=== PATIENT | male | born 1950 | race African-American/Black ===

== ENCOUNTER 2018-01-13 11:32 | Inpatient (IN) ==
[2018-01-17 11:28] VITALS: BP 121/64
== END 2018-01-17 15:00 | disposition home health service (06) | DRG 638 ==
LOC: N.ED 11:32 → N.EDINP 14:43 → SUATTDRO 14:43 → N.3E 16:10
PROVIDERS: ATTEND Internal Medicine Infectious Disease

== ENCOUNTER 2018-01-29 15:54 | Inpatient (IN) ==
[2018-01-29 17:06] LABS: Basophils # 0.1 10*3/uL (0.0-0.2); Basophils % 0.9 % (0.0-0.8); Eosinophils # 0.1 10*3/uL (0.0-0.87); Eosinophils % 2.2 % (0.00-10.9); Hematocrit 27.9 VOL% (42.0-52.0); Immature Granulocytes % 0.2 %; Immature Granulocytes Absolute 0.01 #; Lymphocytes # 2.2 10*3/uL (1.4-4.0); Lymphocytes % 39.5 % (21.2-54.2); Mean Corpuscular HGB Conc 32.3 GM/DL (32-36); Mean Corpuscular Hemoglobin 29 PG (27-34); Mean Corpuscular Volume 90.9 FL (87-102); Mean Platelet Volume 9.9 FL (9.6-12.0); Monocytes # 0.6 10*3/uL (0.11-0.8); Monocytes % 10.9 % (1.7-12.7); Neutrophils # 2.6 10*3/uL (1.4-7.4); Neutrophils % 46.3 % (38.7-73.9); Platelet Count 301 T/CUMM (130-400); Red Blood Count 3.07 MC/CUMM (3.8-5.5); Red Cell Distribution Width 16.1 % (9.3-17.3); White Blood Count 5.5 T/CUMM (4-12)
[2018-01-29 17:32] LABS: Alanine Aminotransferase 50 U/L (16-61); Albumin 1.4 G/DL (3.4-5.0); Alkaline Phosphatase 100 U/L (45-117); Aspartate Amino Transferase 41 U/L (0-37); Bilirubin,Total < 0.39 MG/DL (0.2-1.0); Blood Urea Nitrogen 11 MG/DL (7-18); Calcium 7.8 MG/DL (8.5-10.1); Glucose 199 MG/DL (74-106); Osmolality,Calculated 277.8 MOS/KG (273-304); Potassium 4.8 MMOL/L (3.5-5.1); Sodium 137 MMOL/L (136-145); Total Protein 6.2 G/DL (6.4-8.3)
[2018-01-29 20:19] LABS: INR 1.1; PT Patient Result 11.3 SECS; Partial Thromboplastin Time 28.2 SECS (0-40)
[2018-01-29 21:15] LABS: Apearance,Urine CLEAR (Clear); Bilirubin,Urine Negative (Negative); Blood, Urine Negative (Negative); Glucose,Urine (UA) 50 mg/dL (Negative); Ketones,Urine Negative (Negative); Nitrite,Urine Negative (Negative); Protein,Urine Negative; Squamous Epithelial Cell,Urine Occasional /HPF (0-10); Urine Color Yellow (Yellow); Urine Specific Gravity 1.008 (1.001-1.035); Urine Urobilinogen < 2.0 EU/DL (0.2-1.0); WBC,Urine <1 /HPF (0-6)
[2018-01-29] MEDS ORDERED: FUROSEMIDE 40 MG/4 ML VIAL IV STA (21:52)
[2018-01-30] MEDS ORDERED: POTASSIUM CHLORIDE 20 MEQ TABLET PO PRN (00:11)
[2018-01-30] MEDS ORDERED: GLUCAGON 1 MG VIAL IM PRN (00:11)
[2018-01-30] MEDS ORDERED: DEXTROSE 50% 25 GM/50 ML VIAL IV PRN (00:11)
[2018-01-30] MEDS: MORPHINE 4 MG/1 ML VIAL IV PRN ×5 (00:54→21:10)
[2018-01-30] MEDS: INSULIN REGULAR 100 UNIT/ML SUBCUT SCH ×4 (00:54→18:20)
[2018-01-30 01:19] LABS: % Iron Saturation 53.4 % (18-50); Free T4 (Free Thyroxine) 1.03 NG/DL (0.76-1.46); Total Protein 6.7 G/DL (6.4-8.3)
[2018-01-30 01:21] LABS: Risk Ratio 1.79
[2018-01-30 01:28] LABS: Basophils # 0.1 10*3/uL (0.0-0.2); Eosinophils # 0.1 10*3/uL (0.0-0.87); Eosinophils % 2.7 % (0.00-10.9); Hemoglobin 9.3 GM/DL (14.0-18.0); Immature Granulocytes % 0.4 %; Immature Granulocytes Absolute 0.02 #; Lymphocytes % 41.5 % (21.2-54.2); Mean Corpuscular HGB Conc 32.1 GM/DL (32-36); Mean Corpuscular Hemoglobin 29 PG (27-34); Mean Corpuscular Volume 90.1 FL (87-102); Monocytes # 0.5 10*3/uL (0.11-0.8); Neutrophils # 2.1 10*3/uL (1.4-7.4); Neutrophils % 43.4 % (38.7-73.9); Platelet Count 416 T/CUMM (130-400); Red Blood Count 3.22 MC/CUMM (3.8-5.5); White Blood Count 4.9 T/CUMM (4-12)
[2018-01-30 01:55] LABS: Macrocytosis Slight; Platelet Estimate Normal; Polychromasia Slight
[2018-01-30 05:31] LABS: Folate 13.3 NG/ML (5.4-24.0); HIV Antigen/Antibody Result Nonreactive (Nonreactive); Hepatitis A Ab IgM Quant 0.17 Index; Hepatitis A Ab IgM Result Negative (Negative); Hepatitis B Core IgM Quant 0.18 Index; Hepatitis B Core IgM Result Negative (Negative); Hepatitis B Surface Ag Quant 0.72 Index; Hepatitis B Surface Ag Result Negative (Negative); Hepatitis C Virus Ab Quant 0.21 Index; Hepatitis C Virus Ab Result Negative (Negative); Vitamin B12 1192 PG/ML (211-911)
[2018-01-30 07:46] LABS: Total Protein (Chem) 6.7 G/DL (6.4-8.3)
[2018-01-30] MEDS ORDERED: metFORMIN 500 MG TABLET PO SCH (08:00)
[2018-01-30 08:23] LABS: Eosinophils 4 % (0-10); Lymphocytes 43 % (20-55); Segmented Neutrophils 46 % (50-85); Total Cells Counted 100
[2018-01-30] MEDS: GABAPENTIN 300 MG CAPSULE PO SCH ×2 (09:19→21:10)
[2018-01-30] MEDS: ASCORBIC ACID 500 MG TABLET PO SCH (09:20)
[2018-01-30] MEDS: FERROUS SULFATE 325 MG TABLET PO SCH ×2 (09:21→21:10)
[2018-01-30] MEDS: CHOLECALCIFEROL 400 UNIT TABLET PO SCH ×2 (09:21→21:10)
[2018-01-30] MEDS: ASPIRIN EC 81 MG TABLET PO SCH (09:21)
[2018-01-30] MEDS: DOCUSATE SODIUM 100 MG CAPSULE PO SCH ×2 (09:22→21:10)
[2018-01-30] MEDS: MAGNESIUM OXIDE 400 MG TABLET PO SCH (09:22)
[2018-01-30] MEDS: PANTOPRAZOLE 40 MG TABLET PO SCH (09:22)
[2018-01-30] MEDS: NEBIVOLOL 5 MG TABLET PO SCH (09:23)
[2018-01-30] MEDS: TERBINAFINE 250 MG TABLET PO SCH (09:23)
[2018-01-30] MEDS: FUROSEMIDE 40 MG/4 ML VIAL IV SCH ×2 (09:26→15:25)
[2018-01-30 10:14] LABS: Albumin (SPE) 2.1 G/DL (3.2-5.3); Albumin (SPE) Rel % 31.3 %; Alpha 1 (SPE) 0.3 G/DL (0.1-0.4); Alpha 1 (SPE) Rel % 4.5 %
[2018-01-30 10:15] LABS: Alpha 2 (SPE) Rel % 14.7 %; Beta (SPE) 0.8 G/DL (0.5-1.1); Beta (SPE) Rel % 11.6 %; Gamma (SPE) 2.5 G/DL (0.7-1.7); Gamma (SPE) Rel % 37.9 %
[2018-01-30] MEDS: LEVOTHYROXINE 100 MCG VIAL IV SCH (10:59)
[2018-01-30] MEDS: metFORMIN 500 MG TABLET PO SCH (18:20)
[2018-01-30 20:06] LABS: Basophils % 0.6 % (0.0-0.8); Eosinophils # 0.1 10*3/uL (0.0-0.87); Eosinophils % 2.5 % (0.00-10.9); Hematocrit 27.6 VOL% (42.0-52.0); Hemoglobin 8.8 GM/DL (14.0-18.0); Immature Granulocytes % 0.4 %; Immature Granulocytes Absolute 0.02 #; Lymphocytes # 1.6 10*3/uL (1.4-4.0); Lymphocytes % 34.1 % (21.2-54.2); Mean Corpuscular HGB Conc 31.9 GM/DL (32-36); Mean Corpuscular Hemoglobin 29 PG (27-34); Mean Corpuscular Volume 90.2 FL (87-102); Mean Platelet Volume 9.6 FL (9.6-12.0); Monocytes # 0.6 10*3/uL (0.11-0.8); Monocytes % 12.3 % (1.7-12.7); Neutrophils # 2.4 10*3/uL (1.4-7.4); Neutrophils % 50.1 % (38.7-73.9); Platelet Count 384 T/CUMM (130-400); Red Blood Count 3.06 MC/CUMM (3.8-5.5); Red Cell Distribution Width 16.1 % (9.3-17.3); White Blood Count 4.7 T/CUMM (4-12)
[2018-01-30 20:38] LABS: Immunoglobulin A 454 MG/DL (70-400); Immunoglobulin G 1750 MG/DL (700-1600); Immunoglobulin M 75 MG/DL (40-230)
[2018-01-31 05:15] LABS: Eosinophils 2 % (0-10); Lymphocytes 39 % (20-55); Segmented Neutrophils 53 % (50-85); Total Cells Counted 100
[2018-01-31 05:19] LABS: Macrocytosis Slight; Platelet Estimate Normal; Polychromasia Slight
[2018-01-31] MEDS: LEVOTHYROXINE 100 MCG VIAL IV SCH (06:43)
[2018-01-31] MEDS: INSULIN REGULAR 100 UNIT/ML SUBCUT SCH ×4 (06:48→18:36)
[2018-01-31] MEDS: MORPHINE 4 MG/1 ML VIAL IV PRN ×3 (07:06→18:16)
[2018-01-31 08:14] LABS: Immunoglobulin A (Chem) 454 MG/DL (70-400); Immunoglobulin G (Chem) 1750 MG/DL (700-1600); Immunoglobulin M (Chem) 75 MG/DL (40-230)
[2018-01-31] MEDS: FUROSEMIDE 40 MG/4 ML VIAL IV SCH ×2 (09:46→16:59)
[2018-01-31] MEDS: PANTOPRAZOLE 40 MG TABLET PO SCH (09:53)
[2018-01-31] MEDS: NEBIVOLOL 5 MG TABLET PO SCH (09:54)
[2018-01-31] MEDS: ASPIRIN EC 81 MG TABLET PO SCH (09:54)
[2018-01-31] MEDS: ASCORBIC ACID 500 MG TABLET PO SCH (09:54)
[2018-01-31] MEDS: FERROUS SULFATE 325 MG TABLET PO SCH ×2 (09:54→21:48)
[2018-01-31] MEDS: MAGNESIUM OXIDE 400 MG TABLET PO SCH (09:54)
[2018-01-31] MEDS: DOCUSATE SODIUM 100 MG CAPSULE PO SCH ×2 (09:55→21:48)
[2018-01-31] MEDS: CHOLECALCIFEROL 400 UNIT TABLET PO SCH ×2 (09:55→21:48)
[2018-01-31] MEDS: GABAPENTIN 300 MG CAPSULE PO SCH ×2 (09:55→21:48)
[2018-01-31] MEDS: TERBINAFINE 250 MG TABLET PO SCH (09:55)
[2018-01-31] MEDS: metFORMIN 500 MG TABLET PO SCH ×2 (09:55→17:03)
[2018-01-31] MEDS ORDERED: LIDOCAINE 1% 20 ML VIAL MISC INJ ONE (15:04)
[2018-01-31] MEDS: SKIN HEALING OINT (AQUAPHOR) 50 GM TUBE TOP SCH (17:45)
[2018-01-31] MEDS: BACITRACIN OINT 0.9 GM PACK TOP SCH (17:45)
[2018-01-31 20:41] LABS: Collection Time,Urine 24 HOURS
[2018-01-31 20:42] LABS: Total Protein 24 Hr Ur Result 148 MG/24HR (0-149.1); Total Volume,Urine 1850 ML (400-2000)
[2018-02-01] MEDS: MORPHINE 4 MG/1 ML VIAL IV PRN ×4 (02:09→20:33)
[2018-02-01 06:03] LABS: Basophils % 0.4 % (0.0-0.8); Eosinophils # 0.1 10*3/uL (0.0-0.87); Eosinophils % 2.8 % (0.00-10.9); Hematocrit 23.2 VOL% (42.0-52.0); Hemoglobin 7.7 GM/DL (14.0-18.0); Immature Granulocytes % 0.2 %; Immature Granulocytes Absolute 0.01 #; Lymphocytes # 1.6 10*3/uL (1.4-4.0); Lymphocytes % 34.1 % (21.2-54.2); Mean Corpuscular HGB Conc 33.2 GM/DL (32-36); Mean Corpuscular Hemoglobin 29 PG (27-34); Mean Corpuscular Volume 88.5 FL (87-102); Mean Platelet Volume 10.2 FL (9.6-12.0); Monocytes # 0.6 10*3/uL (0.11-0.8); Monocytes % 11.9 % (1.7-12.7); NRBC # 0.02 10*3/uL; Neutrophils # 2.4 10*3/uL (1.4-7.4); Neutrophils % 50.6 % (38.7-73.9); Platelet Count 338 T/CUMM (130-400); Red Blood Count 2.62 MC/CUMM (3.8-5.5); Red Cell Distribution Width 16.2 % (9.3-17.3); White Blood Count 4.6 T/CUMM (4-12)
[2018-02-01 06:30] LABS: Bilirubin,Total 0.4 MG/DL (0.2-1.0); Calcium 7.1 MG/DL (8.5-10.1); Total Protein 4.6 G/DL (6.4-8.3)
[2018-02-01 06:31] LABS: Potassium 4.4 MMOL/L (3.5-5.1)
[2018-02-01] MEDS: LEVOTHYROXINE 100 MCG VIAL IV SCH (06:51)
[2018-02-01] MEDS ORDERED: SODIUM CHLORIDE 0.9% 1,000 ML IV PRN (07:00)
[2018-02-01] MEDS: INSULIN REGULAR 100 UNIT/ML SUBCUT SCH ×4 (07:09→17:09)
[2018-02-01] MEDS: FUROSEMIDE 40 MG/4 ML VIAL IV SCH ×2 (09:22→15:34)
[2018-02-01] MEDS: TERBINAFINE 250 MG TABLET PO SCH (09:23)
[2018-02-01] MEDS: GABAPENTIN 300 MG CAPSULE PO SCH ×2 (09:23→20:28)
[2018-02-01] MEDS: DOCUSATE SODIUM 100 MG CAPSULE PO SCH ×2 (09:23→20:28)
[2018-02-01] MEDS: ASCORBIC ACID 500 MG TABLET PO SCH (09:23)
[2018-02-01] MEDS: MAGNESIUM OXIDE 400 MG TABLET PO SCH (09:23)
[2018-02-01] MEDS: ASPIRIN EC 81 MG TABLET PO SCH (09:23)
[2018-02-01] MEDS: PANTOPRAZOLE 40 MG TABLET PO SCH (09:23)
[2018-02-01] MEDS: metFORMIN 500 MG TABLET PO SCH ×2 (09:23→16:53)
[2018-02-01] MEDS: CHOLECALCIFEROL 400 UNIT TABLET PO SCH ×2 (09:23→20:28)
[2018-02-01] MEDS: NEBIVOLOL 5 MG TABLET PO SCH (09:24)
[2018-02-01] MEDS: FERROUS SULFATE 325 MG TABLET PO SCH ×2 (09:24→20:28)
[2018-02-01] MEDS: BACITRACIN OINT 0.9 GM PACK TOP SCH (09:27)
[2018-02-01] MEDS: SKIN HEALING OINT (AQUAPHOR) 50 GM TUBE TOP SCH (09:27)
[2018-02-01 13:53] LABS: Immuno Free Light Chain Kappa 4.94 MG/DL (0.33-1.94); Immuno Free Light Chain Lambda 7.92 MG/DL (0.57-2.63); Immuno Free Light Chain Ratio 0.62 MG/DL (0.26-1.65)
[2018-02-02] MEDS: INSULIN REGULAR 100 UNIT/ML SUBCUT SCH ×3 (00:38→14:00)
[2018-02-02] MEDS: MORPHINE 4 MG/1 ML VIAL IV PRN (05:47)
[2018-02-02 06:18] LABS: Basophils % 0.5 % (0.0-0.8); Eosinophils # 0.2 10*3/uL (0.0-0.87); Eosinophils % 3.6 % (0.00-10.9); Hematocrit 30.4 VOL% (42.0-52.0); Immature Granulocytes % 0.5 %; Immature Granulocytes Absolute 0.03 #; Lymphocytes # 1.7 10*3/uL (1.4-4.0); Lymphocytes % 31.4 % (21.2-54.2); Mean Corpuscular HGB Conc 32.9 GM/DL (32-36); Mean Corpuscular Hemoglobin 29 PG (27-34); Mean Corpuscular Volume 87.6 FL (87-102); Mean Platelet Volume 10.2 FL (9.6-12.0); Monocytes # 0.6 10*3/uL (0.11-0.8); Neutrophils # 2.9 10*3/uL (1.4-7.4); Platelet Count 315 T/CUMM (130-400); Red Blood Count 3.47 MC/CUMM (3.8-5.5); Red Cell Distribution Width 16.9 % (9.3-17.3); White Blood Count 5.5 T/CUMM (4-12)
[2018-02-02] MEDS: LEVOTHYROXINE 100 MCG VIAL IV SCH (06:20)
[2018-02-02 06:55] LABS: Albumin 1.1 G/DL (3.4-5.0); Bilirubin,Total 0.4 MG/DL (0.2-1.0); Calcium 7.5 MG/DL (8.5-10.1); Osmolality,Calculated 280.3 MOS/KG (273-304); Potassium 4.6 MMOL/L (3.5-5.1); Total Protein 5.1 G/DL (6.4-8.3)
[2018-02-02] MEDS ORDERED: MAGNESIUM SULF RIDER 4 GM in PREMIX 1 EACH IV PRN (07:08)
[2018-02-02] MEDS ORDERED: MAGNESIUM SULF RIDER 2 GM in PREMIX 1 EACH IV PRN (07:08)
[2018-02-02] MEDS: metFORMIN 500 MG TABLET PO SCH (09:06)
[2018-02-02] MEDS: FERROUS SULFATE 325 MG TABLET PO SCH (09:07)
[2018-02-02] MEDS: DOCUSATE SODIUM 100 MG CAPSULE PO SCH (09:07)
[2018-02-02] MEDS: ASPIRIN EC 81 MG TABLET PO SCH (09:07)
[2018-02-02] MEDS: NEBIVOLOL 5 MG TABLET PO SCH (09:07)
[2018-02-02] MEDS: MAGNESIUM OXIDE 400 MG TABLET PO SCH (09:08)
[2018-02-02] MEDS: GABAPENTIN 300 MG CAPSULE PO SCH (09:08)
[2018-02-02] MEDS: ASCORBIC ACID 500 MG TABLET PO SCH (09:08)
[2018-02-02] MEDS: PANTOPRAZOLE 40 MG TABLET PO SCH (09:08)
[2018-02-02] MEDS: TERBINAFINE 250 MG TABLET PO SCH (09:08)
[2018-02-02] MEDS: CHOLECALCIFEROL 400 UNIT TABLET PO SCH (09:08)
[2018-02-02] MEDS: FUROSEMIDE 40 MG/4 ML VIAL IV SCH (09:09)
[2018-02-02] MEDS: SKIN HEALING OINT (AQUAPHOR) 50 GM TUBE TOP SCH (10:40)
[2018-02-02] MEDS: BACITRACIN OINT 0.9 GM PACK TOP SCH (10:41)
[2018-02-02 11:50] VITALS: BP 102/67
== END 2018-02-02 14:40 | disposition home health service (06) | DRG 845 ==
LOC: N.ED 15:54 → N.EDINP 23:01 → N.3E 23:41
PROVIDERS: ADMIT Internal Medicine; ATTEND Internal Medicine

== ENCOUNTER 2019-10-17 19:11 | Inpatient (IN) ==
[2019-10-17] MEDS ORDERED: methylPREDNISolone SOD SUC 125 MG/2 ML VIAL IV STA (19:43)
[2019-10-17] MEDS ORDERED: FUROSEMIDE 100 MG/10 ML VIAL IV STA (19:43)
[2019-10-17] MEDS ORDERED: ONDANSETRON 4 MG/2 ML VIAL IV STA ×2 (19:43→21:38)
[2019-10-17] MEDS ORDERED: ALBUTEROL/IPRATROPIUM 3 ML NEB RESP TX STA (19:43)
[2019-10-17 20:32] LABS: Basophils % 0.2 % (0.0-0.8); Eosinophils # 0.1 10*3/uL (0.0-0.87); Eosinophils % 0.9 % (0.00-10.9); Hematocrit 36.2 VOL% (42.0-52.0); Hemoglobin 11.2 GM/DL (14.0-18.0); Immature Granulocytes % 0.4 %; Immature Granulocytes Absolute 0.02 #; Lymphocytes # 1.4 10*3/uL (1.4-4.0); Lymphocytes % 26.7 % (21.2-54.2); Mean Corpuscular HGB Conc 30.9 GM/DL (32-36); Mean Corpuscular Volume 91.2 FL (87-102); Mean Platelet Volume 10.3 FL (9.6-12.0); Monocytes % 8.5 % (1.7-12.7); Neutrophils % 63.3 % (38.7-73.9); Platelet Count 270 T/CUMM (130-400); Red Blood Count 3.97 MC/CUMM (3.8-5.5); Red Cell Distribution Width 15.9 % (9.3-17.3); White Blood Count 5.3 T/CUMM (4-12)
[2019-10-17 21:17] LABS: PT Patient Result 95.9 SECS (9.8-11.9)
[2019-10-17 21:18] LABS: INR 10.1
[2019-10-17 21:22] LABS: Apearance,Urine CLEAR (Clear); Bilirubin,Urine Negative (Negative); Blood, Urine Small mg/dL (Negative); Glucose,Urine (UA) Negative (Negative); Hyaline Casts,Urine 10 /LPF (0-3); Ketones,Urine Negative (Negative); Mucus,Urine Occasional /LPF (Occasional); Nitrite,Urine Negative (Negative); Protein,Urine Negative; RBC,Urine 1 /HPF (0-4); Squamous Epithelial Cell,Urine Occasional /HPF (0-10); Urine Color Yellow (Yellow); Urine Urobilinogen < 2.0 EU/DL (0.2-1.0); WBC,Urine 2 /HPF (0-6)
[2019-10-17] MEDS ORDERED: MORPHINE 4 MG/1 ML VIAL IV STA (21:38)
[2019-10-17 21:41] LABS: Alanine Aminotransferase 26 U/L (16-61); Albumin 1.3 G/DL (3.4-5.0); Alkaline Phosphatase 148 U/L (45-117); Aspartate Amino Transferase 28 U/L (0-37); Bilirubin,Total < 0.39 MG/DL (0.2-1.0); Blood Urea Nitrogen 10 MG/DL (7-18); Calcium 7.6 MG/DL (8.5-10.1); Estimated Glom Filtration Rate 54 ML/MIN; Glucose 65 MG/DL (74-106); Osmolality,Calculated 275.4 MOS/KG (273-304); Total Protein 5.9 G/DL (6.4-8.3)
[2019-10-17] MEDS ORDERED: DEXTROSE 50% 25 GM/50 ML VIAL IV STA (21:45)
[2019-10-17] MEDS ORDERED: PHYTONADIONE 5 MG/5 ML ORAL.SYR PO ONE (21:47)
[2019-10-17] MEDS ORDERED: DEXTROSE 50% 25 GM/50 ML SYRINGE IV ONE (22:07)
[2019-10-17] MEDS ORDERED: GLUCAGON 1 MG VIAL IM PRN (23:56)
[2019-10-17] MEDS ORDERED: DEXTROSE 50% 25 GM/50 ML SYRINGE IV PRN (23:56)
[2019-10-17] MEDS ORDERED: ONDANSETRON 4 MG/2 ML VIAL IV PRN (23:56)
[2019-10-18] MEDS: INSULIN REGULAR 100 UNIT/ML SUBCUT SCH ×4 (00:13→19:25)
[2019-10-18] MEDS: SODIUM CHLORIDE 0.9% 1,000 ML IV SCH (01:31)
[2019-10-18] MEDS: MORPHINE 4 MG/1 ML VIAL IV PRN ×3 (04:36→16:10)
[2019-10-18 05:13] LABS: Hematocrit 34.7 VOL% (42.0-52.0); Hemoglobin 10.7 GM/DL (14.0-18.0); Immature Granulocytes % 0.3 %; Immature Granulocytes Absolute 0.02 #; Lymphocytes # 0.5 10*3/uL (1.4-4.0); Lymphocytes % 8.3 % (21.2-54.2); Mean Corpuscular HGB Conc 30.8 GM/DL (32-36); Mean Corpuscular Volume 90.4 FL (87-102); Mean Platelet Volume 10.6 FL (9.6-12.0); Monocytes % 1.2 % (1.7-12.7); Neutrophils % 90.2 % (38.7-73.9); Platelet Count 243 T/CUMM (130-400); Red Blood Count 3.84 MC/CUMM (3.8-5.5); Red Cell Distribution Width 15.9 % (9.3-17.3); White Blood Count 6.5 T/CUMM (4-12)
[2019-10-18 05:39] LABS: Bilirubin,Total 0.5 MG/DL (0.2-1.0); Calcium 7.3 MG/DL (8.5-10.1); Osmolality,Calculated 276.8 MOS/KG (273-304); Total Protein 5.3 G/DL (6.4-8.3)
[2019-10-18 07:52] LABS: PT Patient Result 82.2 SECS (9.8-11.9)
[2019-10-18 07:54] LABS: INR 8.6
[2019-10-18] MEDS: DOCUSATE SODIUM 100 MG CAPSULE PO SCH ×2 (08:55→21:05)
[2019-10-18] MEDS: ROSUVASTATIN 10 MG TABLET PO SCH (08:55)
[2019-10-18] MEDS: CHOLECALCIFEROL 400 UNIT TABLET PO SCH (08:55)
[2019-10-18] MEDS: GABAPENTIN 300 MG CAPSULE PO SCH ×2 (08:55→21:06)
[2019-10-18] MEDS: ASCORBIC ACID 500 MG TABLET PO SCH (08:55)
[2019-10-18] MEDS: ASPIRIN 325 MG TABLET PO SCH (08:55)
[2019-10-18] MEDS: METOPROLOL TARTRATE 25 MG TABLET PO SCH ×2 (08:56→21:06)
[2019-10-18] MEDS: FUROSEMIDE 20 MG TABLET PO SCH ×2 (08:56→16:12)
[2019-10-18] MEDS: POTASSIUM CHLORIDE 20 MEQ TABLET PO SCH (08:56)
[2019-10-18] MEDS: FUROSEMIDE 40 MG/4 ML VIAL IV SCH ×2 (08:57→16:16)
[2019-10-18] MEDS: MAGNESIUM GLUCONATE 500 MG TABLET PO SCH (08:57)
[2019-10-18] MEDS: PANTOPRAZOLE 40 MG VIAL IV SCH (08:59)
[2019-10-18] MEDS ORDERED: INSULIN GLARGINE 100 UNIT/ML SUBCUT SCH (09:00)
[2019-10-18] MEDS: ALBUMIN 25% 25 GM in PREMIX 1 EACH IV SCH (16:31)
[2019-10-18] MEDS ORDERED: DEXTROSE 10% 250 ML BAG IV ONE (18:21)
[2019-10-18] MEDS ORDERED: DEXTROSE 10% 250 ML IV ONE (18:47)
[2019-10-18] MEDS: TAMSULOSIN 0.4 MG CAPSULE PO SCH (21:05)
[2019-10-19] MEDS: INSULIN REGULAR 100 UNIT/ML SUBCUT SCH ×4 (01:02→18:16)
[2019-10-19] MEDS: DEXTROSE 5% 1,000 ML IV SCH (01:02)
[2019-10-19] MEDS: SODIUM CHLORIDE 0.9% 1,000 ML IV SCH (09:11)
[2019-10-19 09:54] LABS: Albumin 1.5 G/DL (3.4-5.0); Bilirubin,Total 0.4 MG/DL (0.2-1.0); Calcium 7.2 MG/DL (8.5-10.1); Osmolality,Calculated 274.8 MOS/KG (273-304); Total Protein 4.4 G/DL (6.4-8.3)
[2019-10-19] MEDS: ASCORBIC ACID 500 MG TABLET PO SCH (10:12)
[2019-10-19] MEDS: METOPROLOL TARTRATE 25 MG TABLET PO SCH (10:12)
[2019-10-19] MEDS: ALBUMIN 25% 25 GM in PREMIX 1 EACH IV SCH ×2 (10:12)
[2019-10-19] MEDS: CHOLECALCIFEROL 400 UNIT TABLET PO SCH (10:12)
[2019-10-19] MEDS: POTASSIUM CHLORIDE 20 MEQ TABLET PO SCH (10:12)
[2019-10-19] MEDS: PANTOPRAZOLE 40 MG VIAL IV SCH (10:12)
[2019-10-19] MEDS: MAGNESIUM GLUCONATE 500 MG TABLET PO SCH (10:12)
[2019-10-19] MEDS: GABAPENTIN 300 MG CAPSULE PO SCH ×2 (10:12→22:34)
[2019-10-19] MEDS: ROSUVASTATIN 10 MG TABLET PO SCH (10:12)
[2019-10-19] MEDS: ASPIRIN 325 MG TABLET PO SCH (10:12)
[2019-10-19] MEDS: FUROSEMIDE 40 MG/4 ML VIAL IV SCH ×2 (10:12→17:02)
[2019-10-19] MEDS: DOCUSATE SODIUM 100 MG CAPSULE PO SCH ×2 (10:12→22:34)
[2019-10-19] MEDS: FUROSEMIDE 20 MG TABLET PO SCH (10:22)
[2019-10-19 10:30] LABS: INR 4.7
[2019-10-19 10:32] LABS: PT Patient Result 46.4 SECS (9.8-11.9)
[2019-10-19 10:40] LABS: Calcium 7.3 MG/DL (8.5-10.1); Osmolality,Calculated 271.1 MOS/KG (273-304)
[2019-10-19 10:48] LABS: Basophils % 0.1 % (0.0-0.8); Hematocrit 25.4 VOL% (42.0-52.0); Immature Granulocytes % 2.5 %; Immature Granulocytes Absolute 0.42 #; Lymphocytes # 0.9 10*3/uL (1.4-4.0); Lymphocytes % 5.5 % (21.2-54.2); Mean Corpuscular HGB Conc 31.9 GM/DL (32-36); Mean Corpuscular Volume 89.1 FL (87-102); Mean Platelet Volume 10.7 FL (9.6-12.0); Neutrophils % 85.9 % (38.7-73.9); Red Blood Count 2.85 MC/CUMM (3.8-5.5); Red Cell Distribution Width 16.2 % (9.3-17.3)
[2019-10-19 10:51] LABS: Hemoglobin 8.1 GM/DL (14.0-18.0); Platelet Count 185 T/CUMM (130-400); White Blood Count 16.8 T/CUMM (4-12)
[2019-10-19 11:18] LABS: Anisocytosis 1+; Band Neutrophils 30 % (0-10); Lymphocytes 6 % (20-55); Metamyelocytes 4 %; Myelocytes 2 %; Platelet Estimate Normal; Segmented Neutrophils 52 % (50-85); Total Cells Counted 100
[2019-10-19 11:20] LABS: Misc Morphology 8F; Smudge Cells Few
[2019-10-19] MEDS: MORPHINE 4 MG/1 ML VIAL IV PRN (12:35)
[2019-10-19] MEDS: TAMSULOSIN 0.4 MG CAPSULE PO SCH (22:34)
[2019-10-19] MEDS: METOPROLOL TARTRATE 50 MG TABLET PO SCH (22:34)
[2019-10-20 05:04] LABS: Basophils % 0.1 % (0.0-0.8); Eosinophils % 0.1 % (0.00-10.9); Hematocrit 24.4 VOL% (42.0-52.0); Hemoglobin 7.9 GM/DL (14.0-18.0); Immature Granulocytes % 0.6 %; Immature Granulocytes Absolute 0.07 #; Lymphocytes # 0.9 10*3/uL (1.4-4.0); Lymphocytes % 7.3 % (21.2-54.2); Mean Corpuscular HGB Conc 32.4 GM/DL (32-36); Mean Corpuscular Volume 86.2 FL (87-102); Mean Platelet Volume 10.7 FL (9.6-12.0); Monocytes % 4.8 % (1.7-12.7); Neutrophils % 87.1 % (38.7-73.9); Platelet Count 143 T/CUMM (130-400); Red Blood Count 2.83 MC/CUMM (3.8-5.5); Red Cell Distribution Width 15.9 % (9.3-17.3); White Blood Count 12.2 T/CUMM (4-12)
[2019-10-20 05:36] LABS: Albumin 1.5 G/DL (3.4-5.0); Bilirubin,Total 0.6 MG/DL (0.2-1.0); Calcium 7.4 MG/DL (8.5-10.1); Osmolality,Calculated 277.8 MOS/KG (273-304); Total Protein 4.2 G/DL (6.4-8.3)
[2019-10-20] MEDS: INSULIN REGULAR 100 UNIT/ML SUBCUT SCH ×5 (05:39→17:42)
[2019-10-20 05:54] LABS: INR 3.7; PT Patient Result 36.9 SECS (9.8-11.9)
[2019-10-20 06:09] LABS: Band Neutrophils 8 % (0-10); Lymphocytes 3 % (20-55); Platelet Estimate Normal; Segmented Neutrophils 88 % (50-85); Total Cells Counted 100
[2019-10-20 06:10] LABS: Anisocytosis Slight; Hypochromasia 1+; Microcytosis 2+
[2019-10-20 06:11] LABS: Target Cells Slight
[2019-10-20] MEDS: ASPIRIN 325 MG TABLET PO SCH (09:51)
[2019-10-20] MEDS: POTASSIUM CHLORIDE 20 MEQ TABLET PO SCH (09:51)
[2019-10-20] MEDS: CHOLECALCIFEROL 400 UNIT TABLET PO SCH (09:51)
[2019-10-20] MEDS: DOCUSATE SODIUM 100 MG CAPSULE PO SCH ×2 (09:51→21:25)
[2019-10-20] MEDS: ROSUVASTATIN 10 MG TABLET PO SCH (09:51)
[2019-10-20] MEDS: ASCORBIC ACID 500 MG TABLET PO SCH (09:51)
[2019-10-20] MEDS: METOPROLOL TARTRATE 50 MG TABLET PO SCH ×2 (09:51→21:23)
[2019-10-20] MEDS: FUROSEMIDE 40 MG/4 ML VIAL IV SCH ×2 (09:52→14:59)
[2019-10-20] MEDS: MAGNESIUM GLUCONATE 500 MG TABLET PO SCH (09:52)
[2019-10-20] MEDS: PANTOPRAZOLE 40 MG VIAL IV SCH (09:52)
[2019-10-20] MEDS: GABAPENTIN 300 MG CAPSULE PO SCH ×2 (09:52→21:24)
[2019-10-20] MEDS: DEXTROSE 5% 1,000 ML IV SCH (10:19)
[2019-10-20] MEDS: TAMSULOSIN 0.4 MG CAPSULE PO SCH (21:25)
[2019-10-21] MEDS: INSULIN REGULAR 100 UNIT/ML SUBCUT SCH ×5 (00:14→18:06)
[2019-10-21 06:18] LABS: Basophils % 0.1 % (0.0-0.8); Eosinophils # 0.1 10*3/uL (0.0-0.87); Eosinophils % 0.5 % (0.00-10.9); Hematocrit 27.6 VOL% (42.0-52.0); Hemoglobin 8.9 GM/DL (14.0-18.0); Immature Granulocytes % 0.3 %; Immature Granulocytes Absolute 0.04 #; Lymphocytes # 1.1 10*3/uL (1.4-4.0); Lymphocytes % 8.3 % (21.2-54.2); Mean Corpuscular HGB Conc 32.2 GM/DL (32-36); Mean Corpuscular Volume 85.7 FL (87-102); Mean Platelet Volume 11.1 FL (9.6-12.0); Neutrophils % 85.8 % (38.7-73.9); Platelet Count 146 T/CUMM (130-400); Red Blood Count 3.22 MC/CUMM (3.8-5.5); Red Cell Distribution Width 15.9 % (9.3-17.3); White Blood Count 12.9 T/CUMM (4-12)
[2019-10-21 06:31] LABS: INR 3.7; PT Patient Result 36.9 SECS (9.8-11.9)
[2019-10-21 06:46] LABS: Band Neutrophils 2 % (0-10); Eosinophils 1 % (0-10); Hypochromasia 1+; Lymphocytes 2 % (20-55); Nucleated Red Blood Cells 1 (0-5); Platelet Estimate Adequate; Segmented Neutrophils 91 % (50-85); Total Cells Counted 100
[2019-10-21 06:47] LABS: Microcytosis 1+
[2019-10-21 06:50] LABS: Calcium 7.2 MG/DL (8.5-10.1); Osmolality,Calculated 281.3 MOS/KG (273-304)
[2019-10-21] MEDS: GABAPENTIN 300 MG CAPSULE PO SCH ×2 (08:50→21:12)
[2019-10-21] MEDS: PANTOPRAZOLE 40 MG VIAL IV SCH (08:50)
[2019-10-21] MEDS: FUROSEMIDE 40 MG/4 ML VIAL IV SCH (08:50)
[2019-10-21] MEDS: MAGNESIUM GLUCONATE 500 MG TABLET PO SCH (08:51)
[2019-10-21] MEDS: POTASSIUM CHLORIDE 20 MEQ TABLET PO SCH (08:51)
[2019-10-21] MEDS: ASCORBIC ACID 500 MG TABLET PO SCH (08:51)
[2019-10-21] MEDS: ASPIRIN 325 MG TABLET PO SCH (08:51)
[2019-10-21] MEDS: ROSUVASTATIN 10 MG TABLET PO SCH (08:51)
[2019-10-21] MEDS: DOCUSATE SODIUM 100 MG CAPSULE PO SCH ×2 (08:51→21:12)
[2019-10-21] MEDS: CHOLECALCIFEROL 400 UNIT TABLET PO SCH (08:51)
[2019-10-21] MEDS: METOPROLOL TARTRATE 50 MG TABLET PO SCH (08:52)
[2019-10-21] MEDS: MORPHINE 4 MG/1 ML VIAL IV PRN (09:56)
[2019-10-21] MEDS: TAMSULOSIN 0.4 MG CAPSULE PO SCH ×2 (09:56→21:13)
[2019-10-21] MEDS: METOPROLOL SUCCINATE XL 25 MG TABLET PO SCH (11:03)
[2019-10-21] MEDS ORDERED: ALBUMIN 25% 25 GM in PREMIX 1 EACH IV ONE (17:00)
[2019-10-22] MEDS: INSULIN REGULAR 100 UNIT/ML SUBCUT SCH ×4 (01:26→17:29)
[2019-10-22 05:32] LABS: Basophils % 0.1 % (0.0-0.8); Eosinophils # 0.1 10*3/uL (0.0-0.87); Eosinophils % 1.1 % (0.00-10.9); Hematocrit 23.7 VOL% (42.0-52.0); Hemoglobin 7.7 GM/DL (14.0-18.0); Immature Granulocytes % 0.2 %; Immature Granulocytes Absolute 0.02 #; Lymphocytes % 10.3 % (21.2-54.2); Mean Corpuscular HGB Conc 32.5 GM/DL (32-36); Mean Corpuscular Volume 86.2 FL (87-102); Mean Platelet Volume 10.9 FL (9.6-12.0); Monocytes % 4.8 % (1.7-12.7); NRBC # 0.02 10*3/uL; Neutrophils % 83.5 % (38.7-73.9); Platelet Count 126 T/CUMM (130-400); Red Blood Count 2.75 MC/CUMM (3.8-5.5); Red Cell Distribution Width 15.7 % (9.3-17.3); White Blood Count 9.4 T/CUMM (4-12)
[2019-10-22 05:40] LABS: INR 3.7; PT Patient Result 36.8 SECS (9.8-11.9)
[2019-10-22 05:51] LABS: Hypochromasia 1+
[2019-10-22 05:52] LABS: Microcytosis 1+; Platelet Estimate Normal
[2019-10-22 06:00] LABS: Calcium 7.1 MG/DL (8.5-10.1); Osmolality,Calculated 280.3 MOS/KG (273-304)
[2019-10-22 06:04] LABS: Albumin 1.7 G/DL (3.4-5.0); Bilirubin,Direct 0.2 MG/DL (0.0-0.20); Bilirubin,Indirect 0.5 MG/DL (0.0-1.0); Bilirubin,Total 0.7 MG/DL (0.2-1.0); Total Protein 4.4 G/DL (6.4-8.3)
[2019-10-22] MEDS: MAGNESIUM GLUCONATE 500 MG TABLET PO SCH (08:31)
[2019-10-22] MEDS: PANTOPRAZOLE 40 MG VIAL IV SCH (08:31)
[2019-10-22] MEDS: METOPROLOL SUCCINATE XL 25 MG TABLET PO SCH ×2 (08:32→20:29)
[2019-10-22] MEDS: DOCUSATE SODIUM 100 MG CAPSULE PO SCH ×2 (08:32→20:29)
[2019-10-22] MEDS: CHOLECALCIFEROL 400 UNIT TABLET PO SCH (08:32)
[2019-10-22] MEDS: ASPIRIN 325 MG TABLET PO SCH (08:33)
[2019-10-22] MEDS: TAMSULOSIN 0.4 MG CAPSULE PO SCH ×2 (08:33→20:29)
[2019-10-22] MEDS: GABAPENTIN 300 MG CAPSULE PO SCH ×2 (08:33→20:29)
[2019-10-22] MEDS: ROSUVASTATIN 10 MG TABLET PO SCH (08:33)
[2019-10-22] MEDS: ASCORBIC ACID 500 MG TABLET PO SCH (08:33)
[2019-10-22 09:34] LABS: Hematocrit 29.7 VOL% (42.0-52.0)
[2019-10-22 09:55] LABS: Hemoglobin 9.6 GM/DL (14.0-18.0)
[2019-10-22] MEDS: POTASSIUM CHLORIDE 20 MEQ TABLET PO PRN (10:29)
[2019-10-22] MEDS ORDERED: FUROSEMIDE 20 MG/2 ML VIAL IV ONE (12:30)
[2019-10-22] MEDS ORDERED: ALBUTEROL/IPRATROPIUM 3 ML NEB RESP TX SCH (15:00)
[2019-10-22 15:06] LABS: Basophils % 0.1 % (0.0-0.8); Hematocrit 32.8 VOL% (42.0-52.0); Hemoglobin 10.1 GM/DL (14.0-18.0); Immature Granulocytes % 0.6 %; Immature Granulocytes Absolute 0.06 #; Lymphocytes # 0.7 10*3/uL (1.4-4.0); Lymphocytes % 7.7 % (21.2-54.2); Mean Corpuscular HGB Conc 30.8 GM/DL (32-36); Mean Corpuscular Volume 90.4 FL (87-102); Monocytes % 5.6 % (1.7-12.7); Platelet Count 164 T/CUMM (130-400); Red Blood Count 3.63 MC/CUMM (3.8-5.5); White Blood Count 9.4 T/CUMM (4-12)
[2019-10-22 15:23] LABS: Bilirubin,Total 0.7 MG/DL (0.2-1.0); Calcium 7.5 MG/DL (8.5-10.1); Osmolality,Calculated 280.4 MOS/KG (273-304); Total Protein 5.5 G/DL (6.4-8.3)
[2019-10-22] MEDS: PIPERACILLIN/TAZOBACTAM 3,375 MG in SODIUM CHLORIDE 0.9% 100 ML IV SCH ×2 (15:30→21:43)
[2019-10-22 15:41] LABS: ABG Base Excess 3.7 MMOL/L (-2.5-2.5); ABG HCO3 27.5 MMOL/L (20-26); ABG Oxygen Saturation 89.2 % (95-100); ABG PCO2 35.2 MM HG (35-48); ABG PH 7.492 (7.35-7.45); ABG TCO2 24.5 MMOL/L (23-27)
[2019-10-22] MEDS ORDERED: FUROSEMIDE 40 MG/4 ML VIAL IV ONE (16:14)
[2019-10-22 16:27] LABS: Lymphocytes 4 % (20-55); Segmented Neutrophils 90 % (50-85); Total Cells Counted 100
[2019-10-22 16:28] LABS: Hypochromasia 1+; Microcytosis Slight; Platelet Estimate Adequate; Target Cells Few
[2019-10-23] MEDS: INSULIN REGULAR 100 UNIT/ML SUBCUT SCH ×4 (01:13→19:12)
[2019-10-23] MEDS: PIPERACILLIN/TAZOBACTAM 3,375 MG in SODIUM CHLORIDE 0.9% 100 ML IV SCH ×3 (05:17→22:12)
[2019-10-23 06:39] LABS: INR 3.9
[2019-10-23 06:40] LABS: PT Patient Result 39.2 SECS (9.8-11.9)
[2019-10-23 06:45] LABS: Eosinophils % 0.3 % (0.00-10.9); Hematocrit 29.8 VOL% (42.0-52.0); Hemoglobin 9.9 GM/DL (14.0-18.0); Immature Granulocytes % 1.7 %; Immature Granulocytes Absolute 0.11 #; Lymphocytes # 0.9 10*3/uL (1.4-4.0); Lymphocytes % 13.2 % (21.2-54.2); Mean Corpuscular HGB Conc 33.2 GM/DL (32-36); Mean Corpuscular Volume 85.1 FL (87-102); Mean Platelet Volume 11.7 FL (9.6-12.0); Monocytes % 7.7 % (1.7-12.7); Neutrophils % 77.1 % (38.7-73.9); Platelet Count 140 T/CUMM (130-400); Red Cell Distribution Width 15.9 % (9.3-17.3); White Blood Count 6.5 T/CUMM (4-12)
[2019-10-23 07:02] LABS: Albumin 1.7 G/DL (3.4-5.0); Bilirubin,Total 0.7 MG/DL (0.2-1.0); Calcium 7.4 MG/DL (8.5-10.1); Osmolality,Calculated 286.3 MOS/KG (273-304)
[2019-10-23 07:08] LABS: Band Neutrophils 3 % (0-10); Hypochromasia 2+; Lymphocytes 12 % (20-55); Ovalocytes Slight; Platelet Estimate Adequate; Segmented Neutrophils 81 % (50-85); Total Cells Counted 100
[2019-10-23 07:09] LABS: Microcytosis Slight
[2019-10-23] MEDS: POTASSIUM CHLORIDE 20 MEQ TABLET PO PRN (09:35)
[2019-10-23] MEDS: MAGNESIUM GLUCONATE 500 MG TABLET PO SCH (09:45)
[2019-10-23] MEDS: METOPROLOL SUCCINATE XL 25 MG TABLET PO SCH ×2 (09:45→20:38)
[2019-10-23] MEDS: ASCORBIC ACID 500 MG TABLET PO SCH (09:45)
[2019-10-23] MEDS: ROSUVASTATIN 10 MG TABLET PO SCH (09:45)
[2019-10-23] MEDS: PANTOPRAZOLE 40 MG VIAL IV SCH (09:45)
[2019-10-23] MEDS: GABAPENTIN 300 MG CAPSULE PO SCH ×2 (09:45→20:38)
[2019-10-23] MEDS: TAMSULOSIN 0.4 MG CAPSULE PO SCH ×2 (09:45→20:38)
[2019-10-23] MEDS: CHOLECALCIFEROL 400 UNIT TABLET PO SCH (09:45)
[2019-10-23] MEDS ORDERED: FUROSEMIDE 20 MG/2 ML VIAL IV ONE (09:47)
[2019-10-23] MEDS: DOCUSATE SODIUM 100 MG CAPSULE PO SCH ×2 (11:42→20:38)
[2019-10-24] MEDS: INSULIN REGULAR 100 UNIT/ML SUBCUT SCH ×4 (00:50→18:15)
[2019-10-24 05:45] LABS: Basophils % 0.2 % (0.0-0.8); Eosinophils % 0.5 % (0.00-10.9); Hematocrit 32.1 VOL% (42.0-52.0); Hemoglobin 10.3 GM/DL (14.0-18.0); Immature Granulocytes % 0.6 %; Immature Granulocytes Absolute 0.04 #; Lymphocytes # 1.1 10*3/uL (1.4-4.0); Lymphocytes % 16.7 % (21.2-54.2); Mean Corpuscular HGB Conc 32.1 GM/DL (32-36); Mean Corpuscular Volume 86.5 FL (87-102); Monocytes % 5.1 % (1.7-12.7); Neutrophils % 76.9 % (38.7-73.9); Platelet Count 144 T/CUMM (130-400); Red Blood Count 3.71 MC/CUMM (3.8-5.5); Red Cell Distribution Width 15.8 % (9.3-17.3); White Blood Count 6.3 T/CUMM (4-12)
[2019-10-24 05:48] LABS: INR 2.8; PT Patient Result 28.3 SECS (9.8-11.9)
[2019-10-24 06:02] LABS: Albumin 1.6 G/DL (3.4-5.0); Calcium 7.5 MG/DL (8.5-10.1); Osmolality,Calculated 287.1 MOS/KG (273-304); Total Protein 5.3 G/DL (6.4-8.3)
[2019-10-24 06:06] LABS: Band Neutrophils 4 % (0-10); Lymphocytes 14 % (20-55); Segmented Neutrophils 77 % (50-85); Total Cells Counted 100
[2019-10-24 06:07] LABS: Anisocytosis 1+; Atypical Lymphocytes Few; Hypochromasia 1+; Microcytosis 1+; Target Cells Few
[2019-10-24 06:08] LABS: Platelet Estimate Adequate
[2019-10-24] MEDS: PIPERACILLIN/TAZOBACTAM 3,375 MG in SODIUM CHLORIDE 0.9% 100 ML IV SCH ×2 (06:25→16:31)
[2019-10-24] MEDS ORDERED: POTASSIUM CHLORIDE RIDER 10 MEQ in PREMIX 1 EACH IV PRN (07:25)
[2019-10-24] MEDS ORDERED: MAGNESIUM SULF RIDER 2 GM in PREMIX 1 EACH IV PRN (07:25)
[2019-10-24] MEDS ORDERED: MAGNESIUM SULF RIDER 4 GM in PREMIX 1 EACH IV PRN (07:25)
[2019-10-24] MEDS: DOCUSATE SODIUM 100 MG CAPSULE PO SCH ×2 (08:29→21:15)
[2019-10-24] MEDS: ROSUVASTATIN 10 MG TABLET PO SCH (08:38)
[2019-10-24] MEDS: CHOLECALCIFEROL 400 UNIT TABLET PO SCH (08:38)
[2019-10-24] MEDS: ASCORBIC ACID 500 MG TABLET PO SCH (08:38)
[2019-10-24] MEDS: TAMSULOSIN 0.4 MG CAPSULE PO SCH ×2 (08:38→20:15)
[2019-10-24] MEDS: GABAPENTIN 300 MG CAPSULE PO SCH ×2 (08:38→20:15)
[2019-10-24] MEDS: MAGNESIUM GLUCONATE 500 MG TABLET PO SCH (08:38)
[2019-10-24] MEDS: METOPROLOL SUCCINATE XL 25 MG TABLET PO SCH ×2 (08:38→20:15)
[2019-10-24] MEDS: PANTOPRAZOLE 40 MG VIAL IV SCH (08:39)
[2019-10-24] MEDS ORDERED: FUROSEMIDE 40 MG/4 ML VIAL IV SCH (09:00)
[2019-10-24] MEDS: SODIUM CHLOR 0.9% KCL 40 MEQ 40 MEQ/1,000 ML BAG IV SCH ×2 (10:09→20:15)
[2019-10-24 14:19] LABS: Apearance,Urine CLEAR (Clear); Bilirubin,Urine Negative (Negative); Blood, Urine Negative (Negative); Glucose,Urine (UA) Negative (Negative); Ketones,Urine 5 mg/dL (Negative); Nitrite,Urine Negative (Negative); Protein,Urine Negative; RBC,Urine 4 /HPF (0-4); Squamous Epithelial Cell,Urine Occasional /HPF (0-10); Urine Color Yellow (Yellow); Urine Specific Gravity 1.021 (1.001-1.035); Urine Urobilinogen < 2.0 EU/DL (0.2-1.0); WBC,Urine 5 /HPF (0-6)
[2019-10-24] MEDS: ALBUTEROL INHALER 8 GM INH SCH (20:15)
[2019-10-24] MEDS: methylPREDNISolone SOD SUC 40 MG/1 ML VIAL IV SCH (20:15)
[2019-10-24] MEDS ORDERED: AZITHROMYCIN 250 MG TABLET PO ONE (21:00)
[2019-10-25] MEDS: PIPERACILLIN/TAZOBACTAM 3,375 MG in SODIUM CHLORIDE 0.9% 100 ML IV SCH ×3 (00:13→16:14)
[2019-10-25] MEDS: ALBUTEROL INHALER 8 GM INH SCH ×4 (00:13→18:15)
[2019-10-25] MEDS: INSULIN REGULAR 100 UNIT/ML SUBCUT SCH ×4 (00:15→17:51)
[2019-10-25] MEDS: FUROSEMIDE 40 MG/4 ML VIAL IV PRN (00:43)
[2019-10-25] MEDS: methylPREDNISolone SOD SUC 40 MG/1 ML VIAL IV SCH ×3 (04:30→20:50)
[2019-10-25] MEDS: SODIUM CHLOR 0.9% KCL 40 MEQ 40 MEQ/1,000 ML BAG IV SCH (05:01)
[2019-10-25 08:07] LABS: Basophils % 0.1 % (0.0-0.8); Hematocrit 28.7 VOL% (42.0-52.0); Hemoglobin 9.3 GM/DL (14.0-18.0); Immature Granulocytes % 0.4 %; Immature Granulocytes Absolute 0.03 #; Lymphocytes # 0.7 10*3/uL (1.4-4.0); Lymphocytes % 8.8 % (21.2-54.2); Mean Corpuscular HGB Conc 32.4 GM/DL (32-36); Mean Corpuscular Volume 84.9 FL (87-102); Mean Platelet Volume 11.6 FL (9.6-12.0); Monocytes % 2.2 % (1.7-12.7); Neutrophils % 88.5 % (38.7-73.9); Platelet Count 125 T/CUMM (130-400); Red Blood Count 3.38 MC/CUMM (3.8-5.5); Red Cell Distribution Width 15.9 % (9.3-17.3); White Blood Count 7.9 T/CUMM (4-12)
[2019-10-25 08:26] LABS: Band Neutrophils 3 % (0-10); Hypochromasia 1+; Lymphocytes 4 % (20-55); Segmented Neutrophils 92 % (50-85); Total Cells Counted 100
[2019-10-25 08:27] LABS: Albumin 1.5 G/DL (3.4-5.0); Bilirubin,Total 0.6 MG/DL (0.2-1.0); Calcium 7.3 MG/DL (8.5-10.1); Microcytosis 1+; Osmolality,Calculated 287.7 MOS/KG (273-304); Platelet Estimate Normal
[2019-10-25] MEDS: DOCUSATE SODIUM 100 MG CAPSULE PO SCH ×2 (09:39→20:50)
[2019-10-25] MEDS: GABAPENTIN 300 MG CAPSULE PO SCH ×2 (09:39→20:50)
[2019-10-25] MEDS: METOPROLOL SUCCINATE XL 25 MG TABLET PO SCH ×2 (09:39→20:50)
[2019-10-25] MEDS: ROSUVASTATIN 10 MG TABLET PO SCH (09:39)
[2019-10-25] MEDS: TAMSULOSIN 0.4 MG CAPSULE PO SCH ×2 (09:39→20:50)
[2019-10-25] MEDS: PANTOPRAZOLE 40 MG VIAL IV SCH (09:39)
[2019-10-25] MEDS: CHOLECALCIFEROL 400 UNIT TABLET PO SCH (09:40)
[2019-10-25] MEDS: POTASSIUM CHLORIDE 20 MEQ TABLET PO PRN ×4 (09:40→16:13)
[2019-10-25] MEDS: ASCORBIC ACID 500 MG TABLET PO SCH (09:40)
[2019-10-25] MEDS: MAGNESIUM GLUCONATE 500 MG TABLET PO SCH (09:56)
[2019-10-25] MEDS: SPIRONOLACTONE 25 MG TABLET PO SCH (14:36)
[2019-10-25] MEDS ORDERED: ALBUMIN 25% 25 GM in PREMIX 1 EACH IV ONE (17:13)
[2019-10-25] MEDS: AZITHROMYCIN 250 MG TABLET PO SCH (21:23)
[2019-10-26] MEDS: INSULIN REGULAR 100 UNIT/ML SUBCUT SCH ×4 (00:25→18:32)
[2019-10-26] MEDS: ALBUTEROL INHALER 8 GM INH SCH ×4 (00:25→18:33)
[2019-10-26] MEDS: PIPERACILLIN/TAZOBACTAM 3,375 MG in SODIUM CHLORIDE 0.9% 100 ML IV SCH ×3 (02:10→15:24)
[2019-10-26] MEDS: methylPREDNISolone SOD SUC 40 MG/1 ML VIAL IV SCH ×3 (05:35→21:17)
[2019-10-26 07:11] LABS: Basophils % 0.1 % (0.0-0.8); Eosinophils % 0.1 % (0.00-10.9); Hematocrit 27.1 VOL% (42.0-52.0); Hemoglobin 8.3 GM/DL (14.0-18.0); Immature Granulocytes % 0.5 %; Immature Granulocytes Absolute 0.05 #; Lymphocytes # 0.9 10*3/uL (1.4-4.0); Lymphocytes % 8.2 % (21.2-54.2); Mean Corpuscular HGB Conc 30.6 GM/DL (32-36); Mean Corpuscular Volume 90.6 FL (87-102); Mean Platelet Volume 11.6 FL (9.6-12.0); Monocytes % 1.6 % (1.7-12.7); Neutrophils % 89.5 % (38.7-73.9); Platelet Count 115 T/CUMM (130-400); Red Blood Count 2.99 MC/CUMM (3.8-5.5); White Blood Count 10.4 T/CUMM (4-12)
[2019-10-26 07:22] LABS: INR 2.6
[2019-10-26 07:25] LABS: PT Patient Result 26.6 SECS (9.8-11.9)
[2019-10-26] MEDS: PANTOPRAZOLE 40 MG VIAL IV SCH (08:30)
[2019-10-26] MEDS: FUROSEMIDE 40 MG/4 ML VIAL IV PRN (08:32)
[2019-10-26] MEDS: CHOLECALCIFEROL 400 UNIT TABLET PO SCH (09:42)
[2019-10-26] MEDS: MAGNESIUM GLUCONATE 500 MG TABLET PO SCH (09:43)
[2019-10-26] MEDS: TAMSULOSIN 0.4 MG CAPSULE PO SCH ×2 (09:43→21:16)
[2019-10-26] MEDS: GABAPENTIN 300 MG CAPSULE PO SCH ×2 (09:43→21:17)
[2019-10-26] MEDS: ROSUVASTATIN 10 MG TABLET PO SCH (09:43)
[2019-10-26] MEDS: ASCORBIC ACID 500 MG TABLET PO SCH (09:43)
[2019-10-26] MEDS: DOCUSATE SODIUM 100 MG CAPSULE PO SCH (09:44)
[2019-10-26] MEDS: SPIRONOLACTONE 25 MG TABLET PO SCH (09:44)
[2019-10-26] MEDS: METOPROLOL SUCCINATE XL 25 MG TABLET PO SCH ×2 (09:44→21:17)
[2019-10-26] MEDS ORDERED: DOCUSATE SODIUM 100 MG CAPSULE PO PRN (18:34)
[2019-10-26] MEDS: AZITHROMYCIN 250 MG TABLET PO SCH (21:17)
[2019-10-27] MEDS: ALBUTEROL INHALER 8 GM INH SCH ×4 (00:30→19:36)
[2019-10-27] MEDS: INSULIN REGULAR 100 UNIT/ML SUBCUT SCH ×4 (00:30→18:58)
[2019-10-27] MEDS: PIPERACILLIN/TAZOBACTAM 3,375 MG in SODIUM CHLORIDE 0.9% 100 ML IV SCH ×3 (00:32→16:31)
[2019-10-27 05:06] LABS: Basophils % 0.1 % (0.0-0.8); Hematocrit 24.8 VOL% (42.0-52.0); Hemoglobin 7.9 GM/DL (14.0-18.0); Immature Granulocytes % 0.8 %; Immature Granulocytes Absolute 0.12 #; Lymphocytes # 0.6 10*3/uL (1.4-4.0); Lymphocytes % 4.5 % (21.2-54.2); Mean Corpuscular HGB Conc 31.9 GM/DL (32-36); Mean Corpuscular Volume 87.9 FL (87-102); Mean Platelet Volume 11.6 FL (9.6-12.0); Monocytes % 1.3 % (1.7-12.7); Neutrophils % 93.3 % (38.7-73.9); Platelet Count 116 T/CUMM (130-400); Red Blood Count 2.82 MC/CUMM (3.8-5.5); Red Cell Distribution Width 15.9 % (9.3-17.3); White Blood Count 14.2 T/CUMM (4-12)
[2019-10-27 05:18] LABS: Albumin 1.5 G/DL (3.4-5.0); Bilirubin,Total 0.4 MG/DL (0.2-1.0); Calcium 7.5 MG/DL (8.5-10.1); Total Protein 4.8 G/DL (6.4-8.3)
[2019-10-27] MEDS: methylPREDNISolone SOD SUC 40 MG/1 ML VIAL IV SCH ×3 (05:55→20:39)
[2019-10-27] MEDS: POTASSIUM CHLORIDE 20 MEQ TABLET PO PRN ×4 (05:56→16:32)
[2019-10-27 08:19] LABS: Hypochromasia 2+; Lymphocytes 2 % (20-55); Platelet Estimate Decreased; Segmented Neutrophils 95 % (50-85); Total Cells Counted 100
[2019-10-27] MEDS: PANTOPRAZOLE 40 MG VIAL IV SCH (09:02)
[2019-10-27] MEDS: GABAPENTIN 300 MG CAPSULE PO SCH ×2 (09:04→20:39)
[2019-10-27] MEDS: FUROSEMIDE 40 MG TABLET PO SCH (09:05)
[2019-10-27] MEDS: ROSUVASTATIN 10 MG TABLET PO SCH (09:05)
[2019-10-27] MEDS: TAMSULOSIN 0.4 MG CAPSULE PO SCH ×2 (09:05→20:39)
[2019-10-27] MEDS: CHOLECALCIFEROL 400 UNIT TABLET PO SCH (09:05)
[2019-10-27] MEDS: MAGNESIUM GLUCONATE 500 MG TABLET PO SCH (09:05)
[2019-10-27] MEDS: ASCORBIC ACID 500 MG TABLET PO SCH (09:05)
[2019-10-27] MEDS: METOPROLOL SUCCINATE XL 25 MG TABLET PO SCH ×2 (09:06→20:39)
[2019-10-27] MEDS: SPIRONOLACTONE 25 MG TABLET PO SCH (09:06)
[2019-10-27] MEDS ORDERED: LOPERAMIDE 2 MG CAPSULE PO PRN (13:28)
[2019-10-27] MEDS: AZITHROMYCIN 250 MG TABLET PO SCH (20:39)
[2019-10-28] MEDS: PIPERACILLIN/TAZOBACTAM 3,375 MG in SODIUM CHLORIDE 0.9% 100 ML IV SCH ×3 (00:14→15:42)
[2019-10-28] MEDS: ALBUTEROL INHALER 8 GM INH SCH ×4 (00:15→18:06)
[2019-10-28] MEDS: INSULIN REGULAR 100 UNIT/ML SUBCUT SCH ×4 (00:47→18:06)
[2019-10-28 05:39] LABS: Basophils % 0.1 % (0.0-0.8); Hematocrit 27.4 VOL% (42.0-52.0); Hemoglobin 8.8 GM/DL (14.0-18.0); Immature Granulocytes % 0.9 %; Lymphocytes # 0.6 10*3/uL (1.4-4.0); Mean Corpuscular HGB Conc 32.1 GM/DL (32-36); Mean Corpuscular Volume 87.5 FL (87-102); Mean Platelet Volume 10.7 FL (9.6-12.0); Monocytes % 1.4 % (1.7-12.7); Neutrophils % 92.6 % (38.7-73.9); Platelet Count 111 T/CUMM (130-400); Red Blood Count 3.13 MC/CUMM (3.8-5.5); Red Cell Distribution Width 15.9 % (9.3-17.3); White Blood Count 11.8 T/CUMM (4-12)
[2019-10-28] MEDS: methylPREDNISolone SOD SUC 40 MG/1 ML VIAL IV SCH ×2 (05:55→12:06)
[2019-10-28 05:56] LABS: Alanine Aminotransferase 50 U/L (16-61); Albumin 1.6 G/DL (3.4-5.0); Alkaline Phosphatase 113 U/L (45-117); Aspartate Amino Transferase 57 U/L (0-37); Bilirubin,Total < 0.39 MG/DL (0.2-1.0); Blood Urea Nitrogen 22 MG/DL (7-18); Calcium 7.9 MG/DL (8.5-10.1); Estimated Glom Filtration Rate 85 ML/MIN; Glucose 218 MG/DL (74-106); Osmolality,Calculated 288.4 MOS/KG (273-304); Total Protein 5.5 G/DL (6.4-8.3)
[2019-10-28 06:08] LABS: Anisocytosis 1+; Band Neutrophils 7 % (0-10); Lymphocytes 3 % (20-55); Macrocytosis Slight; Platelet Estimate Adequate; Segmented Neutrophils 90 % (50-85); Target Cells Few; Total Cells Counted 100
[2019-10-28] MEDS: POTASSIUM CHLORIDE 20 MEQ TABLET PO PRN (06:20)
[2019-10-28] MEDS: PANTOPRAZOLE 40 MG VIAL IV SCH (08:01)
[2019-10-28] MEDS: METOPROLOL SUCCINATE XL 25 MG TABLET PO SCH (08:02)
[2019-10-28] MEDS: ROSUVASTATIN 10 MG TABLET PO SCH (08:02)
[2019-10-28] MEDS: GABAPENTIN 300 MG CAPSULE PO SCH ×2 (08:02→21:22)
[2019-10-28] MEDS: FUROSEMIDE 40 MG TABLET PO SCH (08:02)
[2019-10-28] MEDS: SPIRONOLACTONE 25 MG TABLET PO SCH (08:02)
[2019-10-28] MEDS: TAMSULOSIN 0.4 MG CAPSULE PO SCH ×2 (08:02→21:23)
[2019-10-28] MEDS: MAGNESIUM GLUCONATE 500 MG TABLET PO SCH (08:02)
[2019-10-28] MEDS: ASCORBIC ACID 500 MG TABLET PO SCH (08:04)
[2019-10-28] MEDS: CHOLECALCIFEROL 400 UNIT TABLET PO SCH (08:05)
[2019-10-28] MEDS ORDERED: POTASSIUM CHLORIDE 20 MEQ TABLET PO ONE (09:17)
[2019-10-28 10:55] LABS: PT Patient Result 20.8 SECS (9.8-11.9)
[2019-10-28] MEDS: ENOXAPARIN 40 MG/0.4 ML SYRINGE SUBCUT SCH (12:06)
[2019-10-28] MEDS: traMADol 50 MG TABLET PO PRN (13:05)
[2019-10-28] MEDS ORDERED: methylPREDNISolone SOD SUC 40 MG/1 ML VIAL IV SCH (14:30)
[2019-10-28] MEDS: methylPREDNISolone SOD SUC 125 MG/2 ML VIAL IV SCH ×2 (14:33→21:34)
[2019-10-28] MEDS: AZITHROMYCIN 250 MG TABLET PO SCH (21:22)
[2019-10-29] MEDS: INSULIN REGULAR 100 UNIT/ML SUBCUT SCH ×4 (00:53→17:31)
[2019-10-29] MEDS: PIPERACILLIN/TAZOBACTAM 3,375 MG in SODIUM CHLORIDE 0.9% 100 ML IV SCH ×3 (00:54→16:48)
[2019-10-29 03:48] LABS: Hematocrit 27.1 VOL% (42.0-52.0); Hemoglobin 8.4 GM/DL (14.0-18.0); Immature Granulocytes % 0.6 %; Immature Granulocytes Absolute 0.05 #; Lymphocytes # 0.4 10*3/uL (1.4-4.0); Lymphocytes % 5.4 % (21.2-54.2); Mean Corpuscular Volume 89.1 FL (87-102); Mean Platelet Volume 11.8 FL (9.6-12.0); Monocytes % 1.2 % (1.7-12.7); Neutrophils % 92.8 % (38.7-73.9); Red Blood Count 3.04 MC/CUMM (3.8-5.5); Red Cell Distribution Width 16.1 % (9.3-17.3); White Blood Count 7.8 T/CUMM (4-12)
[2019-10-29 04:02] LABS: Calcium 7.9 MG/DL (8.5-10.1); Osmolality,Calculated 289.1 MOS/KG (273-304)
[2019-10-29 04:06] LABS: Albumin 1.5 G/DL (3.4-5.0); Bilirubin,Total 0.5 MG/DL (0.2-1.0); Calcium 7.6 MG/DL (8.5-10.1); Total Protein 5.2 G/DL (6.4-8.3)
[2019-10-29 04:18] LABS: Platelet Count 89 T/CUMM (130-400)
[2019-10-29 04:23] LABS: Hypochromasia 1+; Lymphocytes 4 % (20-55); Ovalocytes Slight; Platelet Estimate Decreased; Segmented Neutrophils 96 % (50-85); Total Cells Counted 100
[2019-10-29 04:27] LABS: INR 1.6; PT Patient Result 16.8 SECS (9.8-11.9)
[2019-10-29] MEDS: ALBUTEROL INHALER 8 GM INH SCH ×4 (04:46→20:18)
[2019-10-29] MEDS: traMADol 50 MG TABLET PO PRN (06:20)
[2019-10-29] MEDS: methylPREDNISolone SOD SUC 125 MG/2 ML VIAL IV SCH ×3 (06:44→23:38)
[2019-10-29] MEDS: PANTOPRAZOLE 40 MG VIAL IV SCH (08:09)
[2019-10-29] MEDS: GABAPENTIN 300 MG CAPSULE PO SCH ×2 (08:10→20:19)
[2019-10-29] MEDS: SPIRONOLACTONE 25 MG TABLET PO SCH (08:10)
[2019-10-29] MEDS: ASCORBIC ACID 500 MG TABLET PO SCH (08:10)
[2019-10-29] MEDS: FUROSEMIDE 40 MG TABLET PO SCH (08:10)
[2019-10-29] MEDS: CHOLECALCIFEROL 400 UNIT TABLET PO SCH (08:11)
[2019-10-29] MEDS: METOPROLOL SUCCINATE XL 25 MG TABLET PO SCH (08:11)
[2019-10-29] MEDS: ROSUVASTATIN 10 MG TABLET PO SCH (08:11)
[2019-10-29] MEDS: MAGNESIUM GLUCONATE 500 MG TABLET PO SCH (08:11)
[2019-10-29] MEDS: TAMSULOSIN 0.4 MG CAPSULE PO SCH ×2 (08:11→20:19)
[2019-10-29] MEDS: ENOXAPARIN 40 MG/0.4 ML SYRINGE SUBCUT SCH (12:01)
[2019-10-29] MEDS ORDERED: ALBUMIN 25% 12.5 GM in PREMIX 1 EACH IV ONE (15:50)
[2019-10-29] MEDS: APIXABAN 2.5 MG TABLET PO SCH (20:19)
[2019-10-29] MEDS: ACETAMINOPHEN 325 MG TABLET PO PRN (20:20)
[2019-10-30] MEDS: INSULIN REGULAR 100 UNIT/ML SUBCUT SCH ×5 (00:44→23:49)
[2019-10-30] MEDS: traMADol 50 MG TABLET PO PRN (00:55)
[2019-10-30] MEDS: PIPERACILLIN/TAZOBACTAM 3,375 MG in SODIUM CHLORIDE 0.9% 100 ML IV SCH ×3 (01:05→17:15)
[2019-10-30] MEDS: ALBUTEROL INHALER 8 GM INH SCH ×4 (01:06→18:31)
[2019-10-30 04:46] LABS: Hematocrit 25.1 VOL% (42.0-52.0); Immature Granulocytes % 0.4 %; Immature Granulocytes Absolute 0.03 #; Lymphocytes # 0.4 10*3/uL (1.4-4.0); Lymphocytes % 5.7 % (21.2-54.2); Mean Corpuscular HGB Conc 31.9 GM/DL (32-36); Mean Corpuscular Volume 86.9 FL (87-102); Mean Platelet Volume 12.4 FL (9.6-12.0); Monocytes % 1.7 % (1.7-12.7); Neutrophils % 92.2 % (38.7-73.9); Platelet Count 110 T/CUMM (130-400); Red Blood Count 2.89 MC/CUMM (3.8-5.5); Red Cell Distribution Width 15.9 % (9.3-17.3); White Blood Count 6.9 T/CUMM (4-12)
[2019-10-30 05:05] LABS: Calcium 8.1 MG/DL (8.5-10.1)
[2019-10-30 05:08] LABS: INR 1.6; PT Patient Result 16.5 SECS (9.8-11.9)
[2019-10-30 05:10] LABS: Hypochromasia 1+; Lymphocytes 6 % (20-55); Ovalocytes Slight; Platelet Estimate Decreased; Segmented Neutrophils 93 % (50-85); Total Cells Counted 100
[2019-10-30] MEDS: methylPREDNISolone SOD SUC 125 MG/2 ML VIAL IV SCH ×3 (06:15→22:46)
[2019-10-30] MEDS: SPIRONOLACTONE 25 MG TABLET PO SCH (09:57)
[2019-10-30] MEDS: ROSUVASTATIN 10 MG TABLET PO SCH (09:57)
[2019-10-30] MEDS: APIXABAN 2.5 MG TABLET PO SCH ×2 (09:57→20:59)
[2019-10-30] MEDS: ASCORBIC ACID 500 MG TABLET PO SCH (09:58)
[2019-10-30] MEDS: GABAPENTIN 300 MG CAPSULE PO SCH ×2 (09:58→21:00)
[2019-10-30] MEDS: CHOLECALCIFEROL 400 UNIT TABLET PO SCH (09:58)
[2019-10-30] MEDS: FUROSEMIDE 40 MG TABLET PO SCH (09:58)
[2019-10-30] MEDS: TAMSULOSIN 0.4 MG CAPSULE PO SCH ×2 (09:58→21:00)
[2019-10-30] MEDS: PANTOPRAZOLE 40 MG VIAL IV SCH (09:58)
[2019-10-30] MEDS: MAGNESIUM GLUCONATE 500 MG TABLET PO SCH (09:58)
[2019-10-30] MEDS: METOPROLOL SUCCINATE XL 25 MG TABLET PO SCH (09:58)
[2019-10-30] MEDS ORDERED: SPIRONOLACTONE 25 MG TABLET PO ONE (10:08)
[2019-10-30 11:08] LABS: ABG Base Excess 1.8 MMOL/L (-2.5-2.5); ABG HCO3 25.9 MMOL/L (20-26); ABG Oxygen Saturation 87.7 % (95-100); ABG PCO2 32.8 MM HG (35-48); ABG PH 7.488 (7.35-7.45); ABG TCO2 23.1 MMOL/L (23-27); Pt O2 Delivery Device Venturi Mask
[2019-10-30] MEDS: POTASSIUM CHLORIDE 20 MEQ TABLET PO PRN ×5 (12:44→23:52)
[2019-10-30] MEDS: NEOMYCIN/POLYMYXIN/BACITRACIN OINT 28.4 GM TUBE TOP SCH (16:32)
[2019-10-30] MEDS: SILVER SULFADIAZINE 1% CREAM 400 GM JAR TOP SCH (16:32)
[2019-10-31] MEDS: PIPERACILLIN/TAZOBACTAM 3,375 MG in SODIUM CHLORIDE 0.9% 100 ML IV SCH ×4 (00:06→23:47)
[2019-10-31] MEDS: ALBUTEROL INHALER 8 GM INH SCH ×4 (01:40→18:28)
[2019-10-31] MEDS: POTASSIUM CHLORIDE 20 MEQ TABLET PO PRN ×4 (02:00→13:54)
[2019-10-31] MEDS: INSULIN REGULAR 100 UNIT/ML SUBCUT SCH ×4 (06:17→23:46)
[2019-10-31] MEDS: methylPREDNISolone SOD SUC 125 MG/2 ML VIAL IV SCH ×3 (06:17→22:15)
[2019-10-31] MEDS: GABAPENTIN 300 MG CAPSULE PO SCH ×2 (08:55→21:16)
[2019-10-31] MEDS: APIXABAN 2.5 MG TABLET PO SCH ×2 (08:56→21:16)
[2019-10-31] MEDS: ASCORBIC ACID 500 MG TABLET PO SCH (08:56)
[2019-10-31] MEDS: ROSUVASTATIN 10 MG TABLET PO SCH (08:56)
[2019-10-31] MEDS: CHOLECALCIFEROL 400 UNIT TABLET PO SCH (08:57)
[2019-10-31] MEDS: FUROSEMIDE 40 MG TABLET PO SCH (08:58)
[2019-10-31] MEDS: SPIRONOLACTONE 25 MG TABLET PO SCH (08:58)
[2019-10-31] MEDS: METOPROLOL SUCCINATE XL 25 MG TABLET PO SCH (08:58)
[2019-10-31] MEDS: MAGNESIUM GLUCONATE 500 MG TABLET PO SCH (08:58)
[2019-10-31] MEDS: TAMSULOSIN 0.4 MG CAPSULE PO SCH ×2 (08:58→21:16)
[2019-10-31] MEDS: PANTOPRAZOLE 40 MG VIAL IV SCH (09:00)
[2019-10-31] MEDS: traMADol 50 MG TABLET PO PRN (09:23)
[2019-10-31] MEDS: NEOMYCIN/POLYMYXIN/BACITRACIN OINT 28.4 GM TUBE TOP SCH (10:20)
[2019-10-31] MEDS: SILVER SULFADIAZINE 1% CREAM 400 GM JAR TOP SCH (10:20)
[2019-10-31] MEDS ORDERED: ALBUTEROL/IPRATROPIUM 3 ML NEB RESP TX ONE (13:48)
[2019-10-31] MEDS ORDERED: ALBUTEROL/IPRATROPIUM 3 ML NEB RESP TX PRN (13:48)
[2019-11-01] MEDS: ALBUTEROL INHALER 8 GM INH SCH ×4 (01:46→20:13)
[2019-11-01 04:25] LABS: Hematocrit 25.1 VOL% (42.0-52.0); Hemoglobin 7.9 GM/DL (14.0-18.0); Immature Granulocytes % 1.1 %; Immature Granulocytes Absolute 0.08 #; Lymphocytes # 0.3 10*3/uL (1.4-4.0); Lymphocytes % 3.6 % (21.2-54.2); Mean Corpuscular HGB Conc 31.5 GM/DL (32-36); Mean Corpuscular Volume 88.1 FL (87-102); Mean Platelet Volume 12.4 FL (9.6-12.0); Monocytes % 2.1 % (1.7-12.7); NRBC # 0.03 10*3/uL; Neutrophils % 93.2 % (38.7-73.9); Platelet Count 127 T/CUMM (130-400); Red Blood Count 2.85 MC/CUMM (3.8-5.5); Red Cell Distribution Width 15.9 % (9.3-17.3); White Blood Count 7.5 T/CUMM (4-12)
[2019-11-01 04:53] LABS: Alanine Aminotransferase 400 U/L (16-61); Albumin 1.9 G/DL (3.4-5.0); Alkaline Phosphatase 142 U/L (45-117); Aspartate Amino Transferase 227 U/L (0-37); Bilirubin,Total < 0.39 MG/DL (0.2-1.0); Blood Urea Nitrogen 19 MG/DL (7-18); Calcium 7.8 MG/DL (8.5-10.1); Estimated Glom Filtration Rate 86 ML/MIN; Glucose 191 MG/DL (74-106); Total Protein 5.4 G/DL (6.4-8.3)
[2019-11-01 05:04] LABS: Lymphocytes 7 % (20-55); Nucleated Red Blood Cells 2 (0-5); Segmented Neutrophils 91 % (50-85); Total Cells Counted 100
[2019-11-01 05:05] LABS: Anisocytosis 1+; Hypochromasia 1+; Platelet Estimate Normal; Target Cells 1+
[2019-11-01] MEDS: INSULIN REGULAR 100 UNIT/ML SUBCUT SCH ×4 (05:52→23:51)
[2019-11-01] MEDS: POTASSIUM CHLORIDE 20 MEQ TABLET PO PRN ×3 (06:30→10:58)
[2019-11-01] MEDS: methylPREDNISolone SOD SUC 125 MG/2 ML VIAL IV SCH ×3 (06:30→22:54)
[2019-11-01] MEDS: PIPERACILLIN/TAZOBACTAM 3,375 MG in SODIUM CHLORIDE 0.9% 100 ML IV SCH ×2 (08:15→18:07)
[2019-11-01] MEDS: PANTOPRAZOLE 40 MG VIAL IV SCH (08:46)
[2019-11-01] MEDS: CHOLECALCIFEROL 400 UNIT TABLET PO SCH (08:47)
[2019-11-01] MEDS: FUROSEMIDE 40 MG TABLET PO SCH (08:47)
[2019-11-01] MEDS: ROSUVASTATIN 10 MG TABLET PO SCH (08:47)
[2019-11-01] MEDS: TAMSULOSIN 0.4 MG CAPSULE PO SCH ×2 (08:47→20:54)
[2019-11-01] MEDS: APIXABAN 2.5 MG TABLET PO SCH ×2 (08:47→20:57)
[2019-11-01] MEDS: GABAPENTIN 300 MG CAPSULE PO SCH ×2 (08:47→20:54)
[2019-11-01] MEDS: MAGNESIUM GLUCONATE 500 MG TABLET PO SCH (08:47)
[2019-11-01] MEDS: METOPROLOL SUCCINATE XL 25 MG TABLET PO SCH (08:47)
[2019-11-01] MEDS: ASCORBIC ACID 500 MG TABLET PO SCH (08:48)
[2019-11-01] MEDS: SPIRONOLACTONE 25 MG TABLET PO SCH (08:48)
[2019-11-01] MEDS: SILVER SULFADIAZINE 1% CREAM 400 GM JAR TOP SCH (09:35)
[2019-11-01] MEDS: NEOMYCIN/POLYMYXIN/BACITRACIN OINT 28.4 GM TUBE TOP SCH (09:35)
[2019-11-01] MEDS: traMADol 50 MG TABLET PO PRN (09:58)
[2019-11-01] MEDS ORDERED: SODIUM CHLORIDE 0.9% 1,000 ML IV PRN (13:50)
[2019-11-02] MEDS: PIPERACILLIN/TAZOBACTAM 3,375 MG in SODIUM CHLORIDE 0.9% 100 ML IV SCH ×3 (01:33→15:45)
[2019-11-02] MEDS: ALBUTEROL INHALER 8 GM INH SCH ×2 (05:34→07:26)
[2019-11-02] MEDS: INSULIN REGULAR 100 UNIT/ML SUBCUT SCH ×4 (05:49→23:56)
[2019-11-02 06:11] LABS: Basophils % 0.1 % (0.0-0.8); Hemoglobin 9.4 GM/DL (14.0-18.0); Immature Granulocytes % 0.5 %; Immature Granulocytes Absolute 0.05 #; Lymphocytes # 0.3 10*3/uL (1.4-4.0); Lymphocytes % 2.4 % (21.2-54.2); Mean Corpuscular HGB Conc 32.4 GM/DL (32-36); Mean Corpuscular Volume 86.1 FL (87-102); Monocytes % 2.4 % (1.7-12.7); NRBC # 0.04 10*3/uL; Neutrophils % 94.6 % (38.7-73.9); Platelet Count 125 T/CUMM (130-400); Red Blood Count 3.37 MC/CUMM (3.8-5.5); Red Cell Distribution Width 15.7 % (9.3-17.3); White Blood Count 10.6 T/CUMM (4-12)
[2019-11-02] MEDS: methylPREDNISolone SOD SUC 125 MG/2 ML VIAL IV SCH ×3 (06:18→22:08)
[2019-11-02 07:15] LABS: Calcium 7.9 MG/DL (8.5-10.1); Osmolality,Calculated 288.8 MOS/KG (273-304)
[2019-11-02 07:17] LABS: Albumin 1.9 G/DL (3.4-5.0); Bilirubin,Direct 0.15 MG/DL (0.0-0.20); Bilirubin,Indirect 0.4 MG/DL (0.0-1.0); Bilirubin,Total 0.5 MG/DL (0.2-1.0); Total Protein 5.3 G/DL (6.4-8.3)
[2019-11-02] MEDS: POTASSIUM CHLORIDE 20 MEQ TABLET PO PRN ×3 (07:50→12:28)
[2019-11-02 08:06] LABS: Hepatitis B Core IgM Quant 0.14 Index; Hepatitis B Surface Ag Quant 0.28 Index; Hepatitis B Surface Ag Result Negative (Negative); Hepatitis C Virus Ab Quant 0.17 Index; Hepatitis C Virus Ab Result Negative (Negative)
[2019-11-02] MEDS: SPIRONOLACTONE 25 MG TABLET PO SCH (08:50)
[2019-11-02] MEDS: APIXABAN 2.5 MG TABLET PO SCH ×2 (08:51→20:57)
[2019-11-02] MEDS: ROSUVASTATIN 10 MG TABLET PO SCH (08:51)
[2019-11-02 08:52] LABS: Lymphocytes 3 % (20-55); Platelet Estimate Adequate; Polychromasia Slight; Segmented Neutrophils 96 % (50-85); Total Cells Counted 100
[2019-11-02] MEDS: TAMSULOSIN 0.4 MG CAPSULE PO SCH ×2 (08:52→20:57)
[2019-11-02] MEDS: MAGNESIUM GLUCONATE 500 MG TABLET PO SCH (08:52)
[2019-11-02] MEDS: METOPROLOL SUCCINATE XL 25 MG TABLET PO SCH (08:54)
[2019-11-02] MEDS: ASCORBIC ACID 500 MG TABLET PO SCH (08:54)
[2019-11-02] MEDS: PANTOPRAZOLE 40 MG VIAL IV SCH (08:54)
[2019-11-02] MEDS: GABAPENTIN 300 MG CAPSULE PO SCH ×2 (08:55→20:57)
[2019-11-02] MEDS: CHOLECALCIFEROL 400 UNIT TABLET PO SCH (08:55)
[2019-11-02] MEDS: FUROSEMIDE 40 MG TABLET PO SCH (08:56)
[2019-11-02] MEDS: SILVER SULFADIAZINE 1% CREAM 400 GM JAR TOP SCH (11:51)
[2019-11-02] MEDS: NEOMYCIN/POLYMYXIN/BACITRACIN OINT 28.4 GM TUBE TOP SCH (11:51)
[2019-11-02] MEDS: ALBUTEROL/IPRATROPIUM 3 ML NEB RESP TX SCH ×2 (14:30→19:52)
[2019-11-03] MEDS: PIPERACILLIN/TAZOBACTAM 3,375 MG in SODIUM CHLORIDE 0.9% 100 ML IV SCH ×3 (00:01→16:50)
[2019-11-03 05:51] LABS: Basophils % 0.1 % (0.0-0.8); Hematocrit 29.5 VOL% (42.0-52.0); Hemoglobin 9.5 GM/DL (14.0-18.0); Immature Granulocytes % 0.7 %; Immature Granulocytes Absolute 0.07 #; Lymphocytes # 0.2 10*3/uL (1.4-4.0); Lymphocytes % 2.4 % (21.2-54.2); Mean Corpuscular HGB Conc 32.2 GM/DL (32-36); Mean Corpuscular Volume 86.3 FL (87-102); Mean Platelet Volume 11.5 FL (9.6-12.0); Monocytes % 3.3 % (1.7-12.7); NRBC # 0.02 10*3/uL; Neutrophils % 93.5 % (38.7-73.9); Platelet Count 148 T/CUMM (130-400); Red Blood Count 3.42 MC/CUMM (3.8-5.5); Red Cell Distribution Width 15.2 % (9.3-17.3); White Blood Count 10.2 T/CUMM (4-12)
[2019-11-03] MEDS: methylPREDNISolone SOD SUC 125 MG/2 ML VIAL IV SCH ×3 (06:05→22:17)
[2019-11-03] MEDS: INSULIN REGULAR 100 UNIT/ML SUBCUT SCH ×3 (06:38→18:28)
[2019-11-03] MEDS: ALBUTEROL/IPRATROPIUM 3 ML NEB RESP TX SCH ×3 (07:33→19:25)
[2019-11-03 08:03] LABS: Band Neutrophils 1 % (0-10); Hypochromasia 3+; Lymphocytes 1 % (20-55); Nucleated Red Blood Cells 1 (0-5); Polychromasia Few; Segmented Neutrophils 94 % (50-85); Target Cells Few; Total Cells Counted 100
[2019-11-03 08:04] LABS: Microcytosis 1+; Platelet Estimate Adequate; Spherocytes Few
[2019-11-03] MEDS: ASCORBIC ACID 500 MG TABLET PO SCH (09:39)
[2019-11-03] MEDS: TAMSULOSIN 0.4 MG CAPSULE PO SCH ×2 (09:41→20:50)
[2019-11-03] MEDS: GABAPENTIN 300 MG CAPSULE PO SCH ×2 (09:41→20:50)
[2019-11-03] MEDS: MAGNESIUM GLUCONATE 500 MG TABLET PO SCH (09:41)
[2019-11-03] MEDS: ROSUVASTATIN 10 MG TABLET PO SCH (09:41)
[2019-11-03] MEDS: SPIRONOLACTONE 25 MG TABLET PO SCH (09:42)
[2019-11-03] MEDS: FUROSEMIDE 40 MG TABLET PO SCH (09:42)
[2019-11-03] MEDS: CHOLECALCIFEROL 400 UNIT TABLET PO SCH (09:42)
[2019-11-03] MEDS: APIXABAN 2.5 MG TABLET PO SCH ×2 (09:42→20:50)
[2019-11-03] MEDS: METOPROLOL SUCCINATE XL 25 MG TABLET PO SCH (09:42)
[2019-11-03] MEDS: PANTOPRAZOLE 40 MG VIAL IV SCH (09:43)
[2019-11-03] MEDS: SILVER SULFADIAZINE 1% CREAM 400 GM JAR TOP SCH (10:50)
[2019-11-03] MEDS: NEOMYCIN/POLYMYXIN/BACITRACIN OINT 28.4 GM TUBE TOP SCH (10:50)
[2019-11-03 12:27] LABS: Albumin 1.9 G/DL (3.4-5.0); Bilirubin,Total 0.4 MG/DL (0.2-1.0); Calcium 7.7 MG/DL (8.5-10.1); Total Protein 5.2 G/DL (6.4-8.3)
[2019-11-03 12:28] LABS: Osmolality,Calculated 283.3 MOS/KG (273-304)
[2019-11-03] MEDS: POTASSIUM CHLORIDE 20 MEQ TABLET PO PRN (20:50)
[2019-11-04] MEDS: INSULIN REGULAR 100 UNIT/ML SUBCUT SCH ×6 (00:52→23:40)
[2019-11-04] MEDS: PIPERACILLIN/TAZOBACTAM 3,375 MG in SODIUM CHLORIDE 0.9% 100 ML IV SCH ×4 (00:53→23:41)
[2019-11-04] MEDS: POTASSIUM CHLORIDE 20 MEQ TABLET PO PRN ×3 (01:20→07:19)
[2019-11-04] MEDS: methylPREDNISolone SOD SUC 125 MG/2 ML VIAL IV SCH ×3 (06:10→22:10)
[2019-11-04] MEDS: ALBUTEROL/IPRATROPIUM 3 ML NEB RESP TX SCH ×3 (07:26→20:48)
[2019-11-04 07:43] LABS: Hematocrit 27.3 VOL% (42.0-52.0); Hemoglobin 8.8 GM/DL (14.0-18.0); Immature Granulocytes % 0.4 %; Immature Granulocytes Absolute 0.04 #; Lymphocytes # 0.3 10*3/uL (1.4-4.0); Mean Corpuscular HGB Conc 32.2 GM/DL (32-36); Mean Corpuscular Volume 86.1 FL (87-102); Monocytes % 4.6 % (1.7-12.7); Platelet Count 144 T/CUMM (130-400); Red Blood Count 3.17 MC/CUMM (3.8-5.5); Red Cell Distribution Width 15.6 % (9.3-17.3); White Blood Count 9.4 T/CUMM (4-12)
[2019-11-04 07:53] LABS: Calcium 7.7 MG/DL (8.5-10.1); Osmolality,Calculated 285.1 MOS/KG (273-304)
[2019-11-04 08:11] LABS: Lymphocytes 2 % (20-55); Platelet Estimate Adequate; Segmented Neutrophils 92 % (50-85); Total Cells Counted 100
[2019-11-04 08:12] LABS: Hypochromasia 1+; Microcytosis Slight
[2019-11-04] MEDS: GABAPENTIN 300 MG CAPSULE PO SCH ×2 (08:22→22:05)
[2019-11-04] MEDS: FUROSEMIDE 40 MG TABLET PO SCH (08:22)
[2019-11-04] MEDS: ASCORBIC ACID 500 MG TABLET PO SCH (08:22)
[2019-11-04] MEDS: APIXABAN 2.5 MG TABLET PO SCH ×2 (08:22→22:05)
[2019-11-04] MEDS: TAMSULOSIN 0.4 MG CAPSULE PO SCH ×2 (08:22→22:05)
[2019-11-04] MEDS: CHOLECALCIFEROL 400 UNIT TABLET PO SCH (08:22)
[2019-11-04] MEDS: METOPROLOL SUCCINATE XL 25 MG TABLET PO SCH (08:22)
[2019-11-04] MEDS: SPIRONOLACTONE 25 MG TABLET PO SCH (08:22)
[2019-11-04] MEDS: ROSUVASTATIN 10 MG TABLET PO SCH (08:22)
[2019-11-04] MEDS: PANTOPRAZOLE 40 MG VIAL IV SCH (08:23)
[2019-11-04] MEDS: SILVER SULFADIAZINE 1% CREAM 400 GM JAR TOP SCH (08:23)
[2019-11-04] MEDS: NEOMYCIN/POLYMYXIN/BACITRACIN OINT 28.4 GM TUBE TOP SCH (08:26)
[2019-11-04] MEDS: MAGNESIUM GLUCONATE 500 MG TABLET PO SCH (08:26)
[2019-11-05] MEDS: INSULIN REGULAR 100 UNIT/ML SUBCUT SCH ×4 (05:32→21:06)
[2019-11-05] MEDS: methylPREDNISolone SOD SUC 125 MG/2 ML VIAL IV SCH (05:33)
[2019-11-05 06:21] LABS: Albumin 1.7 G/DL (3.4-5.0); Bilirubin,Direct 0.19 MG/DL (0.0-0.20); Bilirubin,Indirect 0.3 MG/DL (0.0-1.0); Bilirubin,Total 0.5 MG/DL (0.2-1.0); Total Protein 4.8 G/DL (6.4-8.3)
[2019-11-05] MEDS: ALBUTEROL/IPRATROPIUM 3 ML NEB RESP TX SCH ×3 (07:54→19:29)
[2019-11-05] MEDS: PANTOPRAZOLE 40 MG VIAL IV SCH (09:38)
[2019-11-05] MEDS: FUROSEMIDE 40 MG TABLET PO SCH (09:39)
[2019-11-05] MEDS: CHOLECALCIFEROL 400 UNIT TABLET PO SCH (09:39)
[2019-11-05] MEDS: ROSUVASTATIN 10 MG TABLET PO SCH (09:39)
[2019-11-05] MEDS: METOPROLOL SUCCINATE XL 25 MG TABLET PO SCH (09:39)
[2019-11-05] MEDS: MAGNESIUM GLUCONATE 500 MG TABLET PO SCH (09:39)
[2019-11-05] MEDS: ASCORBIC ACID 500 MG TABLET PO SCH (09:40)
[2019-11-05] MEDS: GABAPENTIN 300 MG CAPSULE PO SCH ×2 (09:40→20:59)
[2019-11-05] MEDS: SPIRONOLACTONE 25 MG TABLET PO SCH (09:40)
[2019-11-05] MEDS: TAMSULOSIN 0.4 MG CAPSULE PO SCH ×2 (09:40→20:59)
[2019-11-05] MEDS: APIXABAN 2.5 MG TABLET PO SCH ×2 (09:40→20:59)
[2019-11-05] MEDS: SILVER SULFADIAZINE 1% CREAM 400 GM JAR TOP SCH (09:41)
[2019-11-05] MEDS: NEOMYCIN/POLYMYXIN/BACITRACIN OINT 28.4 GM TUBE TOP SCH (09:41)
[2019-11-05] MEDS: PIPERACILLIN/TAZOBACTAM 3,375 MG in SODIUM CHLORIDE 0.9% 100 ML IV SCH (09:42)
[2019-11-05 09:47] LABS: Hematocrit 30.3 VOL% (42.0-52.0); Hemoglobin 9.7 GM/DL (14.0-18.0)
[2019-11-05] MEDS: predniSONE 20 MG TABLET PO SCH (09:52)
[2019-11-05] MEDS: ACETAMINOPHEN 325 MG TABLET PO PRN (09:55)
[2019-11-06] MEDS: INSULIN REGULAR 100 UNIT/ML SUBCUT SCH ×2 (00:35→05:28)
[2019-11-06] MEDS: ALBUTEROL/IPRATROPIUM 3 ML NEB RESP TX SCH (07:28)
[2019-11-06 09:01] VITALS: BP 132/79
[2019-11-06] MEDS: PANTOPRAZOLE 40 MG VIAL IV SCH (09:05)
[2019-11-06] MEDS: SPIRONOLACTONE 25 MG TABLET PO SCH (09:42)
[2019-11-06] MEDS: ASCORBIC ACID 500 MG TABLET PO SCH (09:42)
[2019-11-06] MEDS: predniSONE 20 MG TABLET PO SCH (09:42)
[2019-11-06] MEDS: CHOLECALCIFEROL 400 UNIT TABLET PO SCH (09:42)
[2019-11-06] MEDS: TAMSULOSIN 0.4 MG CAPSULE PO SCH (09:42)
[2019-11-06] MEDS: METOPROLOL SUCCINATE XL 25 MG TABLET PO SCH (09:42)
[2019-11-06] MEDS: APIXABAN 2.5 MG TABLET PO SCH (09:42)
[2019-11-06] MEDS: GABAPENTIN 300 MG CAPSULE PO SCH (09:42)
[2019-11-06] MEDS: MAGNESIUM GLUCONATE 500 MG TABLET PO SCH (09:42)
[2019-11-06] MEDS: NEOMYCIN/POLYMYXIN/BACITRACIN OINT 28.4 GM TUBE TOP SCH (09:43)
[2019-11-06] MEDS: SILVER SULFADIAZINE 1% CREAM 400 GM JAR TOP SCH (09:43)
[2019-11-06] MEDS: FUROSEMIDE 40 MG TABLET PO SCH (09:43)
[2019-11-06] MEDS: ROSUVASTATIN 10 MG TABLET PO SCH (09:48)
== END 2019-11-06 13:15 | disposition home health service (06) | DRG 291 ==
LOC: N.ED 19:11 → N.EDINP 22:34 → N.TELEN 23:04 → N.ICU 10-22 12:57 → N.CLINP 10-29 19:36 → N.TELEN 11-03 15:00
PROVIDERS: ADMIT Family Medicine; ATTEND Family Medicine

== ENCOUNTER 2019-11-25 11:57 | Inpatient (IN) ==
[2019-11-25 13:11] LABS: Basophils % 0.1 % (0.0-0.8); Hematocrit 28.2 VOL% (42.0-52.0); Hemoglobin 9.1 GM/DL (14.0-18.0); Immature Granulocytes % 0.8 %; Immature Granulocytes Absolute 0.08 #; Lymphocytes # 0.6 10*3/uL (1.4-4.0); Lymphocytes % 5.5 % (21.2-54.2); Mean Corpuscular HGB Conc 32.3 GM/DL (32-36); Mean Corpuscular Volume 86.5 FL (87-102); Mean Platelet Volume 11.8 FL (9.6-12.0); Monocytes % 5.4 % (1.7-12.7); Neutrophils % 88.2 % (38.7-73.9); Platelet Count 207 T/CUMM (130-400); Red Blood Count 3.26 MC/CUMM (3.8-5.5); Red Cell Distribution Width 18.6 % (9.3-17.3); White Blood Count 10.2 T/CUMM (4-12)
[2019-11-25 13:30] LABS: Alanine Aminotransferase 30 U/L (16-61); Albumin 1.1 G/DL (3.4-5.0); Alkaline Phosphatase 189 U/L (45-117); Aspartate Amino Transferase 23 U/L (0-37); Blood Urea Nitrogen 36 MG/DL (7-18); Calcium 7.2 MG/DL (8.5-10.1); Estimated Glom Filtration Rate 0 ML/MIN; Glucose 288 MG/DL (74-106); Osmolality,Calculated 284.4 MOS/KG (273-304); Total Protein 5.1 G/DL (6.4-8.3); Troponin I 0.019 NG/ML (0.00-0.045)
[2019-11-25 15:08] LABS: Anisocytosis 1+; Burr Cells 1+; Eosinophils 1 % (0-10); Hypochromasia 1+; Lymphocytes 1 % (20-55); Platelet Estimate Normal; Segmented Neutrophils 98 % (50-85); Total Cells Counted 100
[2019-11-25] MEDS ORDERED: SODIUM CHLORIDE 0.9% 1,000 ML IV STA (21:10)
[2019-11-25] MEDS ORDERED: hydrALAZINE 20 MG/1 ML VIAL IV PRN (22:47)
[2019-11-25] MEDS ORDERED: DEXTROSE 10% 250 ML BAG IV PRN (22:47)
[2019-11-25] MEDS ORDERED: GLUCAGON 1 MG VIAL IM PRN (22:47)
[2019-11-25] MEDS ORDERED: MAGNESIUM SULF RIDER 4 GM in PREMIX 1 EACH IV PRN (22:47)
[2019-11-25] MEDS ORDERED: ONDANSETRON 4 MG/2 ML VIAL IV PRN (22:47)
[2019-11-25] MEDS ORDERED: PIPERACILLIN/TAZOBACTAM 3,375 MG in SODIUM CHLORIDE 0.9% 100 ML IV STA (23:21)
[2019-11-25] MEDS ORDERED: VANCOMYCIN INJ 1,000 MG in SODIUM CHLORIDE 0.9% 250 ML IV STA (23:25)
[2019-11-26] MEDS: SODIUM CHLORIDE 0.9% 1,000 ML IV SCH (00:15)
[2019-11-26] MEDS: PANTOPRAZOLE 40 MG TABLET PO SCH ×2 (00:15→09:36)
[2019-11-26] MEDS: DOCUSATE SODIUM 100 MG CAPSULE PO SCH ×3 (00:15→20:21)
[2019-11-26] MEDS: INSULIN REGULAR 100 UNIT/ML SUBCUT SCH ×5 (01:15→20:54)
[2019-11-26] MEDS: ALBUMIN 25% 25 GM in PREMIX 1 EACH IV SCH ×3 (03:00→16:40)
[2019-11-26 06:27] LABS: Basophils % 0.1 % (0.0-0.8); Eosinophils % 0.4 % (0.00-10.9); Hematocrit 24.6 VOL% (42.0-52.0); Hemoglobin 7.8 GM/DL (14.0-18.0); Immature Granulocytes % 0.7 %; Immature Granulocytes Absolute 0.06 #; Lymphocytes # 1.4 10*3/uL (1.4-4.0); Lymphocytes % 16.9 % (21.2-54.2); Mean Corpuscular HGB Conc 31.7 GM/DL (32-36); Mean Corpuscular Volume 89.1 FL (87-102); Mean Platelet Volume 11.6 FL (9.6-12.0); Monocytes % 8.1 % (1.7-12.7); Neutrophils % 73.8 % (38.7-73.9); Platelet Count 182 T/CUMM (130-400); Red Blood Count 2.76 MC/CUMM (3.8-5.5); Red Cell Distribution Width 18.6 % (9.3-17.3); White Blood Count 8.5 T/CUMM (4-12)
[2019-11-26 06:40] LABS: Lymphocytes 20 % (20-55); Platelet Estimate Adequate; Segmented Neutrophils 74 % (50-85); Total Cells Counted 100
[2019-11-26 06:41] LABS: Hypochromasia 1+; Microcytosis Slight; Target Cells Few
[2019-11-26 06:46] LABS: Calcium 7.4 MG/DL (8.5-10.1); Osmolality,Calculated 278.1 MOS/KG (273-304)
[2019-11-26] MEDS: FUROSEMIDE 20 MG/2 ML VIAL IV SCH (09:35)
[2019-11-26] MEDS: POTASSIUM CHLORIDE 20 MEQ TABLET PO SCH (09:36)
[2019-11-26] MEDS: ROSUVASTATIN 10 MG TABLET PO SCH (09:36)
[2019-11-26] MEDS: SILVER SULFADIAZINE 1% CREAM 25 GM TUBE TOP SCH ×2 (09:36→23:07)
[2019-11-26] MEDS: APIXABAN 2.5 MG TABLET PO SCH ×2 (09:36→20:21)
[2019-11-26] MEDS: METOPROLOL SUCCINATE XL 25 MG TABLET PO SCH (09:36)
[2019-11-26] MEDS: TAMSULOSIN 0.4 MG CAPSULE PO SCH ×2 (09:36→20:21)
[2019-11-26] MEDS ORDERED: TUBERCULIN SKIN TEST 0.1 ML SYRINGE INTRADERM ONE ×2 (09:46→14:00)
[2019-11-26] MEDS: PIPERACILLIN/TAZOBACTAM 3,375 MG in SODIUM CHLORIDE 0.9% 100 ML IV SCH ×2 (10:43→17:41)
[2019-11-26] MEDS: MAGNESIUM SULF RIDER 2 GM in PREMIX 1 EACH IV PRN (20:20)
[2019-11-27] MEDS: ALBUMIN 25% 25 GM in PREMIX 1 EACH IV SCH ×3 (01:52→16:59)
[2019-11-27] MEDS: VANCOMYCIN INJ 1,000 MG in SODIUM CHLORIDE 0.9% 250 ML IV SCH (02:58)
[2019-11-27 04:35] LABS: Eosinophils # 0.1 10*3/uL (0.0-0.87); Eosinophils % 1.5 % (0.00-10.9); Hematocrit 18.5 VOL% (42.0-52.0); Immature Granulocytes % 0.3 %; Immature Granulocytes Absolute 0.01 #; Lymphocytes % 25.8 % (21.2-54.2); Mean Corpuscular HGB Conc 31.9 GM/DL (32-36); Mean Corpuscular Volume 85.6 FL (87-102); Mean Platelet Volume 11.4 FL (9.6-12.0); Monocytes % 10.2 % (1.7-12.7); Neutrophils % 62.2 % (38.7-73.9); Platelet Count 131 T/CUMM (130-400); Red Blood Count 2.16 MC/CUMM (3.8-5.5); Red Cell Distribution Width 18.6 % (9.3-17.3); White Blood Count 3.9 T/CUMM (4-12)
[2019-11-27 04:43] LABS: Hemoglobin 5.9 GM/DL (14.0-18.0)
[2019-11-27 04:54] LABS: Hypochromasia 2+; Microcytosis Slight; Platelet Estimate Adequate
[2019-11-27 04:55] LABS: Ovalocytes Slight
[2019-11-27 04:59] LABS: Albumin 2.2 G/DL (3.4-5.0); Bilirubin,Direct 0.26 MG/DL (0.0-0.20); Bilirubin,Indirect 0.4 MG/DL (0.0-1.0); Bilirubin,Total 0.7 MG/DL (0.2-1.0); Calcium 7.8 MG/DL (8.5-10.1); Osmolality,Calculated 280.4 MOS/KG (273-304); Total Protein 4.7 G/DL (6.4-8.3)
[2019-11-27] MEDS: PIPERACILLIN/TAZOBACTAM 3,375 MG in SODIUM CHLORIDE 0.9% 100 ML IV SCH ×3 (05:06→22:18)
[2019-11-27] MEDS ORDERED: SODIUM CHLORIDE 0.9% 1,000 ML IV PRN (05:17)
[2019-11-27] MEDS: SODIUM CHLORIDE 0.9% 1,000 ML IV SCH ×2 (07:09→14:14)
[2019-11-27] MEDS: PANTOPRAZOLE 40 MG TABLET PO SCH (08:25)
[2019-11-27] MEDS: METOPROLOL SUCCINATE XL 25 MG TABLET PO SCH (08:25)
[2019-11-27] MEDS: INSULIN REGULAR 100 UNIT/ML SUBCUT SCH ×3 (08:25→16:19)
[2019-11-27] MEDS: TAMSULOSIN 0.4 MG CAPSULE PO SCH ×2 (08:25→20:06)
[2019-11-27] MEDS: POTASSIUM CHLORIDE 20 MEQ TABLET PO SCH (08:25)
[2019-11-27] MEDS: SILVER SULFADIAZINE 1% CREAM 25 GM TUBE TOP SCH ×2 (08:25→20:06)
[2019-11-27] MEDS: DOCUSATE SODIUM 100 MG CAPSULE PO SCH ×2 (08:25→20:06)
[2019-11-27] MEDS: APIXABAN 2.5 MG TABLET PO SCH (08:25)
[2019-11-27] MEDS: FUROSEMIDE 20 MG/2 ML VIAL IV SCH (08:25)
[2019-11-27] MEDS: ROSUVASTATIN 10 MG TABLET PO SCH (08:25)
[2019-11-28] MEDS ORDERED: SODIUM CHLORIDE 0.9% 0 ML IV ONE (00:51)
[2019-11-28] MEDS: INSULIN REGULAR 100 UNIT/ML SUBCUT SCH ×5 (05:56→20:56)
[2019-11-28 06:10] LABS: Basophils % 0.2 % (0.0-0.8); Eosinophils % 0.5 % (0.00-10.9); Hematocrit 27.9 VOL% (42.0-52.0); Hemoglobin 8.8 GM/DL (14.0-18.0); Immature Granulocytes % 0.7 %; Immature Granulocytes Absolute 0.04 #; Lymphocytes # 1.3 10*3/uL (1.4-4.0); Lymphocytes % 21.7 % (21.2-54.2); Mean Corpuscular HGB Conc 31.5 GM/DL (32-36); Mean Corpuscular Volume 87.2 FL (87-102); Mean Platelet Volume 11.8 FL (9.6-12.0); Neutrophils % 67.9 % (38.7-73.9); Platelet Count 131 T/CUMM (130-400); Red Cell Distribution Width 20.6 % (9.3-17.3)
[2019-11-28 06:41] LABS: Anisocytosis 2+; Macrocytosis 1+; Platelet Estimate Adequate; Target Cells Few
[2019-11-28 06:42] LABS: Burr Cells Few; Poikilocytosis Slight
[2019-11-28] MEDS: PIPERACILLIN/TAZOBACTAM 3,375 MG in SODIUM CHLORIDE 0.9% 100 ML IV SCH ×3 (06:54→23:15)
[2019-11-28 07:36] LABS: Albumin 2.5 G/DL (3.4-5.0); Bilirubin,Direct 0.13 MG/DL (0.0-0.20); Bilirubin,Indirect 1.4 MG/DL (0.0-1.0); Bilirubin,Total 1.5 MG/DL (0.2-1.0); Calcium 8.1 MG/DL (8.5-10.1); Osmolality,Calculated 279.3 MOS/KG (273-304); Total Protein 4.9 G/DL (6.4-8.3)
[2019-11-28] MEDS ORDERED: GLUCAGON 1 MG VIAL IM PRN (08:33)
[2019-11-28] MEDS ORDERED: DEXTROSE 50% 25 GM/50 ML VIAL IV PRN (08:33)
[2019-11-28] MEDS: FUROSEMIDE 20 MG/2 ML VIAL IV SCH (09:45)
[2019-11-28] MEDS: POTASSIUM CHLORIDE 20 MEQ TABLET PO SCH (09:45)
[2019-11-28] MEDS: DOCUSATE SODIUM 100 MG CAPSULE PO SCH ×2 (09:45→20:54)
[2019-11-28] MEDS: ROSUVASTATIN 10 MG TABLET PO SCH (09:45)
[2019-11-28] MEDS: PANTOPRAZOLE 40 MG TABLET PO SCH (09:45)
[2019-11-28] MEDS: TAMSULOSIN 0.4 MG CAPSULE PO SCH ×2 (09:45→20:54)
[2019-11-28] MEDS: METOPROLOL SUCCINATE XL 25 MG TABLET PO SCH (09:45)
[2019-11-28] MEDS: SODIUM CHLORIDE 0.9% 1,000 ML IV SCH (12:27)
[2019-11-28] MEDS: SILVER SULFADIAZINE 1% CREAM 25 GM TUBE TOP SCH ×2 (12:27→20:56)
[2019-11-28] MEDS: VANCOMYCIN INJ 1,000 MG in SODIUM CHLORIDE 0.9% 250 ML IV SCH ×2 (22:04)
[2019-11-29] MEDS: DEXTROSE 5% NACL 0.45% 1,000 ML IV SCH ×2 (03:48→17:28)
[2019-11-29 05:52] LABS: Basophils % 0.1 % (0.0-0.8); Hematocrit 28.3 VOL% (42.0-52.0); Hemoglobin 9.2 GM/DL (14.0-18.0); Immature Granulocytes % 0.6 %; Immature Granulocytes Absolute 0.04 #; Lymphocytes # 0.9 10*3/uL (1.4-4.0); Lymphocytes % 12.1 % (21.2-54.2); Mean Corpuscular HGB Conc 32.5 GM/DL (32-36); Mean Corpuscular Volume 84.5 FL (87-102); Mean Platelet Volume 11.6 FL (9.6-12.0); Monocytes % 8.1 % (1.7-12.7); Neutrophils % 79.1 % (38.7-73.9); Platelet Count 155 T/CUMM (130-400); Red Blood Count 3.35 MC/CUMM (3.8-5.5)
[2019-11-29 06:08] LABS: Bilirubin,Direct 0.23 MG/DL (0.0-0.20); Bilirubin,Indirect 0.9 MG/DL (0.0-1.0); Bilirubin,Total 1.1 MG/DL (0.2-1.0); Calcium 7.7 MG/DL (8.5-10.1); Osmolality,Calculated 281.1 MOS/KG (273-304); Total Protein 4.7 G/DL (6.4-8.3)
[2019-11-29] MEDS: PIPERACILLIN/TAZOBACTAM 3,375 MG in SODIUM CHLORIDE 0.9% 100 ML IV SCH ×3 (06:58→22:56)
[2019-11-29] MEDS: POTASSIUM CHLORIDE RIDER 10 MEQ in PREMIX 1 EACH IV PRN (07:30)
[2019-11-29] MEDS: SODIUM CHLORIDE 0.9% 1,000 ML IV SCH (08:02)
[2019-11-29] MEDS: SILVER SULFADIAZINE 1% CREAM 25 GM TUBE TOP SCH ×2 (08:05→22:55)
[2019-11-29] MEDS: FUROSEMIDE 20 MG/2 ML VIAL IV SCH (08:23)
[2019-11-29] MEDS ORDERED: LIDOCAINE 2% 5 ML VIAL ONE (09:00)
[2019-11-29] MEDS ORDERED: ETOMIDATE 20 MG/10 ML VIAL IV ONE (09:00)
[2019-11-29] MEDS ORDERED: propofoL 200 MG/20 ML VIAL IV ONE (09:00)
[2019-11-29] MEDS: ROSUVASTATIN 10 MG TABLET PO SCH (15:40)
[2019-11-29] MEDS: PANTOPRAZOLE 40 MG TABLET PO SCH (15:40)
[2019-11-29] MEDS: POTASSIUM CHLORIDE 20 MEQ TABLET PO SCH (15:40)
[2019-11-29] MEDS: METOPROLOL SUCCINATE XL 25 MG TABLET PO SCH (15:40)
[2019-11-29] MEDS: INSULIN REGULAR 100 UNIT/ML SUBCUT SCH ×4 (16:09→22:28)
[2019-11-29] MEDS: DOCUSATE SODIUM 100 MG CAPSULE PO SCH ×2 (16:12→21:48)
[2019-11-29] MEDS: TAMSULOSIN 0.4 MG CAPSULE PO SCH ×2 (16:12→21:48)
[2019-11-29] MEDS ORDERED: SERTRALINE 25 MG TABLET PO ONE (17:41)
[2019-11-29] MEDS: ACETAMINOPHEN 325 MG TABLET PO PRN (21:49)
[2019-11-30] MEDS: DEXTROSE 5% NACL 0.45% 1,000 ML IV SCH ×4 (00:45→22:51)
[2019-11-30] MEDS: PIPERACILLIN/TAZOBACTAM 3,375 MG in SODIUM CHLORIDE 0.9% 100 ML IV SCH ×3 (05:43→22:46)
[2019-11-30 06:38] LABS: Basophils % 0.4 % (0.0-0.8); Eosinophils % 0.5 % (0.00-10.9); Hematocrit 25.3 VOL% (42.0-52.0); Hemoglobin 8.2 GM/DL (14.0-18.0); Immature Granulocytes % 0.7 %; Immature Granulocytes Absolute 0.04 #; Lymphocytes # 1.6 10*3/uL (1.4-4.0); Lymphocytes % 29.1 % (21.2-54.2); Mean Corpuscular HGB Conc 32.4 GM/DL (32-36); Mean Corpuscular Volume 85.8 FL (87-102); Mean Platelet Volume 11.6 FL (9.6-12.0); Monocytes % 9.1 % (1.7-12.7); Neutrophils % 60.2 % (38.7-73.9); Platelet Count 146 T/CUMM (130-400); Red Blood Count 2.95 MC/CUMM (3.8-5.5); Red Cell Distribution Width 20.6 % (9.3-17.3); White Blood Count 5.6 T/CUMM (4-12)
[2019-11-30 07:06] LABS: Albumin 1.6 G/DL (3.4-5.0); Bilirubin,Direct 0.13 MG/DL (0.0-0.20); Bilirubin,Indirect 0.9 MG/DL (0.0-1.0); Calcium 7.2 MG/DL (8.5-10.1); Osmolality,Calculated 286.7 MOS/KG (273-304); Total Protein 4.1 G/DL (6.4-8.3)
[2019-11-30] MEDS: POTASSIUM CHLORIDE 20 MEQ TABLET PO SCH (09:36)
[2019-11-30] MEDS: METOPROLOL SUCCINATE XL 25 MG TABLET PO SCH (09:36)
[2019-11-30] MEDS: SERTRALINE 25 MG TABLET PO SCH (09:37)
[2019-11-30] MEDS: ROSUVASTATIN 10 MG TABLET PO SCH (09:37)
[2019-11-30] MEDS: DOCUSATE SODIUM 100 MG CAPSULE PO SCH ×2 (09:37→20:07)
[2019-11-30] MEDS: TAMSULOSIN 0.4 MG CAPSULE PO SCH ×2 (09:37→20:07)
[2019-11-30] MEDS: FUROSEMIDE 20 MG/2 ML VIAL IV SCH (09:37)
[2019-11-30] MEDS: PANTOPRAZOLE 40 MG TABLET PO SCH (09:39)
[2019-11-30] MEDS: SILVER SULFADIAZINE 1% CREAM 25 GM TUBE TOP SCH ×2 (10:31→20:15)
[2019-11-30] MEDS: INSULIN REGULAR 100 UNIT/ML SUBCUT SCH ×4 (11:48→22:45)
[2019-11-30] MEDS: POTASSIUM CHLORIDE 20 MEQ TABLET PO PRN ×2 (20:07→22:45)
[2019-11-30] MEDS: MAGNESIUM SULF RIDER 2 GM in PREMIX 1 EACH IV PRN (20:08)
[2019-11-30] MEDS: SODIUM CHLORIDE 0.9% 1,000 ML IV SCH (22:51)
[2019-12-01] MEDS: POTASSIUM CHLORIDE 20 MEQ TABLET PO PRN ×2 (00:48→02:55)
[2019-12-01] MEDS: PIPERACILLIN/TAZOBACTAM 3,375 MG in SODIUM CHLORIDE 0.9% 100 ML IV SCH ×3 (06:19→21:24)
[2019-12-01] MEDS: DEXTROSE 5% NACL 0.45% 1,000 ML IV SCH (06:19)
[2019-12-01 06:58] LABS: Basophils % 0.3 % (0.0-0.8); Eosinophils % 0.3 % (0.00-10.9); Hematocrit 29.9 VOL% (42.0-52.0); Hemoglobin 9.6 GM/DL (14.0-18.0); Immature Granulocytes % 0.8 %; Immature Granulocytes Absolute 0.07 #; Lymphocytes # 2.3 10*3/uL (1.4-4.0); Lymphocytes % 24.7 % (21.2-54.2); Mean Corpuscular HGB Conc 32.1 GM/DL (32-36); Mean Corpuscular Volume 86.7 FL (87-102); Mean Platelet Volume 10.5 FL (9.6-12.0); Monocytes % 5.4 % (1.7-12.7); Neutrophils % 68.5 % (38.7-73.9); Platelet Count 169 T/CUMM (130-400); Red Blood Count 3.45 MC/CUMM (3.8-5.5); Red Cell Distribution Width 21.4 % (9.3-17.3); White Blood Count 9.2 T/CUMM (4-12)
[2019-12-01 07:26] LABS: Bilirubin,Direct 0.25 MG/DL (0.0-0.20); Bilirubin,Indirect 1.8 MG/DL (0.0-1.0); Calcium 7.3 MG/DL (8.5-10.1)
[2019-12-01 07:27] LABS: Albumin 1.9 G/DL (3.4-5.0)
[2019-12-01] MEDS: INSULIN REGULAR 100 UNIT/ML SUBCUT SCH ×4 (08:43→22:28)
[2019-12-01] MEDS: SODIUM CHLORIDE 0.9% 1,000 ML IV SCH (08:43)
[2019-12-01] MEDS: FUROSEMIDE 20 MG/2 ML VIAL IV SCH (08:58)
[2019-12-01] MEDS: DOCUSATE SODIUM 100 MG CAPSULE PO SCH ×2 (08:58→21:21)
[2019-12-01] MEDS: ROSUVASTATIN 10 MG TABLET PO SCH (08:58)
[2019-12-01] MEDS: POTASSIUM CHLORIDE 20 MEQ TABLET PO SCH (08:58)
[2019-12-01] MEDS: TAMSULOSIN 0.4 MG CAPSULE PO SCH ×2 (08:58→21:21)
[2019-12-01] MEDS: PANTOPRAZOLE 40 MG TABLET PO SCH (08:58)
[2019-12-01] MEDS: METOPROLOL SUCCINATE XL 25 MG TABLET PO SCH (08:58)
[2019-12-01] MEDS: SILVER SULFADIAZINE 1% CREAM 25 GM TUBE TOP SCH ×2 (08:58→21:30)
[2019-12-01] MEDS: SERTRALINE 25 MG TABLET PO SCH (08:58)
[2019-12-01] MEDS: ACETAMINOPHEN 325 MG TABLET PO PRN (17:56)
[2019-12-02 06:01] LABS: Basophils % 0.3 % (0.0-0.8); Eosinophils # 0.1 10*3/uL (0.0-0.87); Eosinophils % 0.6 % (0.00-10.9); Hematocrit 27.7 VOL% (42.0-52.0); Hemoglobin 9.1 GM/DL (14.0-18.0); Immature Granulocytes % 0.6 %; Immature Granulocytes Absolute 0.05 #; Lymphocytes # 1.7 10*3/uL (1.4-4.0); Lymphocytes % 19.5 % (21.2-54.2); Mean Corpuscular HGB Conc 32.9 GM/DL (32-36); Monocytes % 5.5 % (1.7-12.7); Neutrophils % 73.5 % (38.7-73.9); Platelet Count 165 T/CUMM (130-400); Red Blood Count 3.26 MC/CUMM (3.8-5.5); Red Cell Distribution Width 21.2 % (9.3-17.3); White Blood Count 8.9 T/CUMM (4-12)
[2019-12-02] MEDS: PIPERACILLIN/TAZOBACTAM 3,375 MG in SODIUM CHLORIDE 0.9% 100 ML IV SCH ×3 (06:20→21:59)
[2019-12-02 06:31] LABS: Albumin 1.6 G/DL (3.4-5.0); Bilirubin,Direct 0.24 MG/DL (0.0-0.20); Bilirubin,Indirect 1.3 MG/DL (0.0-1.0); Bilirubin,Total 1.5 MG/DL (0.2-1.0); Calcium 7.4 MG/DL (8.5-10.1); Osmolality,Calculated 275.4 MOS/KG (273-304); Total Protein 4.9 G/DL (6.4-8.3)
[2019-12-02] MEDS: INSULIN REGULAR 100 UNIT/ML SUBCUT SCH ×4 (08:04→22:00)
[2019-12-02] MEDS: SODIUM CHLORIDE 0.9% 1,000 ML IV SCH (08:12)
[2019-12-02] MEDS: ROSUVASTATIN 10 MG TABLET PO SCH (08:49)
[2019-12-02] MEDS: TAMSULOSIN 0.4 MG CAPSULE PO SCH ×2 (08:49→21:58)
[2019-12-02] MEDS: SERTRALINE 25 MG TABLET PO SCH (08:49)
[2019-12-02] MEDS: METOPROLOL SUCCINATE XL 25 MG TABLET PO SCH (08:50)
[2019-12-02] MEDS: POTASSIUM CHLORIDE 20 MEQ TABLET PO SCH (08:50)
[2019-12-02] MEDS: DOCUSATE SODIUM 100 MG CAPSULE PO SCH ×2 (08:50→23:10)
[2019-12-02] MEDS: FUROSEMIDE 20 MG/2 ML VIAL IV SCH (08:50)
[2019-12-02] MEDS: PANTOPRAZOLE 40 MG TABLET PO SCH (08:50)
[2019-12-02] MEDS: DEXTROSE 5% NACL 0.45% 1,000 ML IV SCH ×2 (10:00→14:31)
[2019-12-02] MEDS: POTASSIUM CHLORIDE 20 MEQ TABLET PO PRN ×4 (10:57→19:03)
[2019-12-02] MEDS: SILVER SULFADIAZINE 1% CREAM 25 GM TUBE TOP SCH ×2 (13:00→22:02)
[2019-12-02] MEDS: ACETAMINOPHEN 325 MG TABLET PO PRN (16:35)
[2019-12-03 01:18] LABS: Apearance,Urine Slightly Hazy (Clear); Bilirubin,Urine Negative (Negative); Blood, Urine Negative (Negative); Glucose,Urine (UA) Negative (Negative); Hyaline Casts,Urine 1 /LPF (0-3); Ketones,Urine Negative (Negative); Mucus,Urine Occasional /LPF (Occasional); Nitrite,Urine Negative (Negative); Protein,Urine Negative; RBC,Urine 4 /HPF (0-4); Squamous Epithelial Cell,Urine Occasional /HPF (0-10); Urine Color Amber (Yellow); Urine Specific Gravity 1.026 (1.001-1.035); Urine Urobilinogen < 2.0 EU/DL (0.2-1.0); WBC,Urine 2 /HPF (0-6)
[2019-12-03] MEDS: PIPERACILLIN/TAZOBACTAM 3,375 MG in SODIUM CHLORIDE 0.9% 100 ML IV SCH ×2 (06:15→13:05)
[2019-12-03] MEDS ORDERED: FUROSEMIDE 20 MG/2 ML VIAL IM ONE (06:38)
[2019-12-03] MEDS ORDERED: FUROSEMIDE 20 MG/2 ML VIAL IV ONE (07:11)
[2019-12-03] MEDS: SODIUM CHLORIDE 0.9% 1,000 ML IV SCH (08:08)
[2019-12-03] MEDS: PANTOPRAZOLE 40 MG TABLET PO SCH (09:51)
[2019-12-03] MEDS: DOCUSATE SODIUM 100 MG CAPSULE PO SCH ×2 (09:51→21:30)
[2019-12-03] MEDS: TAMSULOSIN 0.4 MG CAPSULE PO SCH ×2 (09:51→21:30)
[2019-12-03] MEDS: METOPROLOL SUCCINATE XL 25 MG TABLET PO SCH (09:51)
[2019-12-03] MEDS: POTASSIUM CHLORIDE 20 MEQ TABLET PO SCH (09:51)
[2019-12-03] MEDS: SERTRALINE 25 MG TABLET PO SCH (09:51)
[2019-12-03] MEDS: FUROSEMIDE 20 MG/2 ML VIAL IV SCH (09:51)
[2019-12-03] MEDS: ROSUVASTATIN 10 MG TABLET PO SCH (09:51)
[2019-12-03] MEDS: INSULIN REGULAR 100 UNIT/ML SUBCUT SCH ×4 (09:52→21:30)
[2019-12-03] MEDS: SILVER SULFADIAZINE 1% CREAM 25 GM TUBE TOP SCH ×2 (09:52→21:30)
[2019-12-03] MEDS: DEXTROSE 5% NACL 0.45% 1,000 ML IV SCH (10:34)
[2019-12-03] MEDS: SUCRALFATE 1 GM/10 ML UDCUP PO SCH ×2 (16:35→21:30)
[2019-12-03] MEDS: APIXABAN 2.5 MG TABLET PO SCH (21:30)
[2019-12-03] MEDS ORDERED: FUROSEMIDE 20 MG/2 ML VIAL IV SCH (22:04)
[2019-12-04 05:29] LABS: Basophils % 0.2 % (0.0-0.8); Eosinophils % 0.2 % (0.00-10.9); Hemoglobin 9.8 GM/DL (14.0-18.0); Immature Granulocytes % 0.6 %; Immature Granulocytes Absolute 0.08 #; Lymphocytes # 1.5 10*3/uL (1.4-4.0); Lymphocytes % 12.4 % (21.2-54.2); Mean Corpuscular HGB Conc 32.7 GM/DL (32-36); Monocytes % 4.8 % (1.7-12.7); Neutrophils % 81.8 % (38.7-73.9); Platelet Count 216 T/CUMM (130-400); Red Blood Count 3.49 MC/CUMM (3.8-5.5); Red Cell Distribution Width 21.9 % (9.3-17.3); White Blood Count 12.3 T/CUMM (4-12)
[2019-12-04 05:34] LABS: Albumin 1.6 G/DL (3.4-5.0); Bilirubin,Direct 0.33 MG/DL (0.0-0.20); Bilirubin,Indirect 0.5 MG/DL (0.0-1.0); Bilirubin,Total 0.8 MG/DL (0.2-1.0); Calcium 7.3 MG/DL (8.5-10.1); Osmolality,Calculated 287.6 MOS/KG (273-304); Total Protein 4.8 G/DL (6.4-8.3)
[2019-12-04] MEDS: METOPROLOL SUCCINATE XL 25 MG TABLET PO SCH (08:20)
[2019-12-04] MEDS: ROSUVASTATIN 10 MG TABLET PO SCH (08:20)
[2019-12-04] MEDS: PANTOPRAZOLE 40 MG TABLET PO SCH (08:20)
[2019-12-04] MEDS: DOCUSATE SODIUM 100 MG CAPSULE PO SCH ×2 (08:20→22:22)
[2019-12-04] MEDS: MULTIVITAMIN (CENTRUM) TABLET PO SCH (08:20)
[2019-12-04] MEDS: POTASSIUM CHLORIDE 20 MEQ TABLET PO PRN ×4 (08:20→15:33)
[2019-12-04] MEDS: POTASSIUM CHLORIDE 20 MEQ TABLET PO SCH (08:20)
[2019-12-04] MEDS: SERTRALINE 25 MG TABLET PO SCH (08:20)
[2019-12-04] MEDS: APIXABAN 2.5 MG TABLET PO SCH ×2 (08:20→22:36)
[2019-12-04] MEDS: TAMSULOSIN 0.4 MG CAPSULE PO SCH ×2 (08:20→22:36)
[2019-12-04] MEDS: MAGNESIUM SULF RIDER 2 GM in PREMIX 1 EACH IV PRN (08:21)
[2019-12-04] MEDS: SUCRALFATE 1 GM/10 ML UDCUP PO SCH ×4 (08:21→22:36)
[2019-12-04] MEDS: SILVER SULFADIAZINE 1% CREAM 25 GM TUBE TOP SCH ×2 (08:22→22:37)
[2019-12-04] MEDS: SODIUM CHLORIDE 0.9% 1,000 ML IV SCH (08:23)
[2019-12-04] MEDS: INSULIN REGULAR 100 UNIT/ML SUBCUT SCH ×4 (08:32→23:27)
[2019-12-04] MEDS: FUROSEMIDE 40 MG/4 ML VIAL IV SCH (15:31)
[2019-12-04] MEDS: ALBUMIN 25% 25 GM in PREMIX 1 EACH IV SCH (17:55)
[2019-12-04] MEDS ORDERED: ETOMIDATE 20 MG/10 ML VIAL IV ONE ×2 (21:03→21:08)
[2019-12-04] MEDS ORDERED: SUCCINYLCHOLINE 200 MG/10 ML VIAL ONE (21:04)
[2019-12-04] MEDS ORDERED: SUCCINYLCHOLINE 200 MG/10 ML VIAL IV ONE (21:09)
[2019-12-04] MEDS ORDERED: PIPERACILLIN/TAZOBACTAM 3,375 MG in SODIUM CHLORIDE 0.9% 100 ML IV SCH (21:30)
[2019-12-04] MEDS ORDERED: DILTIAZEM 50 MG/10 ML VIAL IV ONE (22:00)
[2019-12-04 22:07] LABS: Basophils % 0.2 % (0.0-0.8); Eosinophils # 0.1 10*3/uL (0.0-0.87); Eosinophils % 0.4 % (0.00-10.9); Hematocrit 30.9 VOL% (42.0-52.0); Hemoglobin 9.7 GM/DL (14.0-18.0); Immature Granulocytes % 0.7 %; Immature Granulocytes Absolute 0.14 #; Lymphocytes # 3.9 10*3/uL (1.4-4.0); Lymphocytes % 20.2 % (21.2-54.2); Mean Corpuscular HGB Conc 31.4 GM/DL (32-36); Mean Corpuscular Volume 88.8 FL (87-102); Mean Platelet Volume 10.7 FL (9.6-12.0); Monocytes % 2.8 % (1.7-12.7); Neutrophils % 75.7 % (38.7-73.9); Platelet Count 234 T/CUMM (130-400); Red Blood Count 3.48 MC/CUMM (3.8-5.5); Red Cell Distribution Width 22.6 % (9.3-17.3); White Blood Count 19.4 T/CUMM (4-12)
[2019-12-04] MEDS: dilTIAZem Drip 125 MG/125 ML PREMIX IV SCH (22:15)
[2019-12-04 22:19] LABS: Partial Thromboplastin Time 45.5 SECS (23.9-33.8)
[2019-12-04] MEDS: PANTOPRAZOLE 40 MG VIAL IV SCH (22:35)
[2019-12-04] MEDS: PIPERACILLIN/TAZOBACTAM 3,375 MG in SODIUM CHLORIDE 0.9% 100 ML IV SCH (22:37)
[2019-12-04 22:38] LABS: Alanine Aminotransferase 13 U/L (16-61); Albumin 2.3 G/DL (3.4-5.0); Alkaline Phosphatase 92 U/L (45-117); Aspartate Amino Transferase 24 U/L (0-37); Blood Urea Nitrogen 8 MG/DL (7-18); Calcium 7.7 MG/DL (8.5-10.1); Estimated Glom Filtration Rate 93 ML/MIN; Glucose 151 MG/DL (74-106); Total Protein 5.8 G/DL (6.4-8.3)
[2019-12-04 22:39] LABS: Troponin I 0.198 NG/ML (0.00-0.045)
[2019-12-04] MEDS: VANCOMYCIN INJ 1,000 MG in SODIUM CHLORIDE 0.9% 250 ML IV SCH (22:43)
[2019-12-04 22:56] LABS: ABG Base Excess -7.4 MMOL/L (-2.5-2.5); ABG HCO3 18.3 MMOL/L (20-26); ABG Oxygen Saturation 97.2 % (95-100); ABG PCO2 58.7 MM HG (35-48); ABG TCO2 20.4 MMOL/L (23-27); Allen Test Positive; Pt O2 Delivery Device Ventilator
[2019-12-04 22:57] LABS: ABG PH 7.173 (7.35-7.45)
[2019-12-04] MEDS: FLUCONAZOLE INJ 100 MG in IV BAG 1 EACH IV SCH (23:26)
[2019-12-05] MEDS: VANCOMYCIN INJ 1,000 MG in SODIUM CHLORIDE 0.9% 250 ML IV SCH ×2 (01:44→14:48)
[2019-12-05] MEDS: ALBUMIN 25% 25 GM in PREMIX 1 EACH IV SCH ×3 (01:44→20:05)
[2019-12-05 04:34] LABS: ABG HCO3 19.6 MMOL/L (20-26); ABG Oxygen Saturation 97.7 % (95-100); ABG PCO2 39.1 MM HG (35-48); ABG PH 7.318 (7.35-7.45); ABG PO2 204.4 MM HG (80-95); ABG TCO2 20.8 MMOL/L (23-27); Allen Test Positive; Pt O2 Delivery Device Ventilator
[2019-12-05 04:49] LABS: Basophils % 0.1 % (0.0-0.8); Eosinophils % 0.1 % (0.00-10.9); Hematocrit 24.6 VOL% (42.0-52.0); Hemoglobin 7.7 GM/DL (14.0-18.0); Immature Granulocytes Absolute 0.15 #; Lymphocytes # 1.1 10*3/uL (1.4-4.0); Lymphocytes % 7.2 % (21.2-54.2); Mean Corpuscular HGB Conc 31.3 GM/DL (32-36); Mean Corpuscular Volume 89.1 FL (87-102); Mean Platelet Volume 11.2 FL (9.6-12.0); Monocytes % 2.8 % (1.7-12.7); Neutrophils % 88.8 % (38.7-73.9); Platelet Count 180 T/CUMM (130-400); Red Blood Count 2.76 MC/CUMM (3.8-5.5); Red Cell Distribution Width 22.7 % (9.3-17.3); White Blood Count 14.8 T/CUMM (4-12)
[2019-12-05 04:59] LABS: PT Patient Result 20.7 SECS (9.8-11.9); Partial Thromboplastin Time 55.3 SECS (23.9-33.8)
[2019-12-05 05:19] LABS: Acanthocytes Few; Hypochromasia 1+; Microcytosis 1+; Polychromasia Slight; Target Cells Few
[2019-12-05 05:20] LABS: Burr Cells Slight; Platelet Estimate Adequate
[2019-12-05] MEDS ORDERED: MIDAZOLAM 100 MG in SODIUM CHLORIDE 0.9% 80 ML IV PRN (05:27)
[2019-12-05 05:28] LABS: Alanine Aminotransferase 9 U/L (16-61); Albumin 2.2 G/DL (3.4-5.0); Alkaline Phosphatase 66 U/L (45-117); Aspartate Amino Transferase 17 U/L (0-37); Blood Urea Nitrogen 9 MG/DL (7-18); Calcium 7.8 MG/DL (8.5-10.1); Estimated Glom Filtration Rate 111 ML/MIN; Glucose 179 MG/DL (74-106); Osmolality,Calculated 290.7 MOS/KG (273-304); Total Protein 5.1 G/DL (6.4-8.3)
[2019-12-05 05:33] LABS: Troponin I 0.218 NG/ML (0.00-0.045)
[2019-12-05] MEDS: POTASSIUM CHLORIDE 20 MEQ TABLET PO PRN (06:01)
[2019-12-05] MEDS: MAGNESIUM SULF RIDER 2 GM in PREMIX 1 EACH IV PRN (06:02)
[2019-12-05] MEDS: PIPERACILLIN/TAZOBACTAM 3,375 MG in SODIUM CHLORIDE 0.9% 100 ML IV SCH ×3 (06:21→23:14)
[2019-12-05] MEDS: SUCRALFATE 1 GM/10 ML UDCUP PO SCH ×4 (08:27→20:07)
[2019-12-05] MEDS: DOCUSATE SODIUM 100 MG CAPSULE PO SCH ×2 (08:28→20:07)
[2019-12-05] MEDS: MULTIVITAMIN (CENTRUM) TABLET PO SCH (08:28)
[2019-12-05] MEDS: APIXABAN 2.5 MG TABLET PO SCH ×2 (08:28→20:07)
[2019-12-05] MEDS: SERTRALINE 25 MG TABLET PO SCH (08:28)
[2019-12-05] MEDS: ROSUVASTATIN 10 MG TABLET PO SCH (08:28)
[2019-12-05] MEDS: TAMSULOSIN 0.4 MG CAPSULE PO SCH ×2 (08:28→20:08)
[2019-12-05] MEDS: PANTOPRAZOLE 40 MG VIAL IV SCH ×2 (08:29→20:11)
[2019-12-05] MEDS: FUROSEMIDE 40 MG/4 ML VIAL IV SCH ×2 (08:29→17:20)
[2019-12-05] MEDS: METOPROLOL SUCCINATE XL 25 MG TABLET PO SCH (08:30)
[2019-12-05] MEDS: SILVER SULFADIAZINE 1% CREAM 25 GM TUBE TOP SCH ×2 (08:32→20:24)
[2019-12-05] MEDS: POTASSIUM CHLORIDE 20 MEQ TABLET PO SCH (08:32)
[2019-12-05] MEDS: POTASSIUM CHLORIDE RIDER 10 MEQ in PREMIX 1 EACH IV PRN ×2 (08:33→09:40)
[2019-12-05] MEDS ORDERED: MAGNESIUM SULF RIDER 2 GM in PREMIX 1 EACH IV ONE (09:08)
[2019-12-05] MEDS: INSULIN REGULAR 100 UNIT/ML SUBCUT SCH ×4 (09:27→20:24)
[2019-12-05] MEDS: methylPREDNISolone SOD SUC 40 MG/1 ML VIAL IV SCH ×2 (10:12→17:43)
[2019-12-05] MEDS ORDERED: PHENYLEPHRINE DRIP 40 MG/250 ML PREMIX IV PRN (10:51)
[2019-12-05] MEDS: POTASSIUM CHLORIDE 20 MEQ/15 ML UDCUP PER TUBE SCH ×3 (11:00→17:20)
[2019-12-05] MEDS ORDERED: SKIN HEALING OINT (AQUAPHOR) 50 GM TUBE TOP PRN (14:01)
[2019-12-05] MEDS: MENTHOL/ZINC OXIDE OINT 71 GM JAR TOP SCH (16:27)
[2019-12-05] MEDS: FLUCONAZOLE INJ 100 MG in IV BAG 1 EACH IV SCH (21:15)
[2019-12-05] MEDS: dilTIAZem Drip 125 MG/125 ML PREMIX IV SCH (21:55)
[2019-12-06] MEDS ORDERED: ROCURONIUM 100 MG/10 ML VIAL IV ONE (00:16)
[2019-12-06] MEDS ORDERED: ETOMIDATE 20 MG/10 ML VIAL IV ONE (00:16)
[2019-12-06] MEDS: methylPREDNISolone SOD SUC 40 MG/1 ML VIAL IV SCH ×3 (02:40→17:40)
[2019-12-06] MEDS: ALBUMIN 25% 25 GM in PREMIX 1 EACH IV SCH (02:42)
[2019-12-06 04:21] LABS: ABG Base Excess -1.9 MMOL/L (-2.5-2.5); ABG HCO3 22.8 MMOL/L (20-26); ABG Oxygen Saturation 98.7 % (95-100); ABG PCO2 36.6 MM HG (35-48); ABG PH 7.398 (7.35-7.45); Allen Test Positive; Pt O2 Delivery Device Ventilator
[2019-12-06 04:46] LABS: Basophils % 0.1 % (0.0-0.8); Hematocrit 24.9 VOL% (42.0-52.0); Hemoglobin 8.3 GM/DL (14.0-18.0); Immature Granulocytes % 0.5 %; Immature Granulocytes Absolute 0.05 #; Lymphocytes # 1.1 10*3/uL (1.4-4.0); Lymphocytes % 10.7 % (21.2-54.2); Mean Corpuscular HGB Conc 33.3 GM/DL (32-36); Mean Corpuscular Volume 84.1 FL (87-102); Mean Platelet Volume 11.3 FL (9.6-12.0); Monocytes % 1.2 % (1.7-12.7); Neutrophils % 87.5 % (38.7-73.9); Platelet Count 174 T/CUMM (130-400); Red Blood Count 2.96 MC/CUMM (3.8-5.5); Red Cell Distribution Width 22.2 % (9.3-17.3); White Blood Count 9.9 T/CUMM (4-12)
[2019-12-06 05:01] LABS: Calcium 8.4 MG/DL (8.5-10.1); Osmolality,Calculated 292.4 MOS/KG (273-304)
[2019-12-06] MEDS: POTASSIUM CHLORIDE RIDER 10 MEQ in PREMIX 1 EACH IV PRN ×2 (05:10→06:25)
[2019-12-06 06:10] LABS: Platelet Estimate Normal
[2019-12-06 06:11] LABS: Anisocytosis 1+; Burr Cells Few; Poikilocytosis Slight; Target Cells Few
[2019-12-06] MEDS: PIPERACILLIN/TAZOBACTAM 3,375 MG in SODIUM CHLORIDE 0.9% 100 ML IV SCH ×3 (06:24→22:08)
[2019-12-06] MEDS: TAMSULOSIN 0.4 MG CAPSULE PO SCH ×2 (08:33→20:48)
[2019-12-06] MEDS: MENTHOL/ZINC OXIDE OINT 71 GM JAR TOP SCH (08:34)
[2019-12-06] MEDS: METOPROLOL SUCCINATE XL 25 MG TABLET PO SCH (08:34)
[2019-12-06] MEDS: POTASSIUM CHLORIDE 20 MEQ TABLET PO SCH (08:36)
[2019-12-06] MEDS: SERTRALINE 25 MG TABLET PO SCH (08:36)
[2019-12-06] MEDS: APIXABAN 2.5 MG TABLET PO SCH ×2 (08:37→20:48)
[2019-12-06] MEDS: SUCRALFATE 1 GM/10 ML UDCUP PO SCH ×4 (08:37→20:47)
[2019-12-06] MEDS: MULTIVITAMIN (CENTRUM) TABLET PO SCH (08:37)
[2019-12-06] MEDS: PANTOPRAZOLE 40 MG VIAL IV SCH ×2 (08:37→20:45)
[2019-12-06] MEDS: ROSUVASTATIN 10 MG TABLET PO SCH (08:37)
[2019-12-06] MEDS: DOCUSATE SODIUM 100 MG CAPSULE PO SCH ×2 (08:42→20:47)
[2019-12-06] MEDS: VANCOMYCIN INJ 1,000 MG in SODIUM CHLORIDE 0.9% 250 ML IV SCH ×2 (08:45→23:44)
[2019-12-06] MEDS: FUROSEMIDE 40 MG/4 ML VIAL IV SCH (08:46)
[2019-12-06] MEDS: INSULIN REGULAR 100 UNIT/ML SUBCUT SCH ×3 (09:39→17:40)
[2019-12-06] MEDS: POTASSIUM CHLORIDE 20 MEQ/15 ML UDCUP PER TUBE SCH ×4 (09:41→20:48)
[2019-12-06] MEDS: SILVER SULFADIAZINE 1% CREAM 25 GM TUBE TOP SCH ×2 (10:50→20:51)
[2019-12-06] MEDS: FLUCONAZOLE INJ 100 MG in IV BAG 1 EACH IV SCH (20:48)
[2019-12-06 22:09] LABS: ABG Base Excess -0.1 MMOL/L (-2.5-2.5); ABG HCO3 24.4 MMOL/L (20-26); ABG PCO2 38.1 MM HG (35-48); ABG PH 7.413 (7.35-7.45); ABG TCO2 22.4 MMOL/L (23-27); Allen Test Positive
[2019-12-07] MEDS: INSULIN REGULAR 100 UNIT/ML SUBCUT SCH ×4 (00:28→17:52)
[2019-12-07] MEDS: methylPREDNISolone SOD SUC 40 MG/1 ML VIAL IV SCH ×3 (02:07→21:23)
[2019-12-07 03:57] LABS: Hematocrit 26.7 VOL% (42.0-52.0); Hemoglobin 8.5 GM/DL (14.0-18.0); Immature Granulocytes % 0.7 %; Immature Granulocytes Absolute 0.09 #; Lymphocytes # 0.9 10*3/uL (1.4-4.0); Mean Corpuscular HGB Conc 31.8 GM/DL (32-36); Mean Corpuscular Volume 86.7 FL (87-102); Mean Platelet Volume 11.4 FL (9.6-12.0); Monocytes % 2.3 % (1.7-12.7); Platelet Count 174 T/CUMM (130-400); Red Blood Count 3.08 MC/CUMM (3.8-5.5); Red Cell Distribution Width 22.9 % (9.3-17.3); White Blood Count 13.3 T/CUMM (4-12)
[2019-12-07 04:11] LABS: ABG HCO3 22.7 MMOL/L (20-26); ABG Oxygen Saturation 98.8 % (95-100); ABG PCO2 39.1 MM HG (35-48); ABG PH 7.376 (7.35-7.45); ABG TCO2 21.1 MMOL/L (23-27)
[2019-12-07 04:36] LABS: Calcium 8.4 MG/DL (8.5-10.1)
[2019-12-07] MEDS: PIPERACILLIN/TAZOBACTAM 3,375 MG in SODIUM CHLORIDE 0.9% 100 ML IV SCH ×3 (06:28→21:24)
[2019-12-07] MEDS: POTASSIUM CHLORIDE RIDER 10 MEQ in PREMIX 1 EACH IV PRN ×3 (09:02→11:10)
[2019-12-07] MEDS: PANTOPRAZOLE 40 MG VIAL IV SCH ×2 (09:06→21:20)
[2019-12-07] MEDS: FUROSEMIDE 40 MG/4 ML VIAL IV SCH (09:06)
[2019-12-07] MEDS: VANCOMYCIN INJ 1,000 MG in SODIUM CHLORIDE 0.9% 250 ML IV SCH (09:07)
[2019-12-07] MEDS: SERTRALINE 25 MG TABLET PO SCH (09:18)
[2019-12-07] MEDS: METOPROLOL SUCCINATE XL 25 MG TABLET PO SCH (09:18)
[2019-12-07] MEDS: TAMSULOSIN 0.4 MG CAPSULE PO SCH ×2 (09:18→21:20)
[2019-12-07] MEDS: ROSUVASTATIN 10 MG TABLET PO SCH (09:19)
[2019-12-07] MEDS: MENTHOL/ZINC OXIDE OINT 71 GM JAR TOP SCH (09:19)
[2019-12-07] MEDS: SUCRALFATE 1 GM/10 ML UDCUP PO SCH ×4 (09:19→21:12)
[2019-12-07] MEDS: DOCUSATE SODIUM 100 MG CAPSULE PO SCH ×2 (09:19→21:12)
[2019-12-07] MEDS: APIXABAN 2.5 MG TABLET PO SCH ×2 (09:19→21:20)
[2019-12-07] MEDS: MULTIVITAMIN (CENTRUM) TABLET PO SCH (09:19)
[2019-12-07] MEDS: SODIUM CHLORIDE 0.45% 1,000 ML IV SCH (10:55)
[2019-12-07] MEDS: SILVER SULFADIAZINE 1% CREAM 25 GM TUBE TOP SCH ×2 (15:09→21:23)
[2019-12-07] MEDS: FLUCONAZOLE INJ 100 MG in IV BAG 1 EACH IV SCH (21:18)
[2019-12-08] MEDS: INSULIN REGULAR 100 UNIT/ML SUBCUT SCH ×4 (00:55→18:26)
[2019-12-08] MEDS: SODIUM CHLORIDE 0.45% 1,000 ML IV SCH (00:55)
[2019-12-08 06:23] LABS: Basophils % 0.1 % (0.0-0.8); Hematocrit 27.9 VOL% (42.0-52.0); Immature Granulocytes % 0.6 %; Immature Granulocytes Absolute 0.07 #; Lymphocytes # 0.9 10*3/uL (1.4-4.0); Lymphocytes % 7.1 % (21.2-54.2); Mean Corpuscular HGB Conc 32.3 GM/DL (32-36); Mean Corpuscular Volume 85.3 FL (87-102); Mean Platelet Volume 10.9 FL (9.6-12.0); Monocytes % 4.8 % (1.7-12.7); Neutrophils % 87.4 % (38.7-73.9); Platelet Count 154 T/CUMM (130-400); Red Blood Count 3.27 MC/CUMM (3.8-5.5); Red Cell Distribution Width 23.1 % (9.3-17.3); White Blood Count 12.5 T/CUMM (4-12)
[2019-12-08] MEDS: PIPERACILLIN/TAZOBACTAM 3,375 MG in SODIUM CHLORIDE 0.9% 100 ML IV SCH ×3 (06:44→23:57)
[2019-12-08 06:49] LABS: Hypochromasia 1+; Osmolality,Calculated 298.1 MOS/KG (273-304)
[2019-12-08] MEDS: DOCUSATE SODIUM 100 MG CAPSULE PO SCH ×2 (08:35→20:31)
[2019-12-08] MEDS: MULTIVITAMIN (CENTRUM) TABLET PO SCH (08:35)
[2019-12-08] MEDS: MENTHOL/ZINC OXIDE OINT 71 GM JAR TOP SCH (08:35)
[2019-12-08] MEDS: ROSUVASTATIN 10 MG TABLET PO SCH (08:35)
[2019-12-08] MEDS: TAMSULOSIN 0.4 MG CAPSULE PO SCH ×2 (08:35→20:31)
[2019-12-08] MEDS: SUCRALFATE 1 GM/10 ML UDCUP PO SCH ×4 (08:35→20:31)
[2019-12-08] MEDS: APIXABAN 2.5 MG TABLET PO SCH ×2 (08:35→20:31)
[2019-12-08] MEDS: SILVER SULFADIAZINE 1% CREAM 25 GM TUBE TOP SCH ×2 (08:36→20:31)
[2019-12-08] MEDS: METOPROLOL SUCCINATE XL 25 MG TABLET PO SCH (08:37)
[2019-12-08] MEDS: SERTRALINE 25 MG TABLET PO SCH (08:37)
[2019-12-08] MEDS: FUROSEMIDE 40 MG/4 ML VIAL IV SCH (08:39)
[2019-12-08] MEDS: PANTOPRAZOLE 40 MG VIAL IV SCH ×2 (08:42→20:31)
[2019-12-08] MEDS: methylPREDNISolone SOD SUC 40 MG/1 ML VIAL IV SCH ×2 (08:43→20:31)
[2019-12-08] MEDS: VANCOMYCIN INJ 1,000 MG in SODIUM CHLORIDE 0.9% 250 ML IV SCH (08:59)
[2019-12-08] MEDS: POTASSIUM CHLORIDE RIDER 10 MEQ in PREMIX 1 EACH IV PRN ×6 (09:01→18:26)
[2019-12-08] MEDS: FLUCONAZOLE INJ 100 MG in IV BAG 1 EACH IV SCH (20:31)
[2019-12-09] MEDS: INSULIN REGULAR 100 UNIT/ML SUBCUT SCH ×4 (00:40→17:55)
[2019-12-09] MEDS: POTASSIUM CHLORIDE RIDER 10 MEQ in PREMIX 1 EACH IV PRN ×5 (00:51→06:47)
[2019-12-09 04:39] LABS: Basophils % 0.1 % (0.0-0.8); Eosinophils % 0.1 % (0.00-10.9); Hematocrit 25.2 VOL% (42.0-52.0); Hemoglobin 8.3 GM/DL (14.0-18.0); Immature Granulocytes % 0.7 %; Immature Granulocytes Absolute 0.08 #; Lymphocytes # 0.9 10*3/uL (1.4-4.0); Lymphocytes % 8.6 % (21.2-54.2); Mean Corpuscular HGB Conc 32.9 GM/DL (32-36); Mean Corpuscular Volume 83.7 FL (87-102); Mean Platelet Volume 12.1 FL (9.6-12.0); Monocytes % 3.4 % (1.7-12.7); Neutrophils % 87.1 % (38.7-73.9); Platelet Count 150 T/CUMM (130-400); Red Blood Count 3.01 MC/CUMM (3.8-5.5); Red Cell Distribution Width 22.8 % (9.3-17.3); White Blood Count 10.8 T/CUMM (4-12)
[2019-12-09 05:03] LABS: Calcium 8.3 MG/DL (8.5-10.1); Osmolality,Calculated 296.3 MOS/KG (273-304)
[2019-12-09 05:07] LABS: Target Cells Few
[2019-12-09 05:08] LABS: Hypochromasia 1+; Microcytosis 1+; Ovalocytes Slight
[2019-12-09 05:09] LABS: Acanthocytes Few; Pappenheimer Bodies Slight; Platelet Estimate Adequate
[2019-12-09] MEDS: PIPERACILLIN/TAZOBACTAM 3,375 MG in SODIUM CHLORIDE 0.9% 100 ML IV SCH (05:49)
[2019-12-09] MEDS: SUCRALFATE 1 GM/10 ML UDCUP PO SCH ×4 (08:52→20:52)
[2019-12-09] MEDS: methylPREDNISolone SOD SUC 40 MG/1 ML VIAL IV SCH ×2 (08:52→20:52)
[2019-12-09] MEDS: FUROSEMIDE 40 MG/4 ML VIAL IV SCH (08:52)
[2019-12-09] MEDS: PANTOPRAZOLE 40 MG VIAL IV SCH ×2 (08:52→20:50)
[2019-12-09] MEDS: APIXABAN 2.5 MG TABLET PO SCH ×2 (08:53→20:52)
[2019-12-09] MEDS: DOCUSATE SODIUM 100 MG CAPSULE PO SCH ×2 (08:53→20:52)
[2019-12-09] MEDS: MULTIVITAMIN (CENTRUM) TABLET PO SCH (08:53)
[2019-12-09] MEDS: METOPROLOL SUCCINATE XL 25 MG TABLET PO SCH (08:53)
[2019-12-09] MEDS: SERTRALINE 25 MG TABLET PO SCH (08:53)
[2019-12-09] MEDS: ROSUVASTATIN 10 MG TABLET PO SCH (08:53)
[2019-12-09] MEDS: TAMSULOSIN 0.4 MG CAPSULE PO SCH ×2 (08:53→20:52)
[2019-12-09] MEDS: MENTHOL/ZINC OXIDE OINT 71 GM JAR TOP SCH (08:53)
[2019-12-09] MEDS: SILVER SULFADIAZINE 1% CREAM 25 GM TUBE TOP SCH ×2 (08:54→20:52)
[2019-12-09] MEDS: SODIUM CHLORIDE 0.9% IV SCH ×2 (11:43→21:31)
[2019-12-09] MEDS: GANCICLOVIR IV SCH ×2 (11:43→21:31)
[2019-12-09 17:55] LABS: HIV Antigen/Antibody Result Nonreactive (Nonreactive)
[2019-12-09] MEDS: FLUCONAZOLE INJ 100 MG in IV BAG 1 EACH IV SCH (20:55)
[2019-12-10] MEDS: INSULIN REGULAR 100 UNIT/ML SUBCUT SCH ×6 (00:10→21:56)
[2019-12-10 06:35] LABS: Calcium 8.3 MG/DL (8.5-10.1); Osmolality,Calculated 294.4 MOS/KG (273-304)
[2019-12-10] MEDS: POTASSIUM CHLORIDE RIDER 10 MEQ in PREMIX 1 EACH IV PRN ×4 (07:11→12:08)
[2019-12-10] MEDS: SUCRALFATE 1 GM/10 ML UDCUP PO SCH ×4 (08:35→21:28)
[2019-12-10] MEDS: MENTHOL/ZINC OXIDE OINT 71 GM JAR TOP SCH (08:42)
[2019-12-10] MEDS: DOCUSATE SODIUM 100 MG CAPSULE PO SCH ×2 (08:42→21:28)
[2019-12-10] MEDS: MULTIVITAMIN (CENTRUM) TABLET PO SCH (08:42)
[2019-12-10] MEDS: ROSUVASTATIN 10 MG TABLET PO SCH (08:42)
[2019-12-10] MEDS: APIXABAN 2.5 MG TABLET PO SCH ×2 (08:42→21:28)
[2019-12-10] MEDS: PANTOPRAZOLE 40 MG VIAL IV SCH ×2 (08:43→21:34)
[2019-12-10] MEDS: FUROSEMIDE 40 MG/4 ML VIAL IV SCH (08:43)
[2019-12-10] MEDS: SILVER SULFADIAZINE 1% CREAM 25 GM TUBE TOP SCH ×2 (08:43→22:09)
[2019-12-10] MEDS: TAMSULOSIN 0.4 MG CAPSULE PO SCH ×2 (08:43→21:29)
[2019-12-10] MEDS: methylPREDNISolone SOD SUC 40 MG/1 ML VIAL IV SCH ×2 (08:43→21:31)
[2019-12-10] MEDS: SERTRALINE 25 MG TABLET PO SCH (08:49)
[2019-12-10] MEDS: METOPROLOL SUCCINATE XL 25 MG TABLET PO SCH (08:49)
[2019-12-10] MEDS: GANCICLOVIR IV SCH ×2 (10:03→22:08)
[2019-12-10] MEDS: SODIUM CHLORIDE 0.9% IV SCH ×2 (10:03→22:08)
[2019-12-10] MEDS: FLUCONAZOLE INJ 100 MG in IV BAG 1 EACH IV SCH (21:39)
[2019-12-11 07:17] LABS: Hematocrit 25.5 VOL% (42.0-52.0); Hemoglobin 8.3 GM/DL (14.0-18.0); Lymphocytes # 0.8 10*3/uL (1.4-4.0); Mean Corpuscular HGB Conc 32.5 GM/DL (32-36); Mean Corpuscular Volume 85.3 FL (87-102); Mean Platelet Volume 11.4 FL (9.6-12.0); Monocytes % 3.2 % (1.7-12.7); Neutrophils % 87.8 % (38.7-73.9); Platelet Count 131 T/CUMM (130-400); Red Blood Count 2.99 MC/CUMM (3.8-5.5); Red Cell Distribution Width 23.5 % (9.3-17.3); White Blood Count 9.7 T/CUMM (4-12)
[2019-12-11 07:33] LABS: Osmolality,Calculated 299.4 MOS/KG (273-304)
[2019-12-11 07:36] LABS: Hypochromasia 2+; Platelet Estimate Adequate
[2019-12-11] MEDS: PANTOPRAZOLE 40 MG VIAL IV SCH ×2 (08:21→22:10)
[2019-12-11] MEDS: INSULIN REGULAR 100 UNIT/ML SUBCUT SCH ×4 (08:22→22:10)
[2019-12-11] MEDS: FUROSEMIDE 40 MG/4 ML VIAL IV SCH (08:22)
[2019-12-11] MEDS: SERTRALINE 25 MG TABLET PO SCH (08:22)
[2019-12-11] MEDS: DOCUSATE SODIUM 100 MG CAPSULE PO SCH ×2 (08:22→22:10)
[2019-12-11] MEDS: SUCRALFATE 1 GM/10 ML UDCUP PO SCH ×4 (08:22→22:10)
[2019-12-11] MEDS: TAMSULOSIN 0.4 MG CAPSULE PO SCH ×2 (08:23→22:10)
[2019-12-11] MEDS: APIXABAN 2.5 MG TABLET PO SCH ×2 (08:23→22:10)
[2019-12-11] MEDS: SILVER SULFADIAZINE 1% CREAM 25 GM TUBE TOP SCH ×2 (08:23→22:12)
[2019-12-11] MEDS: MENTHOL/ZINC OXIDE OINT 71 GM JAR TOP SCH (08:23)
[2019-12-11] MEDS: ROSUVASTATIN 10 MG TABLET PO SCH (08:23)
[2019-12-11] MEDS: MULTIVITAMIN (CENTRUM) TABLET PO SCH (08:23)
[2019-12-11] MEDS: METOPROLOL SUCCINATE XL 25 MG TABLET PO SCH (08:27)
[2019-12-11] MEDS: methylPREDNISolone SOD SUC 40 MG/1 ML VIAL IV SCH ×2 (08:27→22:11)
[2019-12-11] MEDS: SODIUM CHLORIDE 0.9% IV SCH ×2 (08:30→23:37)
[2019-12-11] MEDS: GANCICLOVIR IV SCH ×2 (08:30→23:37)
[2019-12-11] MEDS: ACETAMINOPHEN 325 MG TABLET PO PRN (09:15)
[2019-12-11 14:21] LABS: Fungitell Quantitative Value < 31 pg/mL (<60 pg/mL)
[2019-12-11] MEDS: FLUCONAZOLE INJ 100 MG in IV BAG 1 EACH IV SCH (22:24)
[2019-12-12 05:48] LABS: Hematocrit 24.1 VOL% (42.0-52.0); Immature Granulocytes % 0.5 %; Immature Granulocytes Absolute 0.05 #; Lymphocytes # 0.7 10*3/uL (1.4-4.0); Lymphocytes % 7.3 % (21.2-54.2); Mean Corpuscular HGB Conc 33.2 GM/DL (32-36); Mean Corpuscular Volume 83.1 FL (87-102); Mean Platelet Volume 12.4 FL (9.6-12.0); Neutrophils % 90.2 % (38.7-73.9); Platelet Count 131 T/CUMM (130-400); Red Cell Distribution Width 23.2 % (9.3-17.3); White Blood Count 9.7 T/CUMM (4-12)
[2019-12-12 06:10] LABS: Bilirubin,Direct 0.27 MG/DL (0.0-0.20); Bilirubin,Indirect 0.5 MG/DL (0.0-1.0); Bilirubin,Total 0.8 MG/DL (0.2-1.0); Calcium 8.2 MG/DL (8.5-10.1); Osmolality,Calculated 290.8 MOS/KG (273-304); Total Protein 5.1 G/DL (6.4-8.3)
[2019-12-12 06:45] LABS: Hypochromasia 2+; Platelet Estimate Normal; Target Cells 1+
[2019-12-12] MEDS: SUCRALFATE 1 GM/10 ML UDCUP PO SCH ×4 (07:51→21:39)
[2019-12-12] MEDS: INSULIN REGULAR 100 UNIT/ML SUBCUT SCH ×4 (07:58→21:45)
[2019-12-12] MEDS: APIXABAN 2.5 MG TABLET PO SCH ×2 (09:33→21:39)
[2019-12-12] MEDS: MULTIVITAMIN (CENTRUM) TABLET PO SCH (09:34)
[2019-12-12] MEDS: ROSUVASTATIN 10 MG TABLET PO SCH (09:34)
[2019-12-12] MEDS: TAMSULOSIN 0.4 MG CAPSULE PO SCH ×2 (09:34→21:39)
[2019-12-12] MEDS: SERTRALINE 25 MG TABLET PO SCH (09:34)
[2019-12-12] MEDS: DOCUSATE SODIUM 100 MG CAPSULE PO SCH ×2 (09:35→21:39)
[2019-12-12] MEDS: POTASSIUM CHLORIDE 20 MEQ/15 ML UDCUP PER TUBE PRN ×4 (09:35→18:30)
[2019-12-12] MEDS: METOPROLOL SUCCINATE XL 25 MG TABLET PO SCH (09:35)
[2019-12-12] MEDS: FUROSEMIDE 40 MG/4 ML VIAL IV SCH (09:36)
[2019-12-12] MEDS: methylPREDNISolone SOD SUC 40 MG/1 ML VIAL IV SCH ×2 (09:37→21:46)
[2019-12-12] MEDS: SODIUM CHLORIDE 0.9% IV SCH ×2 (09:38→21:48)
[2019-12-12] MEDS: GANCICLOVIR IV SCH ×2 (09:38→21:48)
[2019-12-12] MEDS: PANTOPRAZOLE 40 MG VIAL IV SCH ×2 (09:38→21:40)
[2019-12-12] MEDS: MENTHOL/ZINC OXIDE OINT 71 GM JAR TOP SCH (09:49)
[2019-12-12] MEDS: SILVER SULFADIAZINE 1% CREAM 25 GM TUBE TOP SCH ×2 (09:49→21:43)
[2019-12-12] MEDS ORDERED: methylPREDNISolone SOD SUC 40 MG/1 ML VIAL IV SCH (14:35)
[2019-12-13] MEDS: APIXABAN 2.5 MG TABLET PO SCH ×2 (09:23→21:04)
[2019-12-13] MEDS: ROSUVASTATIN 10 MG TABLET PO SCH (09:23)
[2019-12-13] MEDS: TAMSULOSIN 0.4 MG CAPSULE PO SCH ×2 (09:23→21:04)
[2019-12-13] MEDS: METOPROLOL SUCCINATE XL 25 MG TABLET PO SCH (09:23)
[2019-12-13] MEDS: SUCRALFATE 1 GM/10 ML UDCUP PO SCH ×4 (09:23→21:03)
[2019-12-13] MEDS: MULTIVITAMIN (CENTRUM) TABLET PO SCH (09:23)
[2019-12-13] MEDS: SERTRALINE 25 MG TABLET PO SCH (09:23)
[2019-12-13] MEDS: FUROSEMIDE 40 MG/4 ML VIAL IV SCH (09:24)
[2019-12-13] MEDS: INSULIN REGULAR 100 UNIT/ML SUBCUT SCH ×4 (09:24→21:03)
[2019-12-13] MEDS: PANTOPRAZOLE 40 MG VIAL IV SCH ×2 (09:24→21:03)
[2019-12-13] MEDS: methylPREDNISolone SOD SUC 40 MG/1 ML VIAL IV SCH (09:25)
[2019-12-13] MEDS: SODIUM CHLORIDE 0.9% IV SCH ×2 (09:25→21:12)
[2019-12-13] MEDS: GANCICLOVIR IV SCH ×2 (09:25→21:12)
[2019-12-13] MEDS: DOCUSATE SODIUM 100 MG CAPSULE PO SCH ×2 (09:26→21:04)
[2019-12-13] MEDS: MENTHOL/ZINC OXIDE OINT 71 GM JAR TOP SCH (09:26)
[2019-12-13] MEDS: SILVER SULFADIAZINE 1% CREAM 25 GM TUBE TOP SCH ×2 (09:26→21:11)
[2019-12-13] MEDS: predniSONE 20 MG TABLET PO SCH (11:55)
[2019-12-14] MEDS: SUCRALFATE 1 GM/10 ML UDCUP PO SCH ×4 (10:17→20:54)
[2019-12-14] MEDS: MULTIVITAMIN (CENTRUM) TABLET PO SCH (10:17)
[2019-12-14] MEDS: predniSONE 20 MG TABLET PO SCH (10:17)
[2019-12-14] MEDS: DOCUSATE SODIUM 100 MG CAPSULE PO SCH ×2 (10:17→20:54)
[2019-12-14] MEDS: INSULIN REGULAR 100 UNIT/ML SUBCUT SCH ×4 (10:17→20:53)
[2019-12-14] MEDS: APIXABAN 2.5 MG TABLET PO SCH ×2 (10:18→20:54)
[2019-12-14] MEDS: SERTRALINE 25 MG TABLET PO SCH (10:18)
[2019-12-14] MEDS: TAMSULOSIN 0.4 MG CAPSULE PO SCH ×2 (10:18→20:54)
[2019-12-14] MEDS: METOPROLOL SUCCINATE XL 25 MG TABLET PO SCH (10:18)
[2019-12-14] MEDS: PANTOPRAZOLE 40 MG VIAL IV SCH ×2 (10:19→20:48)
[2019-12-14] MEDS: ROSUVASTATIN 10 MG TABLET PO SCH (10:19)
[2019-12-14] MEDS: FUROSEMIDE 40 MG/4 ML VIAL IV SCH (10:19)
[2019-12-14] MEDS: GANCICLOVIR IV SCH ×2 (10:20→20:52)
[2019-12-14] MEDS: MENTHOL/ZINC OXIDE OINT 71 GM JAR TOP SCH (10:20)
[2019-12-14] MEDS: SODIUM CHLORIDE 0.9% IV SCH ×2 (10:20→20:52)
[2019-12-14] MEDS: SILVER SULFADIAZINE 1% CREAM 25 GM TUBE TOP SCH ×2 (10:20→21:01)
[2019-12-15 05:52] LABS: Hematocrit 24.1 VOL% (42.0-52.0); Hemoglobin 7.6 GM/DL (14.0-18.0); Immature Granulocytes % 0.7 %; Immature Granulocytes Absolute 0.05 #; Lymphocytes % 13.5 % (21.2-54.2); Mean Corpuscular HGB Conc 31.5 GM/DL (32-36); Mean Corpuscular Volume 89.3 FL (87-102); Monocytes % 3.2 % (1.7-12.7); Neutrophils % 82.6 % (38.7-73.9); Platelet Count 102 T/CUMM (130-400); Red Cell Distribution Width 23.9 % (9.3-17.3); White Blood Count 7.2 T/CUMM (4-12)
[2019-12-15 06:14] LABS: Calcium 7.9 MG/DL (8.5-10.1); Osmolality,Calculated 291.8 MOS/KG (273-304)
[2019-12-15 07:56] LABS: Anisocytosis 1+; Macrocytosis 1+; Platelet Estimate Adequate; Target Cells Few
[2019-12-15] MEDS ORDERED: POTASSIUM CHLORIDE RIDER 10 MEQ in PREMIX 1 EACH IV PRN (08:38)
[2019-12-15] MEDS: GANCICLOVIR IV SCH ×2 (09:24→21:08)
[2019-12-15] MEDS: SODIUM CHLORIDE 0.9% IV SCH ×2 (09:24→21:08)
[2019-12-15] MEDS: TAMSULOSIN 0.4 MG CAPSULE PO SCH ×2 (09:24→21:11)
[2019-12-15] MEDS: SERTRALINE 25 MG TABLET PO SCH (09:25)
[2019-12-15] MEDS: APIXABAN 2.5 MG TABLET PO SCH ×2 (09:25→21:11)
[2019-12-15] MEDS: ROSUVASTATIN 10 MG TABLET PO SCH (09:25)
[2019-12-15] MEDS: POTASSIUM CHLORIDE 20 MEQ/15 ML UDCUP PER TUBE PRN ×3 (09:25→15:56)
[2019-12-15] MEDS: MULTIVITAMIN (CENTRUM) TABLET PO SCH (09:25)
[2019-12-15] MEDS: predniSONE 20 MG TABLET PO SCH (09:25)
[2019-12-15] MEDS: METOPROLOL SUCCINATE XL 25 MG TABLET PO SCH (09:25)
[2019-12-15] MEDS: DOCUSATE SODIUM 100 MG CAPSULE PO SCH ×2 (09:25→21:11)
[2019-12-15] MEDS: INSULIN REGULAR 100 UNIT/ML SUBCUT SCH ×4 (09:26→21:10)
[2019-12-15] MEDS: SUCRALFATE 1 GM/10 ML UDCUP PO SCH ×4 (09:26→21:11)
[2019-12-15] MEDS: FUROSEMIDE 40 MG/4 ML VIAL IV SCH (09:26)
[2019-12-15] MEDS: PANTOPRAZOLE 40 MG VIAL IV SCH ×2 (09:26→21:06)
[2019-12-15] MEDS: MENTHOL/ZINC OXIDE OINT 71 GM JAR TOP SCH (09:26)
[2019-12-15] MEDS: SILVER SULFADIAZINE 1% CREAM 25 GM TUBE TOP SCH (09:27)
[2019-12-15 22:44] LABS: Hematocrit 24.5 VOL% (42.0-52.0); Hemoglobin 7.7 GM/DL (14.0-18.0)
[2019-12-16 04:18] LABS: Basophils % 0.1 % (0.0-0.8); Eosinophils % 0.5 % (0.00-10.9); Hematocrit 24.3 VOL% (42.0-52.0); Hemoglobin 7.7 GM/DL (14.0-18.0); Immature Granulocytes % 0.6 %; Immature Granulocytes Absolute 0.05 #; Lymphocytes # 1.6 10*3/uL (1.4-4.0); Lymphocytes % 19.1 % (21.2-54.2); Mean Corpuscular HGB Conc 31.7 GM/DL (32-36); Mean Corpuscular Volume 88.4 FL (87-102); Monocytes % 4.7 % (1.7-12.7); Platelet Count 145 T/CUMM (130-400); Red Blood Count 2.75 MC/CUMM (3.8-5.5); Red Cell Distribution Width 24.4 % (9.3-17.3); White Blood Count 8.3 T/CUMM (4-12)
[2019-12-16 04:44] LABS: Bilirubin,Total 0.5 MG/DL (0.2-1.0); Calcium 7.9 MG/DL (8.5-10.1); Osmolality,Calculated 286.4 MOS/KG (273-304); Total Protein 4.9 G/DL (6.4-8.3)
[2019-12-16] MEDS: INSULIN REGULAR 100 UNIT/ML SUBCUT SCH ×4 (08:59→20:59)
[2019-12-16] MEDS: FUROSEMIDE 40 MG/4 ML VIAL IV SCH (09:01)
[2019-12-16] MEDS: PANTOPRAZOLE 40 MG VIAL IV SCH ×2 (09:01→20:59)
[2019-12-16] MEDS: METOPROLOL SUCCINATE XL 25 MG TABLET PO SCH (09:01)
[2019-12-16] MEDS: predniSONE 20 MG TABLET PO SCH (09:02)
[2019-12-16] MEDS: SUCRALFATE 1 GM/10 ML UDCUP PO SCH ×4 (09:02→20:58)
[2019-12-16] MEDS: MULTIVITAMIN (CENTRUM) TABLET PO SCH (09:02)
[2019-12-16] MEDS: TAMSULOSIN 0.4 MG CAPSULE PO SCH ×2 (09:02→20:58)
[2019-12-16] MEDS: APIXABAN 2.5 MG TABLET PO SCH ×2 (09:02→20:59)
[2019-12-16] MEDS: ROSUVASTATIN 10 MG TABLET PO SCH (09:02)
[2019-12-16] MEDS: DOCUSATE SODIUM 100 MG CAPSULE PO SCH ×2 (09:03→20:59)
[2019-12-16] MEDS: GANCICLOVIR IV SCH ×2 (09:03→20:58)
[2019-12-16] MEDS: SERTRALINE 25 MG TABLET PO SCH (09:03)
[2019-12-16] MEDS: SODIUM CHLORIDE 0.9% IV SCH ×2 (09:03→20:58)
[2019-12-16] MEDS: MENTHOL/ZINC OXIDE OINT 71 GM JAR TOP SCH (09:04)
[2019-12-17] MEDS: FUROSEMIDE 40 MG/4 ML VIAL IV SCH (08:26)
[2019-12-17] MEDS: SUCRALFATE 1 GM/10 ML UDCUP PO SCH ×4 (08:27→21:03)
[2019-12-17] MEDS: DOCUSATE SODIUM 100 MG CAPSULE PO SCH ×2 (08:27→21:04)
[2019-12-17] MEDS: predniSONE 20 MG TABLET PO SCH (08:27)
[2019-12-17] MEDS: MULTIVITAMIN (CENTRUM) TABLET PO SCH (08:27)
[2019-12-17] MEDS: TAMSULOSIN 0.4 MG CAPSULE PO SCH ×2 (08:27→21:04)
[2019-12-17] MEDS: ROSUVASTATIN 10 MG TABLET PO SCH (08:27)
[2019-12-17] MEDS: SERTRALINE 25 MG TABLET PO SCH (08:28)
[2019-12-17] MEDS: APIXABAN 2.5 MG TABLET PO SCH ×2 (08:28→21:03)
[2019-12-17] MEDS: ACETAMINOPHEN 325 MG TABLET PO PRN (08:28)
[2019-12-17] MEDS: PANTOPRAZOLE 40 MG VIAL IV SCH ×2 (08:28→21:05)
[2019-12-17] MEDS: METOPROLOL SUCCINATE XL 25 MG TABLET PO SCH (08:29)
[2019-12-17] MEDS: INSULIN REGULAR 100 UNIT/ML SUBCUT SCH ×4 (11:17→21:04)
[2019-12-17] MEDS: GANCICLOVIR IV SCH (11:27)
[2019-12-17] MEDS: SODIUM CHLORIDE 0.9% IV SCH (11:27)
[2019-12-17] MEDS: MENTHOL/ZINC OXIDE OINT 71 GM JAR TOP SCH (18:36)
[2019-12-18 03:10] LABS: Basophils % 0.1 % (0.0-0.8); Eosinophils % 0.2 % (0.00-10.9); Hematocrit 23.7 VOL% (42.0-52.0); Hemoglobin 7.8 GM/DL (14.0-18.0); Immature Granulocytes % 1.2 %; Immature Granulocytes Absolute 0.28 #; Lymphocytes # 1.6 10*3/uL (1.4-4.0); Mean Corpuscular HGB Conc 32.9 GM/DL (32-36); Mean Corpuscular Volume 85.9 FL (87-102); Mean Platelet Volume 12.3 FL (9.6-12.0); Monocytes % 2.2 % (1.7-12.7); Neutrophils % 89.3 % (38.7-73.9); Platelet Count 117 T/CUMM (130-400); Red Blood Count 2.76 MC/CUMM (3.8-5.5); Red Cell Distribution Width 24.6 % (9.3-17.3); White Blood Count 23.4 T/CUMM (4-12)
[2019-12-18 03:31] LABS: Albumin 1.7 G/DL (3.4-5.0); Bilirubin,Total 0.5 MG/DL (0.2-1.0); Calcium 7.5 MG/DL (8.5-10.1); Osmolality,Calculated 283.3 MOS/KG (273-304); Total Protein 4.7 G/DL (6.4-8.3)
[2019-12-18 04:03] LABS: Band Neutrophils 1 % (0-10); Lymphocytes 10 % (20-55); Segmented Neutrophils 87 % (50-85); Total Cells Counted 100
[2019-12-18 04:04] LABS: Anisocytosis 1+; Hypochromasia 1+; Platelet Estimate Adequate; Target Cells 1+
[2019-12-18 05:53] LABS: Calcium 7.4 MG/DL (8.5-10.1); Osmolality,Calculated 284.3 MOS/KG (273-304)
[2019-12-18] MEDS: POTASSIUM CHLORIDE RIDER 10 MEQ in PREMIX 1 EACH IV PRN (06:39)
[2019-12-18] MEDS: INSULIN REGULAR 100 UNIT/ML SUBCUT SCH ×4 (10:10→20:42)
[2019-12-18] MEDS: DOCUSATE SODIUM 100 MG CAPSULE PO SCH ×2 (10:11→20:38)
[2019-12-18] MEDS: predniSONE 20 MG TABLET PO SCH (10:11)
[2019-12-18] MEDS: METOPROLOL SUCCINATE XL 25 MG TABLET PO SCH (10:12)
[2019-12-18] MEDS: TAMSULOSIN 0.4 MG CAPSULE PO SCH ×2 (10:12→20:37)
[2019-12-18] MEDS: APIXABAN 2.5 MG TABLET PO SCH ×2 (10:12→20:38)
[2019-12-18] MEDS: SERTRALINE 25 MG TABLET PO SCH (10:12)
[2019-12-18] MEDS: MULTIVITAMIN (CENTRUM) TABLET PO SCH (10:12)
[2019-12-18] MEDS: ROSUVASTATIN 10 MG TABLET PO SCH (10:12)
[2019-12-18] MEDS: FUROSEMIDE 40 MG/4 ML VIAL IV SCH (10:12)
[2019-12-18] MEDS: POTASSIUM CHLORIDE 20 MEQ/15 ML UDCUP PER TUBE PRN ×4 (10:13→19:04)
[2019-12-18] MEDS: SUCRALFATE 1 GM/10 ML UDCUP PO SCH ×4 (10:13→20:39)
[2019-12-18] MEDS: PANTOPRAZOLE 40 MG VIAL IV SCH ×2 (10:19→20:40)
[2019-12-18] MEDS: MENTHOL/ZINC OXIDE OINT 71 GM JAR TOP SCH (10:20)
[2019-12-18] MEDS: POTASSIUM CHLORIDE 20 MEQ/15 ML UDCUP PO SCH (22:25)
[2019-12-19] MEDS: predniSONE 20 MG TABLET PO SCH (08:37)
[2019-12-19] MEDS: SUCRALFATE 1 GM/10 ML UDCUP PO SCH ×4 (08:37→22:19)
[2019-12-19] MEDS: METOPROLOL SUCCINATE XL 25 MG TABLET PO SCH (08:37)
[2019-12-19] MEDS: MULTIVITAMIN (CENTRUM) TABLET PO SCH (08:37)
[2019-12-19] MEDS: ROSUVASTATIN 10 MG TABLET PO SCH (08:37)
[2019-12-19] MEDS: TAMSULOSIN 0.4 MG CAPSULE PO SCH ×2 (08:38→22:20)
[2019-12-19] MEDS: SERTRALINE 25 MG TABLET PO SCH (08:38)
[2019-12-19] MEDS: FUROSEMIDE 40 MG/4 ML VIAL IV SCH (08:38)
[2019-12-19] MEDS: APIXABAN 2.5 MG TABLET PO SCH ×2 (08:38→22:20)
[2019-12-19] MEDS: INSULIN REGULAR 100 UNIT/ML SUBCUT SCH ×5 (08:38→22:43)
[2019-12-19] MEDS: PANTOPRAZOLE 40 MG VIAL IV SCH ×2 (08:39→22:19)
[2019-12-19] MEDS: MENTHOL/ZINC OXIDE OINT 71 GM JAR TOP SCH (08:39)
[2019-12-19] MEDS: POTASSIUM CHLORIDE 20 MEQ/15 ML UDCUP PO SCH ×2 (08:41→22:20)
[2019-12-19] MEDS: DOCUSATE SODIUM 100 MG CAPSULE PO SCH ×2 (08:42→22:19)
[2019-12-19 14:55] LABS: Apearance,Urine CLEAR (Clear); Bilirubin,Urine Negative (Negative); Blood, Urine Negative (Negative); Glucose,Urine (UA) 50 mg/dL (Negative); Hyaline Casts,Urine 4 /LPF (0-3); Ketones,Urine Negative (Negative); Nitrite,Urine Negative (Negative); Protein,Urine Negative; RBC,Urine 2 /HPF (0-4); Squamous Epithelial Cell,Urine Occasional /HPF (0-10); Urine Color Yellow (Yellow); Urine Specific Gravity 1.008 (1.001-1.035); Urine Urobilinogen < 2.0 EU/DL (0.2-1.0); WBC,Urine 29 /HPF (0-6)
[2019-12-20] MEDS: INSULIN REGULAR 100 UNIT/ML SUBCUT SCH ×4 (08:00→20:51)
[2019-12-20] MEDS: predniSONE 20 MG TABLET PO SCH (08:56)
[2019-12-20] MEDS: SERTRALINE 25 MG TABLET PO SCH (08:56)
[2019-12-20] MEDS: METOPROLOL SUCCINATE XL 25 MG TABLET PO SCH (08:57)
[2019-12-20] MEDS: APIXABAN 2.5 MG TABLET PO SCH ×2 (08:57→20:39)
[2019-12-20] MEDS: POTASSIUM CHLORIDE 20 MEQ/15 ML UDCUP PO SCH ×2 (08:57→20:39)
[2019-12-20] MEDS: DOCUSATE SODIUM 100 MG CAPSULE PO SCH ×2 (08:57→20:39)
[2019-12-20] MEDS: TAMSULOSIN 0.4 MG CAPSULE PO SCH ×2 (08:57→20:39)
[2019-12-20] MEDS: FUROSEMIDE 40 MG/4 ML VIAL IV SCH (08:57)
[2019-12-20] MEDS: MULTIVITAMIN (CENTRUM) TABLET PO SCH (08:57)
[2019-12-20] MEDS: ROSUVASTATIN 10 MG TABLET PO SCH (08:57)
[2019-12-20] MEDS: SUCRALFATE 1 GM/10 ML UDCUP PO SCH ×4 (08:58→20:40)
[2019-12-20] MEDS: PANTOPRAZOLE 40 MG VIAL IV SCH ×2 (08:58→20:40)
[2019-12-20] MEDS: MENTHOL/ZINC OXIDE OINT 71 GM JAR TOP SCH (09:00)
[2019-12-21 05:42] LABS: Basophils % 0.1 % (0.0-0.8); Eosinophils # 0.1 10*3/uL (0.0-0.87); Eosinophils % 0.5 % (0.00-10.9); Hematocrit 23.3 VOL% (42.0-52.0); Hemoglobin 7.6 GM/DL (14.0-18.0); Immature Granulocytes % 0.5 %; Immature Granulocytes Absolute 0.06 #; Lymphocytes # 1.7 10*3/uL (1.4-4.0); Lymphocytes % 14.9 % (21.2-54.2); Mean Corpuscular HGB Conc 32.6 GM/DL (32-36); Mean Corpuscular Volume 87.6 FL (87-102); Mean Platelet Volume 11.5 FL (9.6-12.0); Platelet Count 164 T/CUMM (130-400); Red Blood Count 2.66 MC/CUMM (3.8-5.5); Red Cell Distribution Width 24.3 % (9.3-17.3); White Blood Count 11.3 T/CUMM (4-12)
[2019-12-21 06:14] LABS: Albumin 1.8 G/DL (3.4-5.0); Bilirubin,Direct 0.18 MG/DL (0.0-0.20); Bilirubin,Indirect 0.2 MG/DL (0.0-1.0); Bilirubin,Total 0.4 MG/DL (0.2-1.0); Calcium 7.6 MG/DL (8.5-10.1); Osmolality,Calculated 279.4 MOS/KG (273-304); Total Protein 4.8 G/DL (6.4-8.3)
[2019-12-21] MEDS: MAGNESIUM SULF RIDER 2 GM in PREMIX 1 EACH IV PRN (06:25)
[2019-12-21 06:33] LABS: Acanthocytes Few; Anisocytosis 1+; Hypochromasia 1+; Microcytosis 1+; Ovalocytes Slight; Target Cells Slight
[2019-12-21 06:34] LABS: Platelet Estimate Adequate
[2019-12-21] MEDS: INSULIN REGULAR 100 UNIT/ML SUBCUT SCH ×4 (08:35→20:35)
[2019-12-21] MEDS: PANTOPRAZOLE 40 MG VIAL IV SCH ×2 (09:58→20:12)
[2019-12-21] MEDS: POTASSIUM CHLORIDE 20 MEQ/15 ML UDCUP PO SCH ×2 (09:58→20:11)
[2019-12-21] MEDS: FUROSEMIDE 40 MG/4 ML VIAL IV SCH (09:58)
[2019-12-21] MEDS: DOCUSATE SODIUM 100 MG CAPSULE PO SCH ×2 (09:58→20:12)
[2019-12-21] MEDS: METOPROLOL SUCCINATE XL 25 MG TABLET PO SCH (09:58)
[2019-12-21] MEDS: SUCRALFATE 1 GM/10 ML UDCUP PO SCH ×4 (09:58→20:11)
[2019-12-21] MEDS: MULTIVITAMIN (CENTRUM) TABLET PO SCH (09:59)
[2019-12-21] MEDS: ROSUVASTATIN 10 MG TABLET PO SCH (09:59)
[2019-12-21] MEDS: predniSONE 20 MG TABLET PO SCH (09:59)
[2019-12-21] MEDS: SERTRALINE 25 MG TABLET PO SCH (09:59)
[2019-12-21] MEDS: TAMSULOSIN 0.4 MG CAPSULE PO SCH ×2 (09:59→20:11)
[2019-12-21] MEDS: APIXABAN 2.5 MG TABLET PO SCH ×2 (09:59→20:12)
[2019-12-21] MEDS: MENTHOL/ZINC OXIDE OINT 71 GM JAR TOP SCH (10:00)
[2019-12-21] MEDS: LEVOFLOXACIN INJ 750 MG in PREMIX 1 EACH IV SCH (20:11)
[2019-12-22] MEDS: INSULIN REGULAR 100 UNIT/ML SUBCUT SCH ×4 (07:38→20:45)
[2019-12-22] MEDS: predniSONE 20 MG TABLET PO SCH (09:24)
[2019-12-22] MEDS: SUCRALFATE 1 GM/10 ML UDCUP PO SCH ×4 (09:24→20:36)
[2019-12-22] MEDS: APIXABAN 2.5 MG TABLET PO SCH ×2 (09:24→20:36)
[2019-12-22] MEDS: DOCUSATE SODIUM 100 MG CAPSULE PO SCH ×2 (09:24→20:36)
[2019-12-22] MEDS: POTASSIUM CHLORIDE 20 MEQ/15 ML UDCUP PO SCH ×2 (09:24→20:36)
[2019-12-22] MEDS: SERTRALINE 25 MG TABLET PO SCH (09:24)
[2019-12-22] MEDS: METOPROLOL SUCCINATE XL 25 MG TABLET PO SCH (09:24)
[2019-12-22] MEDS: ROSUVASTATIN 10 MG TABLET PO SCH (09:24)
[2019-12-22] MEDS: MULTIVITAMIN (CENTRUM) TABLET PO SCH (09:24)
[2019-12-22] MEDS: FUROSEMIDE 40 MG/4 ML VIAL IV SCH (09:25)
[2019-12-22] MEDS: PANTOPRAZOLE 40 MG VIAL IV SCH ×2 (09:25→20:35)
[2019-12-22] MEDS: TAMSULOSIN 0.4 MG CAPSULE PO SCH ×2 (09:25→20:36)
[2019-12-22] MEDS: MENTHOL/ZINC OXIDE OINT 71 GM JAR TOP SCH (09:26)
[2019-12-22] MEDS: LEVOFLOXACIN INJ 750 MG in PREMIX 1 EACH IV SCH (20:35)
[2019-12-22] MEDS: ZALEPLON 5 MG CAPSULE PO PRN (20:36)
[2019-12-23] MEDS: FUROSEMIDE 40 MG/4 ML VIAL IV SCH (10:20)
[2019-12-23] MEDS: PANTOPRAZOLE 40 MG VIAL IV SCH ×2 (10:23→22:11)
[2019-12-23] MEDS: METOPROLOL SUCCINATE XL 25 MG TABLET PO SCH (10:25)
[2019-12-23] MEDS: ROSUVASTATIN 10 MG TABLET PO SCH (10:26)
[2019-12-23] MEDS: TAMSULOSIN 0.4 MG CAPSULE PO SCH ×2 (10:26→22:09)
[2019-12-23] MEDS: DOCUSATE SODIUM 100 MG CAPSULE PO SCH ×2 (10:26→22:08)
[2019-12-23] MEDS: predniSONE 20 MG TABLET PO SCH (10:28)
[2019-12-23] MEDS: MULTIVITAMIN (CENTRUM) TABLET PO SCH (10:31)
[2019-12-23] MEDS: APIXABAN 2.5 MG TABLET PO SCH ×2 (10:31→22:09)
[2019-12-23] MEDS: POTASSIUM CHLORIDE 20 MEQ/15 ML UDCUP PO SCH ×2 (10:35→22:10)
[2019-12-23] MEDS: SUCRALFATE 1 GM/10 ML UDCUP PO SCH ×4 (10:35→22:10)
[2019-12-23] MEDS: INSULIN REGULAR 100 UNIT/ML SUBCUT SCH ×4 (10:37→22:10)
[2019-12-23] MEDS: SERTRALINE 25 MG TABLET PO SCH (10:39)
[2019-12-23] MEDS: MENTHOL/ZINC OXIDE OINT 71 GM JAR TOP SCH (11:21)
[2019-12-23] MEDS: LEVOFLOXACIN INJ 750 MG in PREMIX 1 EACH IV SCH (22:09)
[2019-12-23] MEDS: ZALEPLON 5 MG CAPSULE PO PRN (22:19)
[2019-12-24 05:53] LABS: Eosinophils % 0.2 % (0.00-10.9); Hematocrit 20.5 VOL% (42.0-52.0); Hemoglobin 6.8 GM/DL (14.0-18.0); Immature Granulocytes % 0.6 %; Immature Granulocytes Absolute 0.04 #; Lymphocytes # 1.1 10*3/uL (1.4-4.0); Lymphocytes % 16.8 % (21.2-54.2); Mean Corpuscular HGB Conc 33.2 GM/DL (32-36); Mean Corpuscular Volume 86.5 FL (87-102); Mean Platelet Volume 11.9 FL (9.6-12.0); Monocytes % 1.9 % (1.7-12.7); Neutrophils % 80.5 % (38.7-73.9); Platelet Count 171 T/CUMM (130-400); Red Blood Count 2.37 MC/CUMM (3.8-5.5); Red Cell Distribution Width 24.7 % (9.3-17.3); White Blood Count 6.5 T/CUMM (4-12)
[2019-12-24 06:06] LABS: Calcium 7.6 MG/DL (8.5-10.1); Osmolality,Calculated 273.7 MOS/KG (273-304)
[2019-12-24 06:33] LABS: Hypochromasia 2+; Microcytosis Slight; Platelet Estimate Adequate
[2019-12-24] MEDS: INSULIN REGULAR 100 UNIT/ML SUBCUT SCH ×4 (07:40→21:41)
[2019-12-24] MEDS: SUCRALFATE 1 GM/10 ML UDCUP PO SCH ×4 (09:37→21:35)
[2019-12-24] MEDS: FUROSEMIDE 40 MG/4 ML VIAL IV SCH (09:37)
[2019-12-24] MEDS: predniSONE 20 MG TABLET PO SCH (09:38)
[2019-12-24] MEDS: POTASSIUM CHLORIDE 20 MEQ/15 ML UDCUP PO SCH ×2 (09:38→21:35)
[2019-12-24] MEDS: SERTRALINE 25 MG TABLET PO SCH (09:39)
[2019-12-24] MEDS: MULTIVITAMIN (CENTRUM) TABLET PO SCH (09:39)
[2019-12-24] MEDS: MENTHOL/ZINC OXIDE OINT 71 GM JAR TOP SCH (09:39)
[2019-12-24] MEDS: APIXABAN 2.5 MG TABLET PO SCH ×2 (09:39→21:34)
[2019-12-24] MEDS: ROSUVASTATIN 10 MG TABLET PO SCH (09:39)
[2019-12-24] MEDS: TAMSULOSIN 0.4 MG CAPSULE PO SCH ×2 (09:39→21:34)
[2019-12-24] MEDS: METOPROLOL SUCCINATE XL 25 MG TABLET PO SCH (09:39)
[2019-12-24] MEDS: DOCUSATE SODIUM 100 MG CAPSULE PO SCH ×2 (09:39→22:12)
[2019-12-24] MEDS: PANTOPRAZOLE 40 MG VIAL IV SCH ×2 (09:42→21:39)
[2019-12-24] MEDS ORDERED: SODIUM CHLORIDE 0.9% 1,000 ML IV PRN (16:02)
[2019-12-24] MEDS ORDERED: FUROSEMIDE 40 MG/4 ML VIAL IV ONE (16:19)
[2019-12-24] MEDS: ZALEPLON 5 MG CAPSULE PO PRN (21:35)
[2019-12-24] MEDS: LEVOFLOXACIN INJ 750 MG in PREMIX 1 EACH IV SCH (21:41)
[2019-12-25] MEDS: INSULIN REGULAR 100 UNIT/ML SUBCUT SCH ×4 (08:52→20:00)
[2019-12-25] MEDS: DOCUSATE SODIUM 100 MG CAPSULE PO SCH ×2 (09:45→20:00)
[2019-12-25] MEDS: METOPROLOL SUCCINATE XL 25 MG TABLET PO SCH (09:45)
[2019-12-25] MEDS: ROSUVASTATIN 10 MG TABLET PO SCH (09:45)
[2019-12-25] MEDS: SERTRALINE 25 MG TABLET PO SCH (09:45)
[2019-12-25] MEDS: MULTIVITAMIN (CENTRUM) TABLET PO SCH (09:45)
[2019-12-25] MEDS: APIXABAN 2.5 MG TABLET PO SCH ×2 (09:45→20:00)
[2019-12-25] MEDS: FUROSEMIDE 40 MG/4 ML VIAL IV SCH (09:46)
[2019-12-25] MEDS: PANTOPRAZOLE 40 MG VIAL IV SCH ×2 (09:46→20:01)
[2019-12-25] MEDS: SUCRALFATE 1 GM/10 ML UDCUP PO SCH ×4 (09:46→20:01)
[2019-12-25] MEDS: predniSONE 20 MG TABLET PO SCH (09:46)
[2019-12-25] MEDS: TAMSULOSIN 0.4 MG CAPSULE PO SCH ×2 (09:46→20:00)
[2019-12-25] MEDS: POTASSIUM CHLORIDE 20 MEQ/15 ML UDCUP PO SCH ×2 (09:46→20:01)
[2019-12-25] MEDS: MENTHOL/ZINC OXIDE OINT 71 GM JAR TOP SCH (09:47)
[2019-12-25 10:10] LABS: Eosinophils % 0.6 % (0.00-10.9); Hematocrit 31.1 VOL% (42.0-52.0); Immature Granulocytes Absolute 0.06 #; Lymphocytes # 0.6 10*3/uL (1.4-4.0); Lymphocytes % 10.2 % (21.2-54.2); Mean Corpuscular HGB Conc 33.1 GM/DL (32-36); Mean Corpuscular Volume 87.6 FL (87-102); Mean Platelet Volume 11.7 FL (9.6-12.0); Monocytes % 0.6 % (1.7-12.7); Neutrophils % 87.6 % (38.7-73.9); Platelet Count 184 T/CUMM (130-400); Red Blood Count 3.55 MC/CUMM (3.8-5.5); Red Cell Distribution Width 21.2 % (9.3-17.3); White Blood Count 6.2 T/CUMM (4-12)
[2019-12-25 10:11] LABS: Hemoglobin 10.3 GM/DL (14.0-18.0)
[2019-12-25 10:28] LABS: Albumin 2.1 G/DL (3.4-5.0); Bilirubin,Total 0.7 MG/DL (0.2-1.0); Calcium 7.6 MG/DL (8.5-10.1); Osmolality,Calculated 285.7 MOS/KG (273-304); Total Protein 5.2 G/DL (6.4-8.3)
[2019-12-25] MEDS: LEVOFLOXACIN INJ 750 MG in PREMIX 1 EACH IV SCH (19:59)
[2019-12-25] MEDS: ZALEPLON 5 MG CAPSULE PO PRN (19:59)
[2019-12-26] MEDS: INSULIN REGULAR 100 UNIT/ML SUBCUT SCH ×4 (07:32→20:59)
[2019-12-26] MEDS: FUROSEMIDE 40 MG/4 ML VIAL IV SCH (09:07)
[2019-12-26] MEDS: PANTOPRAZOLE 40 MG VIAL IV SCH ×2 (09:07→20:59)
[2019-12-26] MEDS: POTASSIUM CHLORIDE 20 MEQ/15 ML UDCUP PO SCH ×2 (09:07→20:58)
[2019-12-26] MEDS: SERTRALINE 25 MG TABLET PO SCH (09:08)
[2019-12-26] MEDS: predniSONE 20 MG TABLET PO SCH (09:08)
[2019-12-26] MEDS: MULTIVITAMIN (CENTRUM) TABLET PO SCH (09:08)
[2019-12-26] MEDS: ROSUVASTATIN 10 MG TABLET PO SCH (09:08)
[2019-12-26] MEDS: TAMSULOSIN 0.4 MG CAPSULE PO SCH ×2 (09:08→20:59)
[2019-12-26] MEDS: METOPROLOL SUCCINATE XL 25 MG TABLET PO SCH (09:08)
[2019-12-26] MEDS: DOCUSATE SODIUM 100 MG CAPSULE PO SCH ×2 (09:09→21:00)
[2019-12-26] MEDS: MENTHOL/ZINC OXIDE OINT 71 GM JAR TOP SCH (09:09)
[2019-12-26] MEDS: SUCRALFATE 1 GM/10 ML UDCUP PO SCH ×4 (09:09→20:58)
[2019-12-26] MEDS: APIXABAN 2.5 MG TABLET PO SCH ×2 (09:09→20:59)
[2019-12-26] MEDS: FUROSEMIDE 20 MG TABLET PO SCH (16:32)
[2019-12-26] MEDS: LEVOFLOXACIN INJ 750 MG in PREMIX 1 EACH IV SCH (20:58)
[2019-12-26] MEDS: ZALEPLON 5 MG CAPSULE PO PRN (20:59)
[2019-12-27] MEDS: PANTOPRAZOLE 40 MG VIAL IV SCH (08:41)
[2019-12-27] MEDS: INSULIN REGULAR 100 UNIT/ML SUBCUT SCH ×2 (08:42→11:26)
[2019-12-27] MEDS: ROSUVASTATIN 10 MG TABLET PO SCH (08:42)
[2019-12-27] MEDS: MULTIVITAMIN (CENTRUM) TABLET PO SCH (08:42)
[2019-12-27] MEDS: SUCRALFATE 1 GM/10 ML UDCUP PO SCH ×2 (08:42→11:26)
[2019-12-27] MEDS: POTASSIUM CHLORIDE 20 MEQ/15 ML UDCUP PO SCH (08:42)
[2019-12-27] MEDS: APIXABAN 2.5 MG TABLET PO SCH (08:42)
[2019-12-27] MEDS: TAMSULOSIN 0.4 MG CAPSULE PO SCH (08:42)
[2019-12-27] MEDS: METOPROLOL SUCCINATE XL 25 MG TABLET PO SCH (08:43)
[2019-12-27] MEDS: SERTRALINE 25 MG TABLET PO SCH (08:43)
[2019-12-27] MEDS: FUROSEMIDE 20 MG TABLET PO SCH (08:43)
[2019-12-27] MEDS: MENTHOL/ZINC OXIDE OINT 71 GM JAR TOP SCH (08:49)
[2019-12-27] MEDS: DOCUSATE SODIUM 100 MG CAPSULE PO SCH (08:49)
[2019-12-27] MEDS ORDERED: predniSONE 20 MG TABLET PO SCH (09:00)
[2019-12-27] MEDS: LEVOFLOXACIN INJ 750 MG in PREMIX 1 EACH IV SCH (10:17)
[2019-12-27 12:16] VITALS: BP 140/71
== END 2019-12-27 12:40 | disposition home health service (06) | DRG 299 ==
LOC: EDBD → EDUNIT# → N.ED 11:57 → SUATTDRO 15:10 → N.EDINP 15:10 → N.2E 21:13 → N.3E 11-29 20:06 → N.ICU 12-04 21:05 → N.TELES 12-11 17:36 → N.4E 12-12 11:35
PROVIDERS: ADMIT Family Medicine; ATTEND Family Medicine

== ENCOUNTER 2020-01-31 11:57 | Inpatient (IN) ==
[2020-01-31 14:02] LABS: Basophils % 0.2 % (0.0-0.8); Eosinophils % 0.1 % (0.00-10.9); Hematocrit 42.4 VOL% (42.0-52.0); Hemoglobin 13.5 GM/DL (14.0-18.0); Immature Granulocytes % 1.3 %; Immature Granulocytes Absolute 0.12 #; Lymphocytes # 0.4 10*3/uL (1.4-4.0); Lymphocytes % 4.7 % (21.2-54.2); Mean Corpuscular HGB Conc 31.8 GM/DL (32-36); Mean Corpuscular Volume 93.4 FL (87-102); Mean Platelet Volume 11.8 FL (9.6-12.0); Monocytes % 2.9 % (1.7-12.7); Neutrophils % 90.8 % (38.7-73.9); Platelet Count 146 T/CUMM (130-400); Red Blood Count 4.54 MC/CUMM (3.8-5.5); Red Cell Distribution Width 18.9 % (9.3-17.3); White Blood Count 9.4 T/CUMM (4-12)
[2020-01-31 14:19] LABS: Albumin 1.2 G/DL (3.4-5.0); Bilirubin,Total 0.5 MG/DL (0.2-1.0); Calcium 7.3 MG/DL (8.5-10.1); Osmolality,Calculated 293.4 MOS/KG (273-304); Total Protein 5.1 G/DL (6.4-8.3)
[2020-01-31 14:27] LABS: Eosinophils 1 % (0-10); Lymphocytes 2 % (20-55); Segmented Neutrophils 96 % (50-85); Total Cells Counted 100
[2020-01-31 14:28] LABS: Platelet Estimate Adequate
[2020-01-31] MEDS ORDERED: SODIUM CHLORIDE 0.9% 500 ML IV STA (14:55)
[2020-01-31] MEDS ORDERED: PIPERACILLIN/TAZOBACTAM 3,375 MG in SODIUM CHLORIDE 0.9% 100 ML IV STA (14:55)
[2020-01-31] MEDS ORDERED: VANCOMYCIN INJ 1,250 MG in SODIUM CHLORIDE 0.9% 250 ML IV STA (14:56)
[2020-01-31] MEDS ORDERED: ONDANSETRON 4 MG/2 ML VIAL IV PRN (16:10)
[2020-01-31] MEDS ORDERED: DEXTROSE 50% 25 GM/50 ML VIAL IV PRN ×2 (16:10)
[2020-01-31] MEDS ORDERED: GLUCAGON 1 MG VIAL IM PRN (16:10)
[2020-01-31] MEDS: INSULIN LISPRO 100 UNIT/ML SUBCUT SCH (23:38)
[2020-01-31] MEDS: PIPERACILLIN/TAZOBACTAM 3,375 MG in SODIUM CHLORIDE 0.9% 100 ML IV SCH (23:39)
[2020-01-31] MEDS: ACETAMINOPHEN 325 MG TABLET PO PRN (23:46)
[2020-02-01 06:07] LABS: Basophils % 0.2 % (0.0-0.8); Eosinophils # 0.2 10*3/uL (0.0-0.87); Eosinophils % 1.3 % (0.00-10.9); Hematocrit 23.5 VOL% (42.0-52.0); Hemoglobin 7.8 GM/DL (14.0-18.0); Immature Granulocytes % 1.1 %; Immature Granulocytes Absolute 0.12 #; Lymphocytes # 1.3 10*3/uL (1.4-4.0); Lymphocytes % 11.9 % (21.2-54.2); Mean Corpuscular HGB Conc 33.2 GM/DL (32-36); Mean Corpuscular Volume 91.4 FL (87-102); Mean Platelet Volume 11.7 FL (9.6-12.0); Monocytes % 5.8 % (1.7-12.7); Neutrophils % 79.7 % (38.7-73.9); Platelet Count 159 T/CUMM (130-400); Red Blood Count 2.57 MC/CUMM (3.8-5.5); Red Cell Distribution Width 18.8 % (9.3-17.3); White Blood Count 11.2 T/CUMM (4-12)
[2020-02-01 06:34] LABS: Calcium 7.4 MG/DL (8.5-10.1); Osmolality,Calculated 291.8 MOS/KG (273-304)
[2020-02-01] MEDS: PIPERACILLIN/TAZOBACTAM 3,375 MG in SODIUM CHLORIDE 0.9% 100 ML IV SCH ×2 (08:59→16:18)
[2020-02-01] MEDS: INSULIN LISPRO 100 UNIT/ML SUBCUT SCH ×5 (09:06→21:55)
[2020-02-01] MEDS: ACETAMINOPHEN 325 MG TABLET PO PRN (12:37)
[2020-02-01] MEDS: VANCOMYCIN INJ 1,250 MG in SODIUM CHLORIDE 0.9% 250 ML IV SCH (13:54)
[2020-02-02] MEDS: PIPERACILLIN/TAZOBACTAM 3,375 MG in SODIUM CHLORIDE 0.9% 100 ML IV SCH ×3 (00:05→16:43)
[2020-02-02 06:03] LABS: Basophils % 0.3 % (0.0-0.8); Eosinophils # 0.1 10*3/uL (0.0-0.87); Eosinophils % 0.6 % (0.00-10.9); Hematocrit 24.1 VOL% (42.0-52.0); Hemoglobin 7.9 GM/DL (14.0-18.0); Immature Granulocytes % 1.5 %; Immature Granulocytes Absolute 0.17 #; Lymphocytes # 1.2 10*3/uL (1.4-4.0); Lymphocytes % 10.1 % (21.2-54.2); Mean Corpuscular HGB Conc 32.8 GM/DL (32-36); Mean Corpuscular Volume 91.6 FL (87-102); Mean Platelet Volume 11.4 FL (9.6-12.0); Monocytes % 6.1 % (1.7-12.7); Neutrophils % 81.4 % (38.7-73.9); Platelet Count 166 T/CUMM (130-400); Red Blood Count 2.63 MC/CUMM (3.8-5.5); Red Cell Distribution Width 18.3 % (9.3-17.3); White Blood Count 11.5 T/CUMM (4-12)
[2020-02-02] MEDS: INSULIN LISPRO 100 UNIT/ML SUBCUT SCH ×4 (11:34→21:08)
[2020-02-02 13:35] LABS: Apearance,Urine Slightly Hazy (Clear); Bilirubin,Urine Negative (Negative); Blood, Urine Moderate mg/dL (Negative); Glucose,Urine (UA) Negative (Negative); Ketones,Urine Negative (Negative); Mucus,Urine Occasional /LPF (Occasional); Nitrite,Urine Negative (Negative); Protein,Urine Negative; RBC,Urine 19 /HPF (0-4); Squamous Epithelial Cell,Urine Occasional /HPF (0-10); Urine Color Yellow (Yellow); Urine Specific Gravity 1.023 (1.001-1.035); Urine Urobilinogen < 2.0 EU/DL (0.2-1.0); WBC,Urine 5 /HPF (0-6)
[2020-02-02] MEDS: VANCOMYCIN INJ 1,250 MG in SODIUM CHLORIDE 0.9% 250 ML IV SCH (15:06)
[2020-02-02] MEDS: ACETAMINOPHEN 325 MG TABLET PO PRN (16:43)
[2020-02-02] MEDS: ZALEPLON 5 MG CAPSULE PO PRN (21:08)
[2020-02-03] MEDS: PIPERACILLIN/TAZOBACTAM 3,375 MG in SODIUM CHLORIDE 0.9% 100 ML IV SCH ×3 (01:08→16:31)
[2020-02-03 06:04] LABS: Calcium 6.9 MG/DL (8.5-10.1); Osmolality,Calculated 278.5 MOS/KG (273-304)
[2020-02-03] MEDS ORDERED: LEVOTHYROXINE 100 MCG TABLET PO SCH (06:30)
[2020-02-03] MEDS: INSULIN LISPRO 100 UNIT/ML SUBCUT SCH ×5 (08:52→21:18)
[2020-02-03] MEDS ORDERED: ASCORBIC ACID 500 MG TABLET PO SCH (09:00)
[2020-02-03] MEDS: PANTOPRAZOLE 40 MG TABLET PO SCH (09:31)
[2020-02-03] MEDS: ROSUVASTATIN 10 MG TABLET PO SCH (09:31)
[2020-02-03] MEDS: MAGNESIUM OXIDE 400 MG TABLET PO SCH (09:31)
[2020-02-03] MEDS: CHOLECALCIFEROL 400 UNIT TABLET PO SCH (09:31)
[2020-02-03] MEDS: METOPROLOL SUCCINATE XL 25 MG TABLET PO SCH (09:32)
[2020-02-03] MEDS: SERTRALINE 25 MG TABLET PO SCH (09:33)
[2020-02-03] MEDS: TAMSULOSIN 0.4 MG CAPSULE PO SCH ×2 (09:33→21:19)
[2020-02-03] MEDS: APIXABAN 2.5 MG TABLET PO SCH ×2 (09:33→21:19)
[2020-02-03] MEDS: VANCOMYCIN INJ 1,250 MG in SODIUM CHLORIDE 0.9% 250 ML IV SCH (14:23)
[2020-02-03] MEDS ORDERED: SKIN HEALING OINT (AQUAPHOR) 50 GM TUBE TOP PRN (14:43)
[2020-02-03] MEDS: FUROSEMIDE 20 MG TABLET PO SCH (16:39)
[2020-02-03] MEDS: ZALEPLON 5 MG CAPSULE PO PRN (21:19)
[2020-02-04] MEDS: PIPERACILLIN/TAZOBACTAM 3,375 MG in SODIUM CHLORIDE 0.9% 100 ML IV SCH ×3 (00:50→15:51)
[2020-02-04] MEDS: LEVOTHYROXINE 25 MCG TABLET PO SCH (05:30)
[2020-02-04 06:54] LABS: Basophils % 0.4 % (0.0-0.8); Eosinophils # 0.3 10*3/uL (0.0-0.87); Eosinophils % 2.9 % (0.00-10.9); Hematocrit 24.8 VOL% (42.0-52.0); Immature Granulocytes % 1.9 %; Immature Granulocytes Absolute 0.16 #; Lymphocytes # 1.6 10*3/uL (1.4-4.0); Lymphocytes % 18.6 % (21.2-54.2); Mean Corpuscular HGB Conc 32.3 GM/DL (32-36); Mean Corpuscular Volume 93.6 FL (87-102); Neutrophils % 69.2 % (38.7-73.9); Platelet Count 164 T/CUMM (130-400); Red Blood Count 2.65 MC/CUMM (3.8-5.5); Red Cell Distribution Width 18.2 % (9.3-17.3); White Blood Count 8.5 T/CUMM (4-12)
[2020-02-04] MEDS: INSULIN LISPRO 100 UNIT/ML SUBCUT SCH ×4 (07:18→20:45)
[2020-02-04 08:08] LABS: Albumin 0.9 G/DL (3.4-5.0); Bilirubin,Total 0.5 MG/DL (0.2-1.0); Calcium 7.1 MG/DL (8.5-10.1); Osmolality,Calculated 280.4 MOS/KG (273-304); Total Protein 4.6 G/DL (6.4-8.3)
[2020-02-04] MEDS: ASCORBIC ACID 500 MG TABLET PO SCH (08:19)
[2020-02-04] MEDS: SERTRALINE 25 MG TABLET PO SCH (08:19)
[2020-02-04] MEDS: MAGNESIUM OXIDE 400 MG TABLET PO SCH (08:19)
[2020-02-04] MEDS: METOPROLOL SUCCINATE XL 25 MG TABLET PO SCH (08:19)
[2020-02-04] MEDS: ROSUVASTATIN 10 MG TABLET PO SCH (08:19)
[2020-02-04] MEDS: PANTOPRAZOLE 40 MG TABLET PO SCH (08:19)
[2020-02-04] MEDS: CHOLECALCIFEROL 400 UNIT TABLET PO SCH (08:19)
[2020-02-04] MEDS: APIXABAN 2.5 MG TABLET PO SCH ×2 (08:20→20:45)
[2020-02-04] MEDS: FUROSEMIDE 20 MG TABLET PO SCH ×2 (08:20→15:52)
[2020-02-04] MEDS: TAMSULOSIN 0.4 MG CAPSULE PO SCH ×2 (08:20→20:45)
[2020-02-04] MEDS: VANCOMYCIN INJ 1,250 MG in SODIUM CHLORIDE 0.9% 250 ML IV SCH (14:40)
[2020-02-04] MEDS: ZALEPLON 5 MG CAPSULE PO PRN (20:45)
[2020-02-05] MEDS: PIPERACILLIN/TAZOBACTAM 3,375 MG in SODIUM CHLORIDE 0.9% 100 ML IV SCH ×2 (00:55→09:42)
[2020-02-05] MEDS: LEVOTHYROXINE 25 MCG TABLET PO SCH (05:33)
[2020-02-05 06:51] LABS: Basophils # 0.1 10*3/uL (0.0-0.2); Basophils % 0.7 % (0.0-0.8); Eosinophils # 0.3 10*3/uL (0.0-0.87); Eosinophils % 2.8 % (0.00-10.9); Hematocrit 23.5 VOL% (42.0-52.0); Hemoglobin 7.6 GM/DL (14.0-18.0); Immature Granulocytes % 0.9 %; Immature Granulocytes Absolute 0.08 #; Lymphocytes # 1.7 10*3/uL (1.4-4.0); Lymphocytes % 18.6 % (21.2-54.2); Mean Corpuscular HGB Conc 32.3 GM/DL (32-36); Mean Corpuscular Volume 93.6 FL (87-102); Monocytes % 6.5 % (1.7-12.7); Neutrophils % 70.5 % (38.7-73.9); Platelet Count 166 T/CUMM (130-400); Red Blood Count 2.51 MC/CUMM (3.8-5.5)
[2020-02-05 07:41] LABS: Albumin 0.8 G/DL (3.4-5.0); Bilirubin,Total 1.5 MG/DL (0.2-1.0); Calcium 6.9 MG/DL (8.5-10.1); Total Protein 4.2 G/DL (6.4-8.3)
[2020-02-05] MEDS: INSULIN LISPRO 100 UNIT/ML SUBCUT SCH ×4 (07:41→21:51)
[2020-02-05] MEDS: FUROSEMIDE 20 MG TABLET PO SCH ×2 (09:45→17:08)
[2020-02-05] MEDS: ASCORBIC ACID 500 MG TABLET PO SCH (09:46)
[2020-02-05] MEDS: TAMSULOSIN 0.4 MG CAPSULE PO SCH ×2 (09:46→21:51)
[2020-02-05] MEDS: PANTOPRAZOLE 40 MG TABLET PO SCH (09:46)
[2020-02-05] MEDS: ROSUVASTATIN 10 MG TABLET PO SCH (09:46)
[2020-02-05] MEDS: CHOLECALCIFEROL 400 UNIT TABLET PO SCH (09:46)
[2020-02-05] MEDS: METOPROLOL SUCCINATE XL 25 MG TABLET PO SCH (09:46)
[2020-02-05] MEDS: APIXABAN 2.5 MG TABLET PO SCH ×2 (09:46→21:51)
[2020-02-05] MEDS: MAGNESIUM OXIDE 400 MG TABLET PO SCH (09:46)
[2020-02-05] MEDS: SERTRALINE 25 MG TABLET PO SCH (09:47)
[2020-02-05] MEDS: ALBUMIN 25% 25 GM in PREMIX 1 EACH IV SCH ×2 (14:28→22:10)
[2020-02-05] MEDS: metroNIDAZOLE 500 MG TABLET PO SCH ×2 (14:36→21:51)
[2020-02-05] MEDS: CEFUROXIME 500 MG TABLET PO SCH (17:07)
[2020-02-05] MEDS: LINEZOLID 600 MG TABLET PO SCH (21:51)
[2020-02-06] MEDS: LEVOTHYROXINE 25 MCG TABLET PO SCH (06:04)
[2020-02-06] MEDS: ALBUMIN 25% 25 GM in PREMIX 1 EACH IV SCH ×2 (06:07→15:26)
[2020-02-06 06:21] LABS: Basophils % 0.5 % (0.0-0.8); Eosinophils # 0.2 10*3/uL (0.0-0.87); Eosinophils % 2.6 % (0.00-10.9); Hematocrit 21.6 VOL% (42.0-52.0); Immature Granulocytes % 1.2 %; Immature Granulocytes Absolute 0.09 #; Lymphocytes % 13.4 % (21.2-54.2); Mean Corpuscular HGB Conc 32.4 GM/DL (32-36); Mean Corpuscular Volume 91.5 FL (87-102); Mean Platelet Volume 10.5 FL (9.6-12.0); Monocytes % 6.2 % (1.7-12.7); Neutrophils % 76.1 % (38.7-73.9); Platelet Count 162 T/CUMM (130-400); Red Blood Count 2.36 MC/CUMM (3.8-5.5); Red Cell Distribution Width 18.2 % (9.3-17.3); White Blood Count 7.8 T/CUMM (4-12)
[2020-02-06 06:52] LABS: Albumin 1.5 G/DL (3.4-5.0); Bilirubin,Total 0.5 MG/DL (0.2-1.0); Calcium 7.4 MG/DL (8.5-10.1); Osmolality,Calculated 285.1 MOS/KG (273-304); Total Protein 4.4 G/DL (6.4-8.3)
[2020-02-06] MEDS: INSULIN LISPRO 100 UNIT/ML SUBCUT SCH ×3 (07:05→17:04)
[2020-02-06] MEDS: CEFUROXIME 500 MG TABLET PO SCH ×2 (09:04→17:15)
[2020-02-06] MEDS: APIXABAN 2.5 MG TABLET PO SCH (09:05)
[2020-02-06] MEDS: metroNIDAZOLE 500 MG TABLET PO SCH ×2 (09:05→16:28)
[2020-02-06] MEDS: METOPROLOL SUCCINATE XL 25 MG TABLET PO SCH (09:05)
[2020-02-06] MEDS: MAGNESIUM OXIDE 400 MG TABLET PO SCH (09:05)
[2020-02-06] MEDS: PANTOPRAZOLE 40 MG TABLET PO SCH (09:05)
[2020-02-06] MEDS: TAMSULOSIN 0.4 MG CAPSULE PO SCH (09:05)
[2020-02-06] MEDS: ROSUVASTATIN 10 MG TABLET PO SCH (09:05)
[2020-02-06] MEDS: FUROSEMIDE 20 MG TABLET PO SCH ×2 (09:05→16:28)
[2020-02-06] MEDS: ASCORBIC ACID 500 MG TABLET PO SCH (09:06)
[2020-02-06] MEDS: LINEZOLID 600 MG TABLET PO SCH (09:06)
[2020-02-06] MEDS: CHOLECALCIFEROL 400 UNIT TABLET PO SCH (09:06)
[2020-02-06 21:14] VITALS: BP 104/54
== END 2020-02-06 17:15 | disposition home health service (06) | DRG 299 ==
LOC: EDBD → EDUNIT# → N.ED 11:57 → N.EDINP 16:08 → N.3E 21:03
PROVIDERS: ADMIT Family Medicine; ATTEND Family Medicine